=== PATIENT | female | born 1940 | race Caucasian/White ===

== ENCOUNTER 2020-01-25 19:46 | Emergency (ER) | payer BC, OTHER ==
--- NOTE | 2020-01-25 20:51 | RAD REPORT ---
EXAM DESCRIPTION: RAD - Chest Single View - 01/25/2020 8:37 pm CLINICAL HISTORY: CHEST PAIN Chest pain. COMPARISON: Chest Pa And Lat (2 Views) dated 03/10/2017; Chest Pa And Lat (2 Views) dated 07/16/2016; C HEST PA AND LAT 2 VIEW dated 04/20/2008 FINDINGS: Portable technique limits examination quality. The lungs are emphysematous but grossly clear. The heart is normal in size. 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 IMPRESSION: Mild COPD
[2020-01-25 20:55] LABS: Absolute Lymphocytes (CBC) 0.7 K/uL (0.7-4.9); Basophils % 0.2 % (0-1.3); Hematocrit 32.7 % (36.0-45.0); Lymphocytes % 5.1 % (15.3-44.8); MPV 9.3 fL (7.6-11.3); RBC Red Blood Cell Count 3.51 M/uL (3.86-4.86)
[2020-01-25 20:56] LABS: Protime INR 1.09
[2020-01-25 21:13] LABS: Albumin 4.2 g/dL (3.4-5.0); Alkaline Phosphatase 128 U/L (45-117); BUN Blood Urea Nitrogen 29 mg/dL (7-18); Bicarbonate 24 mmol/L (21-32); Bilirubin Direct 0.3 mg/dL (0-0.2); Bilirubin Total 0.8 mg/dL (0.2-1.0); Glucose Level 79 mg/dL (74-106); Lipase 5380 U/L (73-393); Magnesium 2.3 mg/dL (1.8-2.4); NT PRO-BNP 1724 pg/mL (<450); Potassium 3.8 mmol/L (3.5-5.1); Protein, Total 7.5 g/dL (6.4-8.2); Sodium Level 133 mmol/L (136-145); Troponin (Emerg Dept Use Only) < 0.02 ng/mL (0.0-0.045)
[2020-01-25 21:15] LABS: ALT/SGPT 812 U/L (12-78); AST/SGOT 594 U/L (15-37)
--- NOTE | 2020-01-25 21:58 | RAD REPORT ---
EXAM DESCRIPTION: US - Abdomen Exam Limited - 01/25/2020 9:35 pm CLINICAL HISTORY: ABD PAIN COMPARISON: No comparisons FINDINGS: The gallbladder is very contracted and thus poorly assessed. No gross stone is visible. Th e common bile duct is normal measuring 2 mm. The liver demonstrates no findings of intrahepatic biliary dilatation. IMPRESSION: Significantly orion gallbladder limiting study quality.
[2020-01-25] MEDS ORDERED: PIPER/TAZO/NS 3.375gm 3.375 GM/100 ML BAG ONE (22:06)
--- NOTE | 2020-01-25 23:12 | EDPHYS ---
Physician Documentation [facility] Name: Daisy Valdes Age: 79 yrs Sex: Female : 1940 Arrival Date: 01/25/2020 Time: 19:48 Bed 20 Private MD: ED Physician Jackson Wright HPI: 01/24 20:18 This 79 yrs old Female presents to ER via Ambulatory with complaints of Chest pkl Pain. 20:18 The patient or guardian reports chest pain that is located primarily in the substernal pkl area. Onset: last night, and happened this evening. The chest pain is described as dull. Historical: - Allergies: 20:49 No Known Allergies; jd3 - Home Meds: 20:49 carvedilol oral oral [Active]; Tylenol #3 Oral [Active]; amlodipine oral [Active]; jd3 losartan oral oral [Active]; Bactrim DS Oral [Active]; atorvastatin oral oral [Active]; eye drops [Active]; - PMHx: 01/25 00:58 Hypertension; sg - Immunization history:: Adult Immunizations up to date. - Social history:: Smoking status: Patient reports the use of cigarette tobacco products, unknown amount. ROS: 01/24 20:18 Eyes: Negative for injury, pain, redness, and discharge, ENT: Negative for injury, pkl pain, and discharge, Neck: Negative for injury, pain, and swelling. Cardiovascular: Positive for chest pain, of the substernal. Respiratory: Negative for cough, shortness of breath. Abdomen/GI: Negative for abdominal pain, nausea, vomiting, and diarrhea. Back: Negative for acute changes. : Negative for urinary symptoms. MS/extremity: Negative for acute changes. Skin: Negative for rash. Neuro: Negative for altered mental status, loss of consciousness. Exam: 20:18 Head/Face: Normocephalic, atraumatic. Eyes: Pupils equal round and reactive to light, pkl extra-ocular motions intact. Lids and lashes normal. Conjunctiva and sclera are non-icteric and not injected. Cornea within normal limits. Periorbital areas with no swelling, redness, or edema. ENT: Nares patent. No nasal discharge, no septal abnormalities noted. Tympanic membranes are normal and external auditory canals are clear. Oropharynx with no redness, swelling, or masses, exudates, or evidence of obstruction, uvula midline. Mucous membranes moist. Neck: Trachea midline, no thyromegaly or masses palpated, and no cervical lymphadenopathy. Supple, full range of motion without nuchal rigidity, or vertebral point tenderness. No Meningismus. Chest/axilla: Normal chest wall appearance and motion. Nontender with no deformity. No lesions are appreciated. Cardiovascular: Regular rate and rhythm with a normal S1 and S2. No gallops, murmurs, or rubs. Normal PMI, no JVD. No pulse deficits. Respiratory: Lungs have equal breath sounds bilaterally, clear to auscultation and percussion. No rales, rhonchi or wheezes noted. No increased work of breathing, no retractions or nasal flaring. Abdomen/GI: Soft, non-tender, with normal bowel sounds. No distension or tympany. No guarding or rebound. No evidence of tenderness throughout. Back: No spinal tenderness. No costovertebral tenderness. Full range of motion. Skin: Warm, dry with normal turgor. Normal color with no rashes, no lesions, and no evidence of cellulitis. MS/ Extremity: Pulses equal, no cyanosis. Neurovascular intact. Full, normal range of motion. Neuro: Awake and alert, GCS 15, oriented to person, place, time, and situation. Cranial nerves II-XII grossly intact. Motor strength 5/5 in all extremities. Sensory grossly intact. Cerebellar exam normal. Normal gait. Vital Signs: 20:11 BP 137 / 63; Pulse 81; Resp 19 S; Temp 97.4(TE); Pulse Ox 95% on R/A; Weight 49.9 kg jd3 (R); Height 4 ft. 10 in. (147.32 cm) (R); Pain 7/10; 20:50 BP 128 / 96; Pulse 72; Resp 17 S; Pulse Ox 94% on R/A; Pain 0/10; jd3 21:37 BP 142 / 68; Pulse 76; Resp 17 S; Pulse Ox 95% on R/A; jd3 22:36 BP 155 / 74; Pulse 90; Resp 18 S; Pulse Ox 95% on R/A; jd3 23:43 BP 132 / 59; Pulse 86; Resp 18 S; Pulse Ox 96% on R/A; jd3 01/25 01:40 BP 130 / 60; Pulse 72; Resp 18; Temp 97.4; Pulse Ox 97% on R/A; Pain 0/10; sg 01/24 20:11 Body Mass Index 22.99 (49.90 kg, 147.32 cm) jd3 MDM: 01/24 20:01 Patient medically screened. pkl 21:28 Data reviewed: vital signs, nurses notes, lab test result(s), EKG, radiologic studies, pkl CT scan, plain films, ultrasound. ED course: Talked to Dr. Ceballos, admit. To consult Dr. Dang. Talked Seferino ( Dr. Dang' s staff ) regarding consult requested. 21:41 ED course: Talked to Dr. Dang, patient has gallstone pancreatitis and need ERCP. To pkl transter patient to [facility]. 01/24 20:16 Order name: Basic Metabolic Panel; Complete Time: 21:16 pk 01/24 20:16 Order name: CBC with Diff; Complete Time: 20:58 pk 01/24 20:16 Order name: LFT's; Complete Time: 21:17 pk 01/24 20:16 Order name: Magnesium; Complete Time: 21:17 pk 01/24 20:16 Order name: NT PRO-BNP; Complete Time: 21:17 pk 01/24 20:16 Order name: PT-INR; Complete Time: 20:58 pk 01/24 20:16 Order name: Troponin (emerg Dept Use Only); Complete Time: 21:17 pk 01/24 20:16 Order name: XRAY Chest (1 view); Complete Time: 20:58 pk 01/24 20:16 Order name: Lipase; Complete Time: 21:17 pk 01/24 20:17 Order name: US Abdomen Limited; Complete Time: 22:07 pk 01/24 21:28 Order name: CT Abd/Pelvis - IV Contrast Only pk 01/25 00:48 Order name: SARS-COV-2 RT PCR; Complete Time: 02:10 EDMA 01/24 20:16 Order name: EKG; Complete Time: 20:17 pk 01/24 20:16 Order name: Cardiac monitoring; Complete Time: 20:24 pk 01/24 20:16 Order name: EKG - Nurse/Tech; Complete Time: 20:23 pkl 01/24 20:16 Order name: IV Saline Lock; Complete Time: 20:39 pkl 01/24 20:16 Order name: Labs collected and sent; Complete Time: 20:39 pkl 01/24 20:16 Order name: O2 Per Protocol; Complete Time: 20:24 pkl 01/24 20:16 Order name: O2 Sat Monitoring; Complete Time: 20:24 pkl Administered Medications: 22:35 Drug: Zosyn 3.375 grams Route: IVPB; Infused Over: 60 mins; Site: right antecubital; jd3 23:35 Follow up: Response: No adverse reaction; IV Status: Completed infusion; IV Intake: jd3 100ml 23:13 Drug: NS 0.9% 500 ml Route: IV; Rate: bolus; Site: right antecubital; jd3 23:42 Follow up: Response: No adverse reaction; IV Status: Completed infusion; IV Intake: jd3 500ml 23:41 Drug: NS 0.9% 1000 ml Route: IV; Rate: 100 ml/hr; Site: right antecubital; jd3 23:42 Follow up: Response: No adverse reaction; IV Status: Infusion continued upon transfer j 01/25 01:52 Follow up: Response: No adverse reaction; IV Status: Infusion continued upon transfer; sg IV Intake: 700ml Disposition: 01/25/20 23:11 Transfer ordered to [facility]. Diagnosis is Gallstone pancreatitis. - Reason for transfer: Higher level of care. - Accepting physician is Dr. Zambrano. - Condition is Stable. - Problem is new. - Symptoms have improved. Signatures: Dispatcher [employer] EDMA Ashvin Randhawa RN Jackson Darden MD MD pkl Davies, Jonathon, RN RN jd3 Corrections: (The following items were deleted from the chart) 01/24 22:42 22:02 CORONAVIRUS+MR.LAB.BRZ ordered. [facility] 01/25 01:52 01/24 23:11 01/25/2020 23:11 Transfer ordered to [facility]. Diagnosis is sg Gallstone pancreatitis. Reason for transfer: Higher level of care. Accepting physician is Dr. Zambrano. Condition is Stable. Problem is new. Symptoms have improved. pkl
--- NOTE | 2020-01-25 23:12 | ER ---
Nurse's Notes [facility] Name: Daisy Valdes Age: 79 yrs Sex: Female : 1940 Arrival Date: 01/25/2020 Time: 19:48 Bed 20 Private MD: Diagnosis: Gallstone pancreatitis Presentation: 01/24 20:04 Chief complaint: Patient states: initial chest pain last night started in right dm5 shoulder to mid chest and down. It went away and then happened again this evening across breast area. pT rated pain at 10/10 when it occurs. Pt states she thinks it could possibly be her gallbladder because it has happened before after she ate. Coronavirus screen: Client denies travel out of the [place] in the last 14 days. At this time, the client does not indicate any symptoms associated with coronavirus-19. Ebola Screen: Patient negative for fever greater than or equal to 101.5 degrees Fahrenheit, and additional compatible Ebola Virus Disease symptoms Patient denies exposure to infectious person. Patient denies travel to an Ebola-affected area in the 21 days before illness onset. No symptoms or risks identified at this time. Onset of symptoms was January 25, 2020. 20:04 Method Of Arrival: Ambulatory dm5 20:04 Acuity: YANNICK 2 dm5 20:15 Initial Sepsis Screen: Does the patient meet any 2 criteria? No. Patient's initial jd3 sepsis screen is negative. Does the patient have a suspected source of infection? No. Patient's initial sepsis screen is negative. Risk Assessment: Do you want to hurt yourself or someone else? Patient reports no desire to harm self or others. Historical: - Allergies: 20:49 No Known Allergies; jd3 - Home Meds: 20:49 carvedilol oral oral [Active]; Tylenol #3 Oral [Active]; amlodipine oral [Active]; jd3 losartan oral oral [Active]; Bactrim DS Oral [Active]; atorvastatin oral oral [Active]; eye drops [Active]; - PMHx: 01/25 00:58 Hypertension; sg - Immunization history:: Adult Immunizations up to date. - Social history:: Smoking status: Patient reports the use of cigarette tobacco products, unknown amount. Screenin/19 20:14 Abuse screen: Denies threats or abuse. Nutritional screening: No deficits noted. jd3 Tuberculosis screening: No symptoms or risk factors identified. Fall Risk Ambulatory Aid- None/Bed Rest/Nurse Assist (0 pts). Gait- Normal/Bed Rest/Wheelchair (0 pts) Mental Status- Oriented to own ability (0 pts). Total Morejon Fall Scale indicates No Risk (0-24 pts). Assessment: 20:12 General: Appears in no apparent distress. comfortable, Behavior is calm, cooperative, jd3 appropriate for age. Pain: Complains of pain in chest Pain does not radiate. Quality of pain is described as pressure, Pain began 2-3 days ago. Is intermittent. Neuro: Level of Consciousness is awake, alert, obeys commands, Oriented to person, place, time, situation. Cardiovascular: Capillary refill < 3 seconds Patient's skin is warm and dry. Rhythm is regular. Respiratory: Airway is patent Respiratory effort is even, unlabored, Respiratory pattern is regular, symmetrical, Denies cough, shortness of breath. GI: No signs and/or symptoms were reported involving the gastrointestinal system. Abdomen is flat, non-distended, Abd is soft and non tender X 4 quads. : No signs and/or symptoms were reported regarding the genitourinary system. EENT: No signs and/or symptoms were reported regarding the EENT system. Derm: Skin is intact, Skin is dry, Skin is normal, Skin temperature is warm. Musculoskeletal: Circulation, motion, and sensation intact. Range of motion: intact in all extremities. 20:49 Reassessment: Patient appears in no apparent distress at this time. No changes from jd3 previously documented assessment. Patient and/or family updated on plan of care and expected duration. Pain level reassessed. Patient is alert, oriented x 3, equal unlabored respirations, skin warm/dry/pink. 21:38 Reassessment: Patient appears in no apparent distress at this time. Patient and/or jd3 family updated on plan of care and expected duration. Pain level reassessed. Patient is alert, oriented x 3, equal unlabored respirations, skin warm/dry/pink. 22:35 Reassessment: Patient appears in no apparent distress at this time. Patient and/or jd3 family updated on plan of care and expected duration. Pain level reassessed. Patient is alert, oriented x 3, equal unlabored respirations, skin warm/dry/pink. Patient denies pain at this time. 23:42 Reassessment: Patient appears in no apparent distress at this time. Patient and/or jd3 family updated on plan of care and expected duration. Pain level reassessed. Patient is alert, oriented x 3, equal unlabored respirations, skin warm/dry/pink. awaiting room assignment for transfer Patient denies pain at this time. 01/25 00:13 Reassessment: Patient appears in no apparent distress at this time. pt and pt family sg updated that the COVID test is having to be re ran due to an error with the machine per Rosa in outside lab, pt and pt family stated understanding. 00:15 Reassessment: Patient appears in no apparent distress at this time. Patient and/or sg family updated on plan of care and expected duration. Pain level reassessed. Patient is alert, oriented x 3, equal unlabored respirations, skin warm/dry/pink. Patient denies pain at this time. Vital Signs: 01/24 20:11 BP 137 / 63; Pulse 81; Resp 19 S; Temp 97.4(TE); Pulse Ox 95% on R/A; Weight 49.9 kg jd3 (R); Height 4 ft. 10 in. (147.32 cm) (R); Pain 7/10; 20:50 BP 128 / 96; Pulse 72; Resp 17 S; Pulse Ox 94% on R/A; Pain 0/10; jd3 21:37 BP 142 / 68; Pulse 76; Resp 17 S; Pulse Ox 95% on R/A; jd3 22:36 BP 155 / 74; Pulse 90; Resp 18 S; Pulse Ox 95% on R/A; jd3 23:43 BP 132 / 59; Pulse 86; Resp 18 S; Pulse Ox 96% on R/A; jd3 01/25 01:40 BP 130 / 60; Pulse 72; Resp 18; Temp 97.4; Pulse Ox 97% on R/A; Pain 0/10; sg 01/24 20:11 Body Mass Index 22.99 (49.90 kg, 147.32 cm) d3 ED Course: 01/24 19:48 Patient arrived in ED. ag3 20:01 Jackson Wright MD is Attending Physician. pkl 20:05 Triage completed. dm5 20:11 Moe, Paulino, RN is Primary Nurse. jd3 20:12 Arm band placed on. EKG completed in triage. Results shown to MD. jd3 20:15 Patient has correct armband on for positive identification. Placed in gown. Bed in low jd3 position. Call light in reach. Side rails up X2. Adult w/ patient. desk monitor on. Pulse ox on. NIBP on. 20:15 Patient maintains SpO2 saturation greater than 95% on room air. jd3 20:37 XRAY Chest (1 view) In Process Unspecified. EDMS 20:39 No provider procedures requiring assistance completed. Initial lab(s) drawn, by me, ca1 sent to lab. Inserted saline lock: 20 gauge in right antecubital area, using aseptic technique. Blood collected. 21:16 Notified ED physician of a critical lab result(s). ALT- 812, AST- 594. jd3 21:35 US Abdomen Limited In Process Unspecified. EDMS 21:44 Initiated transfer with Nubia Calero at [facility]. tt3 21:58 Nubia called back with their GI specialist to speak with Dr. Wright regarding the tt3 transfer request. 22:08 Nubia called back to speak with Dr. Wright regarding the transfer request. Per Dr. Wright tt3 the request was denied due to capacity. 22:10 Initiated transfer at [facility] with Zainab Bhatti. tt3 22:16 CT Abd/Pelvis - IV Contrast Only In Process Unspecified. EDMS 22:36 Zainab Bhatti called back from [facility] and stated that the transfer request tt3 was denied due to capacity. 22:42 Initiated transfer at [facility] with Traciemitzi. Placed on hold while she checked for beds tt3 and stated she would page their physician and call back. 23:02 Grazyna called back with their physician to speak with Dr. Wright regarding the transfer tt3 request. 23:13 Grazyna called back and requested a face sheet be faxed to . Stated that tt3 once covid results come back to call and provide them. The accepting physician is Karime Duarte. 23:43 Patient transferred, IV remains in place. jd3 23:59 Primary Nurse role handed off by Paulino Moe, NORTH sg 23:59 Ashvin Randhawa, RN is Primary Nurse. sg Administered Medications: 22:35 Drug: Zosyn 3.375 grams Route: IVPB; Infused Over: 60 mins; Site: right antecubital; jd3 23:35 Follow up: Response: No adverse reaction; IV Status: Completed infusion; IV Intake: jd3 100ml 23:13 Drug: NS 0.9% 500 ml Route: IV; Rate: bolus; Site: right antecubital; jd3 23:42 Follow up: Response: No adverse reaction; IV Status: Completed infusion; IV Intake: jd3 500ml 23:41 Drug: NS 0.9% 1000 ml Route: IV; Rate: 100 ml/hr; Site: right antecubital; jd3 23:42 Follow up: Response: No adverse reaction; IV Status: Infusion continued upon transfer [facility] 01/25 01:52 Follow up: Response: No adverse reaction; IV Status: Infusion continued upon transfer; IV Intake: 700ml Intake: 01/24 23:35 IV: 100ml; Total: 100ml. [facility] 23:42 IV: 500ml; Total: 600ml. [facility] 01/25 01:52 IV: 700ml; Total: 1300ml. sg Outcome: 01/24 23:11 ER care complete, transfer ordered by . isidoro 01/25 01:18 Transferred by ground EMS to [facility], Transfer form completed. sg Transferred Note: report given to Danni KAT with [facility] Condition: good Instructed on follow up and referral plans. the need for transfer, safety practices, Demonstrated understanding of instructions. 01:52 Patient left the ED. Signatures: Dispatcher [facility] DANNYMI Linn Wilson RN RN dm5 Gay, Steven, RN RN Jackson Messina MD MD pkl Davies, Jonathon, RN RN [email or web address] Maria Luisa Clancy Cheryl, RN RN ca1 Trim, Tyler tt3 Corrections: (The following items were deleted from the chart) 01/24 22:09 22:08 Nubia called back to speak with Dr. Wright regarding the transfer request. tt3 tt3 22:42 22:35 CORONAVIRUS+ drawn and sent. [facility] EDMI 23:16 22:42 Initiated transfer at [facility] with Brandon. Placed on hold while she checked for tt3 beds and stated she would page their physician and call back. tt3
[2020-01-25] MEDS ORDERED: NA CHLORIDE 0.9% 1,000 ML ONE (23:22)
--- NOTE | 2020-01-26 06:23 | EKG ---
Test Date: 2020-01-25 Test Time: 20:05:03 Picture Painter: JACKELIN MEASUREMENT RESULTS: Intervals: Rate: 80 TX: 148 QRSD: 72 QT: 344 QTc: 396 [place]: P: 30 TX: 148 QRS: 22 T: 32 INTERPRETIVE STATEMENTS: Normal sinus rhythm Possible Left atrial enlargement Anterior infarct, age undetermined Abnormal ECG No previous ECG available for comparison Electronically Signed On 01-26-20 06:22:33 FISH SMOKER by Arya Patel
[2020-01-26 20:36] VITALS: TEMP 97.4
[2020-01-26 20:49] VITALS: BP 130/60; O2SAT 97
--- NOTE | 2020-01-26 21:04 | RAD REPORT ---
EXAM DESCRIPTION: CT Abdomen and Pelvis With Intravenous Contrast CLINICAL HISTORY: The patient is 79 years old and is Female; ABD PAIN TECHNIQUE: Axial computed tomography images of the abdomen and pelvis with intravenous contrast. S agittal and coronal reformatted images were created and reviewed. This CT exam was performed using one or more of the following dose reduction techniques: automated exposure control, adjustment of t he mA and/or kV according to patient size, and/or use of iterative reconstruction technique. COMPARISON: No relevant prior studies available. FINDINGS: LUNG BASES: Unremarkable. No mass. No consolidation. ABDOMEN: LIVER: Unremarkable. No mass. GALLBLADDER AND BILE DUCTS: Multiple calcified gallstones are present within the gallbladder. Vignesh iary dilatation is noted with the common bile duct measuring up to 0.8 cm. PANCREAS: No ductal dilation. No mass. SPLEEN: Unremarkable. ADRENALS: Unremarkable. No mass. KIDNEYS AND URETERS: Unremarkable. The kidneys enhance symmetrically. No obstructing renal or ure teral calculus is seen. No hydronephrosis or hydroureter. No perinephric fluid or stranding. STOMACH AND BOWEL: The stomach is decompressed. The majority the small bowel is also decompressed . Evaluation of bowel is limited secondary to the lack of mesenteric fat in oral contrast. Stool is p resent throughout colon. There is no bowel obstruction. PELVIS: APPENDIX: No findings to suggest acute appendicitis. BLADDER: The bladder is moderately distended. REPRODUCTIVE: Unremarkable as visualized. ABDOMEN and PELVIS: INTRAPERITONEAL SPACE: Unremarkable. No free air. No significant fluid collection. BONES/JOINTS: The bones are osteopenic. Multilevel degenerative change of the spine is present. V ertebral plana of L1 is noted. SOFT TISSUES: The soft tissues are normal. VASCULATURE: Atherosclerosis of the vasculature is present. Atherosclerosis of the vasculature is present. The vessels are normal in caliber. No abdominal aortic aneurysm. LYMPH NODES: Unremarkable. No enlarged lymph nodes. IMPRESSION: Cholelithiasis with moderate intra and extrahepatic biliary dilatation. Further evaluati on with ultrasound and/or MRCP is recommended. Electronically signed by: Ashley Joya MD 01/25/2020 10:32 PM MECHANOTHERAPIST Due to temporary technical issues with the PACS/Fluency reporting system, reports are being signed by the in house radiologists without review as a courtesy to insure prompt reporting. The interpreting radiologist is fully responsible for the content of the report.
== END 2020-01-26 01:52 | disposition short-term general hospital (02) ==
LOC: ER 19:46
DX: K85.10 Biliary acute pancreatitis without necrosis or infection (principal); Z20.828 Contact with and (suspected) exposure to other viral communicable diseases; I10 Essential (primary) hypertension; F17.210 Nicotine dependence, cigarettes, uncomplicated
CPT/HCPCS: 96365; 93005; 85025; 80048; 36415; 83735; 85610; 80076; 84484; 83690; 83880; 74177; 71045; 76705; 99285; U0003; Q9967; J2543; J7030

== ENCOUNTER 2021-07-12 10:00 | Emergency (ER) | payer OTHER, BC ==
--- OUTSIDE RECORDS SUMMARY | 2021-07-12 10:04 | XMS REPORT | Continuity of Care Document ---
:1940 Author Organization [facility] t Address [address] [place] [address] Care Team Providers Name Role Phone CLEWING Attending Clinician Unavailable MD Holly YE Attending Clinician Unavailable EPHRAIM Admitting Clinician Unavailable MD Holly YE Admitting Clinician Unavailable Problems This patient has no known problems. Allergies, Adverse Reactions, Alerts This patient has no known allergies or adverse reactions. Medications This patient has no known medications. Procedures This patient has no known procedures. Encounters Start End Encounter Admission Attending Care Care Encounter Source Date/Time Date/Time Type Type Clinicians Facility Department ID 2020-04-26 2020-04-26 Outpatient [facility] [id number] [place] 00:00:00 00:00:[address] 2020-04-05 2020-04-05 Outpatient [facility] [id number] [place] 00:00:00 00:00:[address] 2020-01-26 2020-01-30 Inpatient [facility] [id number] [place] 00:00:00 00:00:[address] [facility] [address] Results Test Description Test Time Test Comments Results Result Comments Source SARS-CoV-2 (COVID-19) RNA [Presence] in Respiratory sp ecimen by 2020-01-28 14:34:34 [facility] with probe detection Test Item Value Reference Range Interpretation Comme nts SARS-CoV-2 (COVID-19) RNA [Presence] in Respiratory Not detected No t-Detected specimen by [facility] with probe detection (test code = 50875-9)
[2021-07-12] MEDS ORDERED: LIDOCAINE 4% PATCH ONE (10:31)
--- NOTE | 2021-07-12 11:43 | RAD REPORT ---
EXAM DESCRIPTION: RAD - Shoulder Right 2 View - 07/12/2021 11:34 am CLINICAL HISTORY: PAIN COMPARISON: No comparisons FINDINGS/IMPRESSION: No acute fracture. No malalignment. No significant focal degenerative changes.
--- NOTE | 2021-07-12 12:50 | EDPHYS ---
Physician Documentation [facility] Name: Daisy Valdes Age: 80 yrs Sex: Female : 1940 Arrival Date: 07/12/2021 Time: 10:02 Bed 15 Private MD: Brandon Ceballos C ED Physician Ron Dobbs HPI: 07/12 10:30 This 80 yrs old Female presents to ER via Wheelchair with complaints of Shoulder Pain. pm1 10:30 The patient or guardian complains of pain. pm1 10:30 right shoulder and right trapezius. Context: The patient reports no obvious deformity. pm1 negative for injury. Onset: The symptoms/episode began/occurred chronic for many years, worse the past 1 week. Modifying factors: the symptoms are alleviated by nothing. The symptoms are aggravated by movement. Associated signs and symptoms: Pertinent negatives: Numbness in right arm tingling, Weakness in right arm. Severity of symptoms: in the emergency department the symptoms are actually worse. Treatment prior to arrival includes: prescription medications, codeine, prior to arrival. The patient has not recently seen a physician. Historical: - Allergies: 10:24 No Known Allergies; ss - PMHx: 10:24 Hypertension; Osteoporosis; ss - Immunization history:: Client reports receiving the 2nd dose of the Covid vaccine. - Social history:: Smoking status: Patient denies any tobacco usage or history of. ROS: 10:30 Constitutional: Negative for fever, chills, and weight loss, Cardiovascular: Negative pm1 for chest pain, palpitations, and edema, Respiratory: Negative for shortness of breath, cough, wheezing, and pleuritic chest pain. 10:30 Skin: Negative for injury, rash, and discoloration, Neuro: Negative for headache, weakness, numbness, tingling, and seizure. 10:30 MS/extremity: Positive for pain, of the right trapezius and right shoulder, Negative for decreased range of motion, deformity. 10:30 All other systems are negative. Exam: 10:30 Constitutional: This is a well developed, well nourished patient who is awake, alert, pm1 and in no acute distress. Head/Face: Normocephalic, atraumatic. 10:30 Skin: Warm, dry with normal turgor. Normal color with no rashes, no lesions, and no evidence of cellulitis. 10:30 Cardiovascular: Exam negative for acute changes, Rate: normal, Rhythm: regular, Pulses: no pulse deficits are appreciated, Heart sounds: normal. 10:30 Respiratory: Exam negative for acute changes, respiratory distress, shortness of breath. 10:30 Back: kyphosis, that is marked. 10:30 Musculoskeletal/extremity: Extremities: grossly normal except: noted in the right trapezius and right shoulder: tenderness, There is no evidence of decreased ROM, deformity, the right hand Sensation intact. Vital Signs: 10:22 BP 176 / 82; Pulse 108; Resp 17; Temp 98.2(TE); Pulse Ox 100% on R/A; Weight 42.64 kg; ss 12:12 BP 152 / 84; Pulse 99; Resp 18; Pulse Ox 100% on R/A; ld1 13:08 BP 146 / 82; Pulse 86; Resp 18; Pulse Ox 100% on R/A; Pain 5/10; ld1 MDM: 10:30 Patient medically screened. pm1 12:47 Data reviewed: vital signs. Data interpreted: Pulse oximetry: on room air is 100 %. pm1 Interpretation: normal. Counseling: I had a detailed discussion with the patient and/or guardian regarding: the historical points, exam findings, and any diagnostic results supporting the discharge/admit diagnosis, radiology results, the need for outpatient follow up, a family practitioner, to return to the emergency department if symptoms worsen or persist or if there are any questions or concerns that arise at home. 12:58 ED course: Patient also reports mild left shoulder and trapezius pain. Symptoms are due pm1 to her kyphosis . 07/12 10:28 Order name: Shoulder Right (2 View) XRAY; Complete Time: 12:05 pm1 Administered Medications: 10:28 Drug: Lidoderm Patch 5 % (700 mg/patch) 1 patches {Note: 4 % available. OK per lauryn Voss AIRFRAME AND POWERPLANT MECHANIC. Applied to R shoulder as requested.} Route: Topical; Site: affected area; 12:55 Drug: [place] (HYDROcodone-acetaminophen) 5 mg-325 mg 1 tabs Route: PO; ld1 13:08 Follow up: Response: No adverse reaction ld1 12:55 Drug: Decadron (dexamethasone) 10 mg Route: IM; Site: right deltoid; ld1 13:08 Follow up: Response: No adverse reaction ld1 Disposition Summary: 07/12/21 12:49 Discharge Ordered Location: Home pm1 Problem: new pm1 Symptoms: have improved pm1 Condition: Stable pm1 Diagnosis - Pain in right shoulder pm1 Followup: pm1 - With: Emergency Department - When: As needed - Reason: Worsening of condition Followup: pm1 - With: Private Physician - When: 2 - 3 days - Reason: Recheck today's complaints, Continuance of care, Re-evaluation by your physician Discharge Instructions: - Discharge Summary Sheet pm1 - Shoulder Pain pm1 Forms: - Medication Reconciliation Form pm1 - Thank You Letter pm1 - Antibiotic Education pm1 - Prescription Opioid Use pm1 Signatures: Dispatcher [employer] EDMS Darlin Gutierrez RN RN Bipin Bruce NP AIRFRAME AND POWERPLANT MECHANIC pm1 Liz Villagran RN RN ld1
--- NOTE | 2021-07-12 12:50 | ER ---
Nurse's Notes [facility] Name: Daisy Valdes Age: 80 yrs Sex: Female : 1940 Arrival Date: 07/12/2021 Time: 10:02 Bed 15 Private MD: Brandon Ceballos C Diagnosis: Pain in right shoulder Presentation: 07/12 10:22 Chief complaint: Patient states: Progressive R shoulder pain over the past few weeks, ss has gotten worse x 1 week. No known injury. Coronavirus screen: Client denies travel out of the [place] in the last 14 days. Ebola Screen: Patient denies exposure to infectious person. Patient denies travel to an Ebola-affected area in the 21 days before illness onset. Initial Sepsis Screen: Does the patient meet any 2 criteria? No. Patient's initial sepsis screen is negative. Does the patient have a suspected source of infection? No. Patient's initial sepsis screen is negative. Risk Assessment: Do you want to hurt yourself or someone else? Patient reports no desire to harm self or others. Onset of symptoms was June 2021. 10:22 Method Of Arrival: Wheelchair ss 10:22 Acuity: YANNICK 4 ss Historical: - Allergies: 10:24 No Known Allergies; ss - PMHx: 10:24 Hypertension; Osteoporosis; ss - Immunization history:: Client reports receiving the 2nd dose of the Covid vaccine. - Social history:: Smoking status: Patient denies any tobacco usage or history of. Screenin:14 Abuse screen: Denies threats or abuse. Denies injuries from another. Nutritional ld1 screening: No deficits noted. Tuberculosis screening: No symptoms or risk factors identified. Fall Risk None identified. Assessment: 12:12 General: Appears in no apparent distress. comfortable, Behavior is calm, cooperative, ld1 appropriate for age. Pain: Complains of pain in anterior aspect of right shoulder Pain does not radiate. Pain currently is 8 out of 10 on a pain scale. Quality of pain is described as throbbing. Neuro: Level of Consciousness is awake, alert, obeys commands, Oriented to person, place, time, situation. Cardiovascular: Capillary refill < 3 seconds Patient's skin is warm and dry. Respiratory: Airway is patent Respiratory effort is even, unlabored, Respiratory pattern is regular, symmetrical. GI: Abdomen is flat, non-distended. : No signs and/or symptoms were reported regarding the genitourinary system. EENT: No signs and/or symptoms were reported regarding the EENT system. Derm: No signs and/or symptoms reported regarding the dermatologic system. Musculoskeletal: Reports pain in right arm. Vital Signs: 10:22 BP 176 / 82; Pulse 108; Resp 17; Temp 98.2(TE); Pulse Ox 100% on R/A; Weight 42.64 kg; ss 12:12 BP 152 / 84; Pulse 99; Resp 18; Pulse Ox 100% on R/A; ld1 13:08 BP 146 / 82; Pulse 86; Resp 18; Pulse Ox 100% on R/A; Pain 5/10; ld1 ED Course: 10:02 Patient arrived in ED. mr 10:02 Brandon Ceballos MD is Private Physician. mr 10:24 Triage completed. ss 10:24 Arm band placed on right wrist. ss 10:27 Bipin Bruce NP is PHCP. pm1 10:27 Ron Dobbs MD is Attending Physician. pm1 11:35 Shoulder Right (2 View) XRAY In Process Unspecified. EDMS 12:06 Bed in low position. Call light in reach. Side rails up X 1. Door closed. Noise mb7 minimized. Warm blanket given. 12:09 Liz Villagran, NORTH is Primary Nurse. ld1 12:14 Patient has correct armband on for positive identification. Placed in gown. Cardiac ld1 monitor on. Pulse ox on. NIBP on. 12:14 No provider procedures requiring assistance completed. ld1 13:09 Patient did not have IV access during this emergency room visit. ld1 Administered Medications: 10:28 Drug: Lidoderm Patch 5 % (700 mg/patch) 1 patches {Note: 4 % available. OK per lauryn Voss HOT END OPERATOR. Applied to R shoulder as requested.} Route: Topical; Site: affected area; 12:55 Drug: [place] (HYDROcodone-acetaminophen) 5 mg-325 mg 1 tabs Route: PO; ld1 13:08 Follow up: Response: No adverse reaction ld1 12:55 Drug: Decadron (dexamethasone) 10 mg Route: IM; Site: right deltoid; ld1 13:08 Follow up: Response: No adverse reaction ld1 Outcome: 12:49 Discharge ordered by . pm1 13:09 Discharged to home via wheelchair, with family. ld1 13:09 Condition: stable 13:09 Discharge instructions given to patient, family, Instructed on discharge instructions, follow up and referral plans. Demonstrated understanding of instructions, follow-up care. 13:09 Patient left the ED. ld1 Signatures: Dispatcher [employer] EDNC Debbie Torres mr Darlin Gutierrez RN RN ss Marinas, Patrick, NP HOT END OPERATOR pm1 Liz Villagran RN RN ld1 Debbie Covington mb7
[2021-07-12] MEDS ORDERED: dexAMETHasone 10 MG/ML VIAL ONE (13:05)
[2021-07-12] MEDS ORDERED: HYDROCODONE/APAP 5/325 MG TAB ONE (13:05)
[2021-07-12 13:22] VITALS: TEMP 98.2; O2SAT 100
[2021-07-12 13:25] VITALS: BP 146/82
== END 2021-07-12 13:09 | disposition home or self-care (01) ==
LOC: ER 10:00
DX: M25.511 Pain in right shoulder (principal); I10 Essential (primary) hypertension
CPT/HCPCS: 73030; 96372; 99284; J1100

== ENCOUNTER 2022-01-17 00:11 | Inpatient (IN) | payer OTHER, BC ==
--- OUTSIDE RECORDS SUMMARY | 2022-01-17 00:14 | XMS REPORT | Continuity of Care Document ---
:1940 Author Organization [facility] t Address [address] [place] [address] Care Team Providers Name Role Phone Asked, No Pcp Primary Care Physician Unavailable GAIL JJ Attending Clinician Unavailable MD TOSIN YE Attending Clinician Unavailable TOSIN YE Admitting Clinician Unavailable MD TOSIN YE Admitting Clinician Unavailable Problems Condition Condition Condition Status Onset Resolution Last Treating Co mments Source Name Details Category Date Date Treatment Clinician Date Pancreatit Pancreatit Disease Active 2019-03 M ethodi is due to is due to 03-27 common common 00:00: Hospita bile duct bile duct 00 l [place] Allergies, Adverse Reactions, Alerts This patient has no known allergies or adverse reactions. Social History Social Habit Start Date Stop Date Quantity Comments Source History [facility] Drinks History [facility] Alcohol intake 2020-01-31 2020-01-31 Lifetime [facility] 00:00:00 00:00:00 non-drinker Hospital (finding) History [facility] 2020-01-29 2020-01-29 1 [facility] Frequency 00:00:00 00:00:00 Hospita l Tobacco use and 2020-01-26 2020-01-26 Smokeless tobacco [facility]00 [facility]-user Hospital Sex Assigned At [birth year] [facility] 00:[facility]00 [facility] Smoking Status Start Date Stop Date Source Never smoked tobacco [facility] Medications Ordered Filled Start Stop Current Ordering Indication Dosage Frequency Signature Comments Components Source Medication Medication Date Date Medication? Clinician (SIG) Name Name amLODIPine 2019-03 Yes 5mg QD Take 5 mg [facility] (NORVASC) 5 1-[address] mg tablet 15:45: daily. Hospit a 53 l acetaminoph 2019-03 Yes [id number] 1{tbl} Q.[id number] Take 1 [facility] en-codeine -[id number] (TYLENOL 15:45: 3D mouth 3 Hospit a WITH 53 (three) l CODEINE #3) times a 300-30 mg day as per tablet needed for moderate pain .acute pain. atorvastati 2019-03 Yes 10mg QD Take 10 mg [facility] n (LIPITOR) 1-[address] 10 mg 15:45: daily. Hospita tablet 53 l brinzolamid 2019-03 Yes 1[drp] Q.5D Administer Methodi e (AZOPT) 1 -[address] % 15:45: the right Hospita ophthalmic 53 eye 2 l suspension (two) times a day. carvediloL 2019-03 Yes 25mg Q.5D Take 25 mg M ethodi (COREG) 25 -[address] MG tablet 15:45: (two) Hospita 53 times a l day with meals. denosumab 2019-03 Yes 60mg Inject 60 Met [facility] (PROLIA) 60 1-[address] mg/mL 15:45: the skin Hospita syringe 53 once. l syringe levothyroxi 2019-03 Yes 112ug QD Take 112 M ethodi ne 1-[address] (SYNTHROID) 15:45: mouth Hospi ta 112 mcg 53 daily. l tablet losartan 2019-03 Yes 100mg QD Take 100 Meth giles (COZAAR) 1-[address] 100 MG 15:45: mouth Hospita tablet 53 daily. l sodium 2019-03 Yes 1g Q.[id number] Take 1 g M ethodi chloride 1 -24 [id number] [address] mouth [address] gram tablet 15:45: 3D (three) Hos neftali 53 times a l day. sulfamethox 2019-03 Yes 1{tbl} QD Take 1 [facility] azole-trime 1-[address] thoprim 15:45: mouth Hospita (BACTRIM 53 daily. l DS) 800-160 mg per tablet timolol 2019-03 Yes 1[drp] QD Administer Me [facility] (TIMOPTIC) 1-[address] 0.5 % 15:45: the right Hospita ophthalmic 53 eye daily. l solution tiZANidine 2019-03 Yes 4mg Q24H Take 4 mg Me [facility] (ZANAFLEX) 1-[address] 4 MG tablet 15:45: daily as Ho spita 53 needed for l muscle spasms. triamcinolo 2019-03 Yes Q.5D Apply Metho di ne 1-[address] (KENALOG) 15:45: 2 (two) Hospi ta 0.1 % cream 53 times a l day. latanoprost 2019-03 Yes 1[drp] QD Administer [facility]i (XALATAN) 1-[address] 0.005 % 15:45: the right Hospi ta ophthalmic 53 eye l solution nightly. cholecalcif 2019-03 Yes 2000U QD Take 2,000 Methodi matthew, 1-[address] vitamin D3, 15:45: mouth Hospi ta 1,000 unit 53 daily. l tablet cyanocobala 2019-03 Yes 500ug QD Take 500 M ethodi min 1-[address] (VITAMIN 15:45: mouth Hospita B-12) 500 53 daily. l MCG tablet Immunizations Ordered Immunization Filled Immunization Date Status Commen ts Source Name Name [employer] COVID-19 MRNA 2020-04-26 Completed [facility] VACCINATION 00:00:00 Hospital PFIZER COVID-19 MRNA 2020-04-05 Completed [facility] VACCINATION 00:00:00 Hospital Procedures This patient has no known procedures. Plan of Care Planned Activity Planned Date Details Comments Source Future Scheduled 2022-01-17 INFLUENZA VACCINE Method [facility] Test 00:13:59 [code = INFLUENZA VACCINE] Future Scheduled 2022-01-17 HEPATITIS B VACCINES Met [facility] Test 00:13:59 (1 of 3 - 3-dose series) [code = HEPATITIS B VACCINES (1 of 3 - 3-dose series)] Future Scheduled 2022-01-17 SHINGLES VACCINES (1 Met [facility] Test 00:13:59 of 2) [code = SHINGLES VACCINES (1 of 2)] Future Scheduled 2022-01-17 65+ PNEUMOCOCCAL [facility] Test 00:13:59 VACCINE (1 - PCV) [code = 65+ PNEUMOCOCCAL VACCINE (1 - PCV)] Future Scheduled 2022-01-17 COVID-19 VACCINE (3 - Me [facility] Test 00:13:59 Booster for Pfizer series) [code = COVID-19 VACCINE (3 - Booster for Pfizer series)] Encounters Start End Encounter Admission Attending Care Care Encounter Source Date/Time Date/Time Type Type Clinicians Facility Department ID 2020-04-26 2020-04-26 Outpatient [facility] [id number] [place] 00:00:00 00:00:[address] 2020-04-05 2020-04-05 Outpatient [facility] [id number] [place] 00:00:00 00:00:[address] 2020-01-26 2020-01-30 Inpatient [facility] [id number] [place] 00:00:00 00:00:00 GAIL [facility] Results Test Description Test Time Test Comments Results Result Comments Source SARS-CoV-2 (COVID-19) RNA [Presence] in Respiratory sp ecimen by 2020-01-28 14:34:34 [facility] with probe detection Test Item Value Reference Range Interpretation Comme nts SARS-CoV-2 (COVID-19) RNA [Presence] in Respiratory Not detected No t-Detected specimen by [facility] with probe detection (test code = 57382-2) RALPH BOWMAN
[2022-01-17] MEDS ORDERED: CEFTRIAXONE 1000 MG/VIAL ONE (01:07)
[2022-01-17 01:50] LABS: Absolute Lymphocytes (CBC) 0.4 K/uL (0.7-4.9); Hematocrit 33.7 % (36.0-45.0); Lymphocytes % 2.6 % (15.3-44.8); MCV 93.1 fL (80-100); MPV 10.7 fL (7.6-11.3); RBC Red Blood Cell Count 3.62 M/uL (3.86-4.86)
[2022-01-17 01:53] LABS: Protime INR 1.03
[2022-01-17 02:14] LABS: Albumin 4.1 g/dL (3.4-5.0); Bilirubin Direct 0.3 mg/dL (0-0.2); Magnesium 1.6 mg/dL (1.8-2.4); Protein, Total 7.2 g/dL (6.4-8.2); Troponin High Sensitivity 56.6 pg/mL (<58.9)
[2022-01-17 02:17] LABS: Potassium 2.7 mmol/L (3.5-5.1)
[2022-01-17 02:21] LABS: SARS-COV-2 RT PCR NEGATIVE (NEGATIVE)
--- NOTE | 2022-01-17 03:22 | EDPHYS ---
Physician Documentation [facility] Name: Daisy Valdes Age: 81 yrs Sex: Female : 1940 Arrival Date: 01/17/2022 Time: 00:42 Bed 2 Private MD: ED Physician Ron Dobbs HPI: 01/17 03:13 This 81 yrs old Female presents to ER via EMS with complaints of DYSPNEA AND sandro HYPOXIA. 03:13 The patient has shortness of breath at rest. Onset: The symptoms/episode began/occurred sandro 3 day(s) ago. Duration: The symptoms are continuous, and are steadily getting worse. The patient's shortness of breath is aggravated by coughing, light activity, supine position, talking, is alleviated by rest, sitting up, application of supplemental oxygen. The patient or guardian reports cough, described as mild, difficulty breathing, flu symptoms, arthralgias. Onset: The symptoms/episode began/occurred 1 week(s) ago. Modifying factors: The symptoms are alleviated by nothing. the symptoms are aggravated by nothing. Associated signs and symptoms: Pertinent positives: non-productive cough. Severity of symptoms: At their worst the symptoms were moderate severe in the emergency department the symptoms are unchanged. Historical: - Allergies: 01:15 No Known Allergies; bb - PMHx: 01:15 Hypertension; Osteoporosis; Chronic back pain; bb - Immunization history:: Pfizer x 3. - Social history:: Smoking status: Patient denies any tobacco usage or history of. - Family history:: not pertinent. ROS: 03:13 Constitutional: Negative for fever, chills, and weight loss, Eyes: Negative for injury, sandro pain, redness, and discharge, ENT: Negative for injury, pain, and discharge, Neck: Negative for injury, pain, and swelling, Abdomen/GI: Negative for abdominal pain, nausea, vomiting, diarrhea, and constipation, Back: Negative for injury and pain, : Negative for injury, bleeding, discharge, and swelling, MS/Extremity: Negative for injury and deformity, Skin: Negative for injury, rash, and discoloration, Neuro: Negative for headache, weakness, numbness, tingling, and seizure, Psych: Negative for depression, anxiety, suicide ideation, homicidal ideation, and hallucinations, Allergy/Immunology: Negative for hives, rash, and allergies, Endocrine: Negative for neck swelling, polydipsia, polyuria, polyphagia, and marked weight changes. 03:13 Constitutional: Positive for malaise. 03:13 Cardiovascular: Positive for palpitations. 03:13 Respiratory: Positive for cough, shortness of breath, at rest. Exam: 03:13 Constitutional: This is a well developed, well nourished patient who is awake, alert, sandro and in no acute distress. Head/Face: Normocephalic, atraumatic. Eyes: Pupils equal round and reactive to light, extra-ocular motions intact. Lids and lashes normal. Conjunctiva and sclera are non-icteric and not injected. Cornea within normal limits. Periorbital areas with no swelling, redness, or edema. ENT: Nares patent. No nasal discharge, no septal abnormalities noted. Tympanic membranes are normal and external auditory canals are clear. Oropharynx with no redness, swelling, or masses, exudates, or evidence of obstruction, uvula midline. Mucous membranes moist. Neck: Trachea midline, no thyromegaly or masses palpated, and no cervical lymphadenopathy. Supple, full range of motion without nuchal rigidity, or vertebral point tenderness. No Meningismus. Chest/axilla: Normal chest wall appearance and motion. Nontender with no deformity. No lesions are appreciated. Abdomen/GI: Soft, non-tender, with normal bowel sounds. No distension or tympany. No guarding or rebound. No evidence of tenderness throughout. Back: No spinal tenderness. No costovertebral tenderness. Full range of motion. Female : Normal external genitalia. Skin: Warm, dry with normal turgor. Normal color with no rashes, no lesions, and no evidence of cellulitis. MS/ Extremity: Pulses equal, no cyanosis. Neurovascular intact. Full, normal range of motion. Neuro: Awake and alert, GCS 15, oriented to person, place, time, and situation. Cranial nerves II-XII grossly intact. Motor strength 5/5 in all extremities. Sensory grossly intact. Cerebellar exam normal. Normal gait. Psych: Awake, alert, with orientation to person, place and time. Behavior, mood, and affect are within normal limits. 03:13 Cardiovascular: Rate: tachycardic, Rhythm: regular, Pulses: Pulses are 4+ in bilateral radial, brachial, femoral, popliteal, posterior tibial and and dorsalis pedis arteries.. Heart sounds: normal, Edema: 1+ edema to level of left midcalf and right midcalf, JVD: is noted bilaterally, to 2 cm. 03:13 ECG was reviewed by the Attending Physician. Vital Signs: 01:00 BP 139 / 59; Pulse 112; Resp 28 S; Temp 97.5(A); Pulse Ox 91% on R/A; Weight 42.18 kg bb (R); Height 5 ft. 5 in. (165.10 cm) (R); 01:18 Pulse Ox 96% on 4 lpm NC; bb 02:15 BP 126 / 82; Pulse 118; Resp 28; Pulse Ox 100% on R/A; aa9 02:45 BP 128 / 69; Pulse 124; Resp 30; Pulse Ox 100% on R/A; aa9 03:45 BP 119 / 73; Pulse 127; Resp 37; Pulse Ox 100% on R/A; aa9 04:00 BP 131 / 76; Pulse 119; Resp 26; Pulse Ox 100% on BiPAP; aa9 04:15 BP 141 / 91; Pulse 125; Resp 30; Pulse Ox 100% on BiPAP; aa9 01:00 Body Mass Index 15.48 (42.18 kg, 165.10 cm) bb MDM: 00:54 Patient medically screened. sandro 03:16 Differential diagnosis: Anemia Anxiety Reaction asthma, Bronchitis CHF exacerbation, sandro Chronic Obstructive Pulmonary Disease obstructed airway, bronchitis, flu, URI, pneumonia, Pneumothorax pulmonary edema, reactive airway disease, Sepsis. Antibiotic administration: ZOSYN. The patient's Wells Deep Vein Thrombosis Score was calculated as follows: Heart Rate >100 BPM (1.5 Pts) Total Score: 0-2 Pts- Low Risk. The patient's pulmonary embolism risk score was calculated as follows: the patients heart rate is greater than 100 beats per minute (1.5 Pts) Total Score: 0-2 points. This patient was found to be at low risk for a pulmonary embolism by using the Well's assessment criteria. Immunization status: Pneumococcal vaccine: Influenza vaccine: Data reviewed: vital signs, nurses notes, lab test result(s), EKG, radiologic studies, plain films. Data interpreted: monitoring manager: rate is 112 beats/min, rhythm is regular, Pulse oximetry: on room air is 96 %. Test interpretation: by ED physician or midlevel provider: ECG, plain radiologic studies. Counseling: I had a detailed discussion with the patient and/or guardian regarding: the historical points, exam findings, and any diagnostic results supporting the discharge/admit diagnosis, lab results, radiology results. 01/17 00:56 Order name: Basic Metabolic Panel; Complete Time: 02:31 [facility] 01/17 00:56 Order name: CBC with Diff; Complete Time: 02:31 [facility] 01/17 00:56 Order name: LFT's; Complete Time: 02:31 [facility] 01/17 00:56 Order name: Magnesium; Complete Time: 02:31 [facility] 01/17 00:56 Order name: NT PRO-BNP; Complete Time: 02:31 [facility] 01/17 00:56 Order name: PT-INR; Complete Time: 02:31 [facility] 01/17 00:56 Order name: Troponin HS; Complete Time: 02:31 [facility] 01/17 00:56 Order name: Blood Culture Adult (2) [facility] 01/17 00:56 Order name: Lactate; Complete Time: 02:31 [facility] 01/17 00:56 Order name: COVID-19/FLU A+B (Document "Date of Onset" if Symptomatic); Complete Time: [facility] 02:31 01/17 00:56 Order name: Urine Microscopic Only; Complete Time: 07:51 [facility] 01/17 02:33 Order name: Urine Osmolality; Complete Time: 07:51 [facility] 01/17 02:33 Order name: Urine Sodium Random; Complete Time: 07:51 [facility] 01/17 02:33 Order name: Osmolality, Serum [facility] 01/17 00:56 Order name: XRAY Chest (1 view) [facility] 01/17 03:12 Order name: BIPAP [facility] 01/17 03:12 Order name: ABG; Complete Time: 07:51 [facility] 01/17 03:25 Order name: Lipase; Complete Time: 07:51 mw 01/17 04:31 Order name: Urine Dipstick-Ancillary; Complete Time: 07:51 [facility] 01/17 00:56 Order name: EKG; Complete Time: 00:57 [facility] 01/17 00:56 Order name: Cardiac monitoring; Complete Time: 01:37 [facility] 01/17 00:56 Order name: EKG - Nurse/Tech; Complete Time: 01:37 [facility] 01/17 00:56 Order name: IV Saline Lock; Complete Time: 01:36 [facility] 01/17 00:56 Order name: Labs collected and sent; Complete Time: :36 [facility] 01/17 00:56 Order name: O2 Per Protocol; Complete Time: :36 [facility] 01/17 00:56 Order name: O2 Sat Monitoring; Complete Time: 01:36 [facility] 01/17 00:56 Order name: Urine Dipstick-Ancillary (obtain specimen); Complete Time: 04:33 [facility] 01/17 03:12 Order name: Goode; Complete Time: 04:31 [facility] 01/17 03:29 Order name: CONS Physician Consult EDMS EC:13 Rate is 108 beats/min. Rhythm is regular. QRS [place] is Normal. AL interval is normal. [facility] QRS interval is normal. QT interval is normal. No Q waves. No ST changes noted. Clinical impression: Sinus tachycardia. Interpreted by me. Reviewed by me. Administered Medications: 02:25 Drug: Rocephin (cefTRIAXone) 1 grams Route: IV; Rate: per protocol; Site: right aa9 antecubital; 04:32 Follow up: Response: No adverse reaction; IV Status: Completed infusion; IV Intake: [id number] 04:00 Drug: Zofran (Ondansetron) 4 mg Route: IVP; Site: right antecubital; aa9 04:33 Follow up: Response: No adverse reaction aa9 04:10 Drug: morphine 2 mg Route: IVP; Infused Over: 4 mins; Site: right antecubital; aa9 04:33 Follow up: Response: No adverse reaction aa9 04:15 Drug: Nitro-Bid (nitroglycerin) Ointment 2 % 1 inches Route: Transdermal; Site: aa9 anterior chest wall; 04:31 Drug: Potassium Effervescent Tablet 25 mEq Route: PO; aa9 04:33 Follow up: Response: No adverse reaction aa9 04:31 Drug: Lasix (furosemide) 20 mg Route: IVP; Site: left forearm; aa9 04:33 Follow up: Response: No adverse reaction aa9 04:31 Drug: SOLU-Medrol (methylPrednisoLONE) 2 mg/kg Route: IVP; Site: left forearm; aa9 04:33 Follow up: Response: No adverse reaction aa9 04:31 Drug: Xopenex (levalbuterol) 1.25 mg Route: Inhalation; aa9 04:31 Drug: AtroVENT (ipratropium) Aerosol 0.5 mg Route: Inhalation; aa9 04:32 Drug: Potassium Chloride 20 mEq Route: IV; Rate: per protocol; Site: left forearm; aa9 06:17 Follow up: Response: No adverse reaction; IV Status: Completed infusion; IV Intake: aa9 100ml 04:32 Drug: Magnesium Sulfate 1 grams Route: IVPB; Infused Over: 1 hrs; Site: right aa9 antecubital; 04:51 Follow up: Response: No adverse reaction; IV Status: Completed infusion; IV Intake: aa9 100ml 04:51 Drug: Zosyn (piperacillin-tazobactam) 3.375 grams Route: IVPB; Infused Over: 60 mins; aa9 Site: right antecubital; 06:17 Follow up: Response: No adverse reaction; IV Status: Completed infusion; IV Intake: aa9 100ml 06:17 Drug: NS 0.9% with KCl 20 mEq/L 1000 ml Route: IV; Rate: 125 ml/hr; Site: left forearm; aa9 Disposition Summary: 01/17/22 03:21 Hospitalization Ordered Hospitalization Status: Inpatient Admission sandro Provider: Brandon Ceballos cha Condition: Fair sandro Problem: new sandro Symptoms: have improved sandro Bed/Room Type: Standard sandro Location: Telemetry/MedSurg (Inpatient)(01/17/22 07:23) sandro Room Assignment: [facility](01/17/22 07:23) sandro Diagnosis - Dyspnea sandro - Hypoxemia sandro - Hypo-osmolality and hyponatremia sandro - Hypomagnesemia sandro - Hypokalemia sandro - Anemia, unspecified sandro - Elevated white blood cell count sandro Forms: - Medication Reconciliation Form sandro - SBAR form sandro Signatures: Dispatcher [employer] Ron Villatoro MD MD cha Ballard, Brenda RN Malinda Padilla RN RN cg Avalos, Aylin, RN RN aa9 Corrections: (The following items were deleted from the chart) 03:32 03:21 Telemetry/MedSurg (Inpatient) sandro cg 03:32 03:21 sandro cg 07:23 03:32 [facility] ER HOLD cg sandro 07:23 03:32 ERHOLD- cg sandro
--- NOTE | 2022-01-17 03:22 | ER ---
Nurse's Notes [facility] Name: Daisy Valdes Age: 81 yrs Sex: Female : 1940 Arrival Date: 01/17/2022 Time: 00:42 Bed 2 Private MD: Diagnosis: Dyspnea;Hypoxemia;Hypo-osmolality and hyponatremia;Hypomagnesemia;Hypokalemia;Anemia, unspecified;Elevated white blood cell count Presentation: 01/17 01:00 Chief complaint: EMS states: they were toned out for a lift assist pt had gone to the bathroom with her walker but once there was too weak to get back and spouse assisted her to the ground then pt was too weak to get up and EMS was called. Coronavirus screen: Client presents with at least one sign or symptom that may indicate coronavirus-19. Ebola Screen: No symptoms or risks identified at this time. Initial Sepsis Screen: Does the patient meet any 2 criteria? RR > 20 per min. HR > 90 bpm. Yes Does the patient have a suspected source of infection? Yes: Productive cough/pneumonia If YES to both, name of provider notified: Ron Dobbs MD. Risk Assessment: Do you want to hurt yourself or someone else? Patient reports no desire to harm self or others. Onset of symptoms was January 17, 2022. 01:00 Method Of Arrival: EMS 01:00 Acuity: YANNICK 2 bb Triage Assessment: 01:15 General: Appears distressed, uncomfortable, Behavior is cooperative, anxious. Pain: bb Complains of pain in back. Neuro: Level of Consciousness is awake, alert, obeys commands, Oriented to person, place, time, situation. Cardiovascular: Capillary refill < 3 seconds Patient's skin is warm and dry. Rhythm is sinus tachycardia. Cardiovascular: Edema is 2+ to left ankle and right ankle. Respiratory: Respiratory effort is labored, Respiratory pattern is tachypnea Breath sounds are coarse bilaterally. GI: No signs and/or symptoms were reported involving the gastrointestinal system. Derm: Skin is fragile, is thin, Skin is dry, Skin is pink, Skin temperature is warm. Musculoskeletal: Circulation, motion, and sensation intact. Historical: - Allergies: 01:15 No Known Allergies; bb - PMHx: 01:15 Hypertension; Osteoporosis; Chronic back pain; bb - Immunization history:: Pfizer x 3. - Social history:: Smoking status: Patient denies any tobacco usage or history of. - Family history:: not pertinent. Screenin:18 Abuse screen: Denies threats or abuse. Nutritional screening: No deficits noted. bb Tuberculosis screening: No symptoms or risk factors identified. Fall Risk Fall in past 12 months (25 points). Secondary diagnosis (15 points) impaired mobility, IV access (20 points). Ambulatory Aid- Crutches/Cane/Walker (15 pts). Gait- Impaired (20 pts.). Mental Status- Oriented to own ability (0 pts). Total Morejon Fall Scale indicates High Risk Score (45 or more points). Fall prevention measures have been instituted. Side Rails Up X 2 Family Present and informed to notify staff if the need to leave the bedside As available patient and family educated on Fall Prevention Program and Strategies. Assessment: 01:18 Reassessment: see triage assessment. bb 03:00 General: Appears uncomfortable, slender, Behavior is cooperative, appropriate for age, aa9 anxious. 03:00 Pain: Complains of pain in back Noted to be grimacing, moaning. Neuro: Level of aa9 Consciousness is awake, alert, obeys commands, Oriented to person, place, time, situation. Respiratory: Airway is patent Respiratory effort is even, labored, gasping. GI: No signs and/or symptoms were reported involving the gastrointestinal system. : No signs and/or symptoms were reported regarding the genitourinary system. Derm: Skin with poor turgor. 04:00 Respiratory: Patient placed on BiPAP: Inspiratory Pressure: 14 Expiratory (EPAP) aa9 Pressure: 7 FiO2%: 30 Respiratory Rate: 16. Vital Signs: 01:00 BP 139 / 59; Pulse 112; Resp 28 S; Temp 97.5(A); Pulse Ox 91% on R/A; Weight 42.18 kg bb (R); Height 5 ft. 5 in. (165.10 cm) (R); 01:18 Pulse Ox 96% on 4 lpm NC; bb 02:15 BP 126 / 82; Pulse 118; Resp 28; Pulse Ox 100% on R/A; aa9 02:45 BP 128 / 69; Pulse 124; Resp 30; Pulse Ox 100% on R/A; aa9 03:45 BP 119 / 73; Pulse 127; Resp 37; Pulse Ox 100% on R/A; aa9 04:00 BP 131 / 76; Pulse 119; Resp 26; Pulse Ox 100% on BiPAP; aa9 04:15 BP 141 / 91; Pulse 125; Resp 30; Pulse Ox 100% on BiPAP; aa9 01:00 Body Mass Index 15.48 (42.18 kg, 165.10 cm) bb ED Course: 00:42 Patient arrived in ED. bp1 00:54 Ron Dobbs MD is Attending Physician. sandro 01:13 Miriam aMe, NORTH is Primary Nurse. bb 01:15 Triage completed. bb 01:15 Arm band placed on Patient placed in an exam room, on a stretcher, on oxygen, on bb bus monitor, on pulse oximetry. EKG completed in triage. Results shown to MD. Family accompanied patient. 01:18 Patient has correct armband on for positive identification. Placed in gown. Bed in low bb position. Call light in reach. Side rails up X2. Adult w/ patient. traffic monitor specialist on. Pulse ox on. NIBP on. Warm blanket given. 01:30 Maintain EMS IV. Dressing intact. Good blood return noted. Site clean \\T\\ dry. Gauge \\T\\ aa 9 site: 20 G R AC. 01:36 Basic Metabolic Panel Sent. aa9 01:36 CBC with Diff Sent. aa9 01:36 LFT's Sent. aa9 01:36 Magnesium Sent. aa9 01:37 NT PRO-BNP Sent. aa9 01:37 PT-INR Sent. aa9 01:37 Troponin HS Sent. aa9 01:37 COVID-19/FLU A+B (Document "Date of Onset" if Symptomatic) Sent. aa9 01:37 Lactate Sent. aa9 01:37 Blood Culture Adult (2) Sent. aa9 01:57 XRAY Chest (1 view) In Process Unspecified. EDMS 02:25 Blood Culture Adult (2) Sent. aa9 03:19 Brandon Ceballos MD is Hospitalizing Provider. sandro 04:29 No provider procedures requiring assistance completed. Inserted saline lock: 20 gauge aa9 in left forearm, using aseptic technique. Maintain EMS IV. Dressing intact. Good blood return noted. Site clean \\T\\ dry. Gauge \\T\\ site: 20 G R AC. 04:30 Goode cath inserted, using sterile technique, 16 Fr., by co, balloon inflated, to aa9 gravity drainage, urine specimen collected. returned irma urine. Patient tolerated well. 04:41 Adult w/ patient. Client placed on continuous cardiac and pulse oximetry monitoring. aa9 NIBP monitoring applied. Lights dimmed. Warm blanket given. 04:41 Patient admitted, IV remains in place. aa9 04:48 Urine Microscopic Only Sent. aa9 08:24 Primary Nurse role handed off by Miriam Mae RN eb Administered Medications: 02:25 Drug: Rocephin (cefTRIAXone) 1 grams Route: IV; Rate: per protocol; Site: right aa9 antecubital; 04:32 Follow up: Response: No adverse reaction; IV Status: Completed infusion; IV Intake: [id number] 04:00 Drug: Zofran (Ondansetron) 4 mg Route: IVP; Site: right antecubital; aa9 04:33 Follow up: Response: No adverse reaction aa9 04:10 Drug: morphine 2 mg Route: IVP; Infused Over: 4 mins; Site: right antecubital; aa9 04:33 Follow up: Response: No adverse reaction aa9 04:15 Drug: Nitro-Bid (nitroglycerin) Ointment 2 % 1 inches Route: Transdermal; Site: aa9 anterior chest wall; 04:31 Drug: Potassium Effervescent Tablet 25 mEq Route: PO; aa9 04:33 Follow up: Response: No adverse reaction aa9 04:31 Drug: Lasix (furosemide) 20 mg Route: IVP; Site: left forearm; aa9 04:33 Follow up: Response: No adverse reaction aa9 04:31 Drug: SOLU-Medrol (methylPrednisoLONE) 2 mg/kg Route: IVP; Site: left forearm; aa9 04:33 Follow up: Response: No adverse reaction aa9 04:31 Drug: Xopenex (levalbuterol) 1.25 mg Route: Inhalation; aa9 04:31 Drug: AtroVENT (ipratropium) Aerosol 0.5 mg Route: Inhalation; aa9 04:32 Drug: Potassium Chloride 20 mEq Route: IV; Rate: per protocol; Site: left forearm; aa9 06:17 Follow up: Response: No adverse reaction; IV Status: Completed infusion; IV Intake: aa9 100ml 04:32 Drug: Magnesium Sulfate 1 grams Route: IVPB; Infused Over: 1 hrs; Site: right aa9 antecubital; 04:51 Follow up: Response: No adverse reaction; IV Status: Completed infusion; IV Intake: aa9 100ml 04:51 Drug: Zosyn (piperacillin-tazobactam) 3.375 grams Route: IVPB; Infused Over: 60 mins; aa9 Site: right antecubital; 06:17 Follow up: Response: No adverse reaction; IV Status: Completed infusion; IV Intake: aa9 100ml 06:17 Drug: NS 0.9% with KCl 20 mEq/L 1000 ml Route: IV; Rate: 125 ml/hr; Site: left forearm; aa9 Medication: 04:30 VIS not applicable for this client. aa9 Intake: 04:32 IV: 10ml; Total: 10ml. aa9 04:51 IV: 100ml; Total: 110ml. aa9 06:17 IV: 100ml; Total: 210ml. aa9 06:17 IV: 100ml; Total: 310ml. aa9 Outcome: 03:21 Decision to Hospitalize by Provider. sandro 04:41 Admitted to ER Hold. Please see [facility] for further documentation. aa9 04:41 Condition: stable 04:41 Instructed on the need for admit. 08:21 Admitted to Med/surg accompanied by tech, via stretcher, room 213, with oxygen, with bp chart, Report called to STACY KAT 09:47 Patient left the ED. aa5 Signatures: Dispatcher [employer] EDMS Ron Dobbs MD MD cha Ballard, Brenda, RN RN Yudelka Rock RN RN aa5 Andrew Giang, Audrey Hunter RN, Brittany bp1 Avalos, Aylin, NORTH RN aa9 Corrections: (The following items were deleted from the chart) 04:32 04:31 Magnesium Sulfate 1 grams IVPB in left forearm over 1 hrs aa9 aa9 04:42 04:29 Inserted saline lock: 20 gauge in right forearm, using aseptic technique. aa9 Maintain EMS IV. Dressing intact. Good blood return noted. Site clean \\T\\ dry. Gauge \\T\\ site: 20 G R AC. aa9
[2022-01-17] MEDS ORDERED: NITROGLYCERIN 1 GM PKT TD ONE (03:31)
[2022-01-17] MEDS ORDERED: FUROSEMIDE 20 MG/ 2ML VIAL ONE (03:31)
[2022-01-17] MEDS ORDERED: POTASSIUM 25 MEQ EFFERV TAB ONE (03:32)
[2022-01-17] MEDS ORDERED: LEVALBUTEROL 1.25 MG/3 ML NEB ONE (03:32)
[2022-01-17] MEDS ORDERED: METHYLPREDNISOLONE 40 MG INJ ONE (03:32)
[2022-01-17] MEDS ORDERED: NS KCL 20MEQ 1,000 ML IV ONE (03:32)
[2022-01-17] MEDS ORDERED: ONDANSETRON 4 MG/2 ML VIAL ONE (03:32)
[2022-01-17] MEDS ORDERED: IPRATROPIUM BROM 0.5MG/2.5ML ONE (03:32)
[2022-01-17] MEDS ORDERED: KCL 20 MEQ/100 mL IVPB 100 ML IV ONE (03:33)
[2022-01-17] MEDS ORDERED: NA CHLORIDE 0.9% 100 ML IV ONE (03:33)
[2022-01-17] MEDS ORDERED: PIPERACIL/TAZO 3.375 GM VIAL IV ONE (03:33)
[2022-01-17] MEDS ORDERED: MAGNESIUM SULFATE 1 gm IVPB 1 GM/100 ML BAG IV ONE (03:33)
[2022-01-17] MEDS ORDERED: MORPHINE 2 MG/ML SYR ONE (03:35)
[2022-01-17 03:57] LABS: Blood Gas Oxyhemoglobin 95.2 % (94-97); Blood O2 Saturation 97.6 % (92-98.5)
[2022-01-17 04:30] LABS: Urine Blood Negative (Negative); Urine Glucose Negative (Negative); Urine Protein 3+ (Negative); Urine Specific Gravity 1.025 (1.005-1.030)
[2022-01-17 05:21] LABS: Urine Bacteria <20 /HPF (<20); Urine Mucus Slight /HPF (None Seen); Urine RBC <5 /HPF (None Seen)
[2022-01-17] MEDS ORDERED: ALBUTEROL 2.5 MG/3 ML NEB SOL NEB PRN (05:29)
[2022-01-17] MEDS ORDERED: ACETAMINOPHEN 500 MG TAB PO PRN (05:29)
[2022-01-17] MEDS ORDERED: IPRATROPIUM BROM 0.5MG/2.5ML NEB PRN (05:29)
[2022-01-17] MEDS ORDERED: NA CHLORIDE 0.9% 1,000 ML IV SCH ×2 (05:29→15:52)
[2022-01-17] MEDS ORDERED: ONDANSETRON 4 MG/2 ML VIAL IV PRN (05:29)
[2022-01-17] MEDS ORDERED: MORPHINE 4 MG/ML SYR IV PRN (05:29)
[2022-01-17] MEDS ORDERED: FUROSEMIDE 20 MG/ 2ML VIAL IV SCH (09:00)
[2022-01-17] MEDS ORDERED: METHYLPREDNISOLONE 40 MG INJ IV SCH (09:00)
[2022-01-17] MEDS: PIPER TAZO 3.375 GM in NA CHLORIDE 0.9% 100 ML IV SCH ×2 (11:02→16:55)
[2022-01-17] MEDS: NITROGLYCERIN 1 GM PKT TD SCH ×2 (11:02→16:55)
[2022-01-17] MEDS: SODIUM BICARB 325 MG TAB PO SCH ×2 (11:04→21:24)
[2022-01-17 14:45] LABS: Potassium 3.6 mmol/L (3.5-5.1)
[2022-01-17] MEDS ORDERED: ENOXAPARIN 30 MG/0.3 ML SQ SCH (17:00)
[2022-01-17] MEDS ORDERED: DIGOXIN 0.25 MG/ML AMP IV ONE (19:00)
[2022-01-17] MEDS ORDERED: METOPROLOL TAR 25 MG TAB PO SCH (21:00)
[2022-01-17] MEDS ORDERED: LOSARTAN POTASSIUM 50 MG TABLET PO SCH (21:00)
[2022-01-17] MEDS: METOPROLOL TAR 50 MG TAB PO SCH (21:24)
[2022-01-17] MEDS: ATORVASTATIN 10 MG TAB PO SCH (21:24)
--- NOTE | 2022-01-17 22:42 | HP ---
Date of Admission: 01/17/2022 Chief Complaint: Weakness. History Of Present Illness: This is an 81-year-old very pleasant female patient, who lives at home with her , has been having poor appetite lately and last few days, she really did not eat or drink much as described by the patient's . Three days ago, she had 2 or 3 loose bowel movement without any abdominal pain, fever, chills, nausea, or vomiting. Last night around 11 o'clock or so, the patient's was assisting her to go to the bathroom and she sat down on the commode and she was feeling very weak that she could not get up, so tried to help her and after taking 2 to 3 steps, she could no longer stand or walk with assistance, so had to put her on the floor, so she did not have any fall or injury and after getting her on the floor, he was not able to get her back up, so he called ambulance and she was brought into emergency room. After she arrived in the emergency room, she was evaluated. The patient was in acute respiratory distress with acute respiratory failure and she was given BiPAP therapy, oxygen replacement therapy. Empiric antibiotics were started for elevated white count and she was admitted to the hospital. When I saw her, she had just arrived to the floor and respiratory therapist was able to successfully wean off the BiPAP and was placed on nasal cannula oxygen, but apparently it was not turned on, so the patient was still on room air oxygen maintaining oxygen saturation anywhere between 96% to 98% when I saw her. Her was present with her at bedside. Allergies: NO KNOWN ALLERGIES. Medications: Atorvastatin 10 mg daily, Tylenol with codeine #3 one tablet 3 times a day as needed for back pain or joint pain, amlodipine 2.5 mg daily, Caltrate plus D 1 tablet 2 times a day, levocetirizine 5 mg daily as needed for allergies, levothyroxine 100 mcg daily, Metamucil fiber gummies takes 3 fiber gummies daily, metoprolol tartrate 25 mg 2 times a day, losartan 100 mg daily, sodium chloride 1000 mg 3 times a day, Bactrim 80/400 mg 1 tablet by mouth daily for prevention of recurrent urinary tract infection and she has done very well on it for last few years, and tizanidine 4 mg daily at bedtime. Review of Systems: Musculoskeletal: Chronic back pain and joint pain. Constitutional: Generalized weakness. Respiratory: Shortness of breath. All other systems reviewed and negative. Past Medical History: Significant for hypothyroidism, impaired fasting glucose, hyponatremia, hypertension, hyperlipidemia, diverticulosis, osteoarthritis at multiple sites, anemia, myelodysplastic syndrome, and osteoporosis. Past Surgical History: Cataract surgery, cholecystectomy, hysterectomy, and back surgery. Family History: Father , had hypertension and stroke. Mother , had cancer of the gallbladder. Sister , had pancreatic cancer and hypertension. Social History: Negative for smoking and alcohol use. Physical Examination: Vital Signs: Upon arrival to the emergency room, temperature 97.5, pulse 112, respiratory rate 28, blood pressure 139/59, and oxygen saturation was 91%. Height 5 feet 5 inches. Weight 92 pounds. General: The patient appears awake, alert, not in any respiratory distress, appears weaker than normal. HEENT: Head atraumatic, normocephalic. Conjunctivae nonerythematous. Sclerae white. Mouth, no thrush or edema noted. Ears/Nose, no mass, lesion, discharge noted. Neck: Supple. No JVD, lymph nodes, bruit, thyromegaly noted. Lungs: Bilateral good equal air entry. Clear to auscultation. No rhonchi. No rales. Heart: Normal heart sounds, no murmur or gallop. Abdomen: Soft, bowel sounds normal. No guarding, rigidity, tenderness, mass, hepatosplenomegaly, distention, or bruit noted. Extremities: Bilateral trace leg edema. Skin: No rash, ulcer, cellulitis. Lymphatics: No lymph node enlargement in neck, supraclavicular, infraclavicular region. Neuro: No focal neurological deficit. Chest: Unremarkable. External Genitalia: Deferred. Rectal: Deferred. Musculoskeletal: The patient has severe kyphosis. Skin: Left inner buttock has stage I decubitus. Laboratory Data: White count 14.6, hemoglobin 11.6, and platelets 132. Blood gas; pH 7.43, pCO2 of 37.1, PO2 of 106, oxygen saturation 97.6% on 35% FiO2. Sodium 123, potassium 2.7, chloride 86, bicarb 27, BUN 19, creatinine 0.56, glucose 144, lactic acid 1.7, and magnesium 1.6. Liver function tests unremarkable. ProBNP 579. Troponin 56.6. Lipase 52. Urinalysis; 2+ ketones, otherwise negative. Urine osmolality 472, urine sodium 43, 3+ protein in the urine. Influenza A and B test and COVID 19 test was negative. Impression: 1. Acute respiratory failure with hypoxia. 2. Hyponatremia. 3. Hypokalemia. 4. Hypomagnesemia. 5. Anemia. 6. Thrombocytopenia. 7. Hypothyroidism. 8. Impaired fasting glucose. 9. Hypertension. 10. Hyperlipidemia. 11. Diverticulosis. 12. Osteoarthritis, multiple sites. 13. Osteoporosis. Plan: We will go ahead and admit the patient to hospital for further evaluation and management of this problem. The patient is appropriate for inpatient and is expected to spend 2 midnights in hospital. We will continue home medications per order. DVT prophylaxis will be given per order. We will continue antihypertensive medication as per order. Hold if systolic blood pressure less than 120 or 130 depending on certain medications parameters as per order. We will continue cholesterol medication and atorvastatin at bedtime. Replace magnesium and potassium per order. We will repeat blood work tomorrow morning. Anemia and thrombocytopenia will not require any further intervention except monitoring at this time. WBC count is elevated. There is possibility of pneumonia. We will go ahead and give empiric antibiotics Zosyn at this time. No evidence of urinary tract infection. Air mattress was ordered for decubitus and we will go ahead and consult Dr. Lim either over the weekend or on Wednesday for decubitus care. The patient was advised to use nutritional supplement like Ensure. We will go ahead and continue current IV fluid. Repeat electrolytes later today and tomorrow. The patient was prescribed sodium chloride on outpatient basis. We will change it to sodium bicarbonate to see whether that makes any difference with her hyponatremia problem or not, which is a chronic problem, but her sodium level is lower than what it is normally on outpatient basis. The patient has significant generalized weakness and debility to the extent that she requires lot of care at home and with time as her condition deteriorates, she is expected to need more help at home and at home she lives with her and unfortunately he is not going to be able to continue to provide care to her, so we did have a long discussion regarding placement and [facility]pc facility placement was suggested. The patient and her will discuss this over the weekend and I will have Social Service assist her with placement if she decides to do so. I also discussed with the patient in presence of nurse as well as the patient's regarding advance directives and in the event of cardiopulmonary arrest, the patient wants God and nature take its course, and keep her comfortable and does not want any aggressive measures like CPR, defibrillation, or ventilator support, so DNR order will be written in the chart as well. GAYLE/KESHAWN Voice ID: [id number]
[2022-01-18] MEDS: PIPER TAZO 3.375 GM in NA CHLORIDE 0.9% 100 ML IV SCH ×3 (01:39→17:39)
[2022-01-18] MEDS: NITROGLYCERIN 1 GM PKT TD SCH ×3 (01:40→17:39)
[2022-01-18 05:55] LABS: Absolute Lymphocytes (CBC) 0.5 K/uL (0.7-4.9); Hematocrit 23.2 % (36.0-45.0); Lymphocytes % 4.3 % (15.3-44.8); MCV 93.6 fL (80-100); MPV 7.4 fL (7.6-11.3); RBC Red Blood Cell Count 2.48 M/uL (3.86-4.86)
[2022-01-18 06:24] LABS: Magnesium 1.8 mg/dL (1.8-2.4); Potassium 3.4 mmol/L (3.5-5.1)
[2022-01-18 06:25] LABS: Thyroid Stimulating Hormone 5.05 uIU/mL (0.360-3.740)
[2022-01-18] MEDS: METOPROLOL TAR 50 MG TAB PO SCH ×2 (09:00→21:48)
[2022-01-18] MEDS: AMLODIPINE 2.5 MG TAB PO SCH (09:00)
[2022-01-18] MEDS: APIXABAN 2.5 MG TABLET PO SCH ×2 (09:15→21:46)
[2022-01-18] MEDS: SODIUM BICARB 325 MG TAB PO SCH ×2 (09:15→21:46)
[2022-01-18] MEDS: CODEINE 30MG/APAP 300MG TAB PO PRN ×2 (09:15→21:46)
--- NOTE | 2022-01-18 10:45 | PN ---
Date of Progress Note: 01/18/2022 Subjective: The patient was seen this morning for followup. She was sleeping on nasal cannula oxyge n. Her was with her at bedside. reported that overall patient looks better compared to yesterday. No new complaints or problems reported. The patient remains on air mattress. Objective: Vital Signs: Reviewed. HEENT: Unremarkable. Lungs: Clear to auscultation. Heart: Sounds normal. Abdomen: Soft. Bowel sounds normal. No guarding, rigidity, tenderness, distention. Extremity: No leg edema. Laboratory Data: White count 11.4, hemoglobin 7.9, platelets 156. Sodium 130, potassium 3.4, chlori de 96, bicarb 30, BUN 14, creatinine 0.32, glucose 105, magnesium 1.8. TSH 5.05. Triglycerides 58. Impression: 1.Hyponatremia. 2.Rule out sepsis. 3.Hypokalemia. 4.Anemia. 5.Hypertension. 6.Hypothyroidism. 7.Generalized weakness. 8.Debility. 9.Right buttock decubitus ulcers. Plan: Details were discussed with Dr. Lim from General Surgery and he was requested to evaluate th e patient for decubitus care. We will continue air mattress. Continue to offload the patient's heel s. When I saw her today, her heels were not offloaded and I did put them in right position and offlo aded both heels, and nursing staff to follow up on this. We will go ahead and discontinue IV fluid, give 1 unit of PRBC blood transfusion. Blood culture preliminary report 1 bottle is growing gram-pos itive cocci. We will follow up on definite identification and sensitivity results. She is currently on Zosyn, we will continue that. There is a good possibility this blood culture could be false-posi tive like a skin contamination, but we will have to wait for the final report. All these details wer e discussed with the patient's . Yesterday, the patient went into atrial fibrillation with ra pid ventricular rate. One dose of digoxin was ordered and metoprolol was increased from 25 mg 2 time s a day up to 50 mg 2 times a day and Cardiology consulted and echocardiogram was ordered. Social Se rvice to assist the patient with correction facility placement and possible discharge early as w ill be day after tomorrow depending on her condition. GAYLE/MODL Voice ID: [id number] Report ID: [id number]
--- NOTE | 2022-01-18 11:15 | CON ---
Date of Consultation: 01/18/2022 Reason For Consultation: Sacral decubitus. History Of Present Illness: The patient is an 81-year-old female, who was admitted yesterday with mehul bear and on evaluation by Dr. Self was found to have a sacral decubitus. She has very thin and fernandez s very little subcutaneous tissue. The patient was found to have acute respiratory distress with karlos lure and was treated with BiPAP and oxygen after being admitted and I was asked to evaluate the patie nt. The patient is awake, alert. Has no purulent discharge, no fever or chills in that area. No so re throat, runny nose, cough, headaches, or dizziness. No chest pain. Review of Systems: Otherwise unremarkable. Past Medical History: Significant for hypothyroidism, hyponatremia, hypertension, hyperlipidemia, my eloblastic syndrome, osteoporosis. Past Surgical History: Cataract surgery, cholecystectomy, hysterectomy, and back surgery. Allergies: NO ALLERGIES. Social History: The patient does not smoke or drink alcohol. Family History: Significant for hypertension, stroke, and pancreatic cancer in her sister. Physical Examination: Vital Signs: Stable, afebrile. General: Awake, alert, oriented x3. Head and Neck: No masses. Chest: Clear. Heart: S1, S2. Abdomen: Soft. Extremity: Neurovascularly intact. Neuro: Nonfocal. Sacral Examination: Revealed the patient just had a bowel movement, so I was not able to exam it mikayla rosa, but I could see the stage I decubitus just above on the sacrum in the midline approximately 4 x 2 cm with minimal erythema, but no open epidermis because of bony prominence. She is at high risk f or sacral decubitus. Assessment: Sacral decubitus, likely stage I at this time. Recommendations: Nutritional optimization, offloading, air mattress, foam dressing, and the patient can follow [facility]. /MODL Voice ID: [id number] Report ID: [id number]
[2022-01-18] MEDS ORDERED: NA CHLORIDE 0.9% 250 ML ONE (15:14)
[2022-01-18 19:50] LABS: Hematocrit 25.8 % (36.0-45.0)
[2022-01-18] MEDS ORDERED: POTASSIUM CL SA 10 MEQ TAB PO ONE (21:00)
[2022-01-18] MEDS: BRINZOLAMIDE OPTH SCH (21:00)
[2022-01-18] MEDS: ATORVASTATIN 10 MG TAB PO SCH (21:46)
[2022-01-18] MEDS ORDERED: INFLUENZA VACCINE (for 6+ mo) 0.5 ML DOSE IMVAC ONE (22:00)
[2022-01-19] MEDS: PIPER TAZO 3.375 GM in NA CHLORIDE 0.9% 100 ML IV SCH ×3 (02:22→17:50)
[2022-01-19] MEDS: NITROGLYCERIN 1 GM PKT TD SCH ×3 (02:22→17:49)
[2022-01-19 04:33] LABS: Absolute Lymphocytes (CBC) 0.5 K/uL (0.7-4.9); Hematocrit 23.8 % (36.0-45.0); Lymphocytes % 4.9 % (15.3-44.8); MCV 92.5 fL (80-100); MPV 8.1 fL (7.6-11.3); RBC Red Blood Cell Count 2.58 M/uL (3.86-4.86)
[2022-01-19 04:43] LABS: Magnesium 1.8 mg/dL (1.8-2.4)
[2022-01-19] MEDS: LEVOTHYROXINE SOD 0.1 MG TAB PO SCH (06:25)
[2022-01-19] MEDS: BRINZOLAMIDE OPTH SCH ×2 (09:00→21:00)
[2022-01-19] MEDS: METOPROLOL TAR 50 MG TAB PO SCH (09:00)
[2022-01-19] MEDS: TIMOLOL 0.5% OPTH SCH (09:00)
[2022-01-19] MEDS ORDERED: ALBUTEROL 2.5 MG/3 ML NEB SOL NEB PRN (09:00)
[2022-01-19] MEDS: OPTH OPTH SCH (09:00)
[2022-01-19] MEDS ORDERED: IPRATROPIUM BROM 0.5MG/2.5ML NEB PRN (09:00)
[2022-01-19] MEDS ORDERED: MAGNESIUM SULFATE 1 gm IVPB 1 GM/100 ML BAG IV ONE (09:00)
[2022-01-19] MEDS: APIXABAN 2.5 MG TABLET PO SCH (10:31)
[2022-01-19] MEDS: AMLODIPINE 2.5 MG TAB PO SCH (10:31)
[2022-01-19] MEDS: SODIUM BICARB 325 MG TAB PO SCH ×2 (10:31→21:20)
--- NOTE | 2022-01-19 10:52 | RAD REPORT ---
EXAM DESCRIPTION: RAD - Chest Single View - 01/17/2022 1:56 am CLINICAL HISTORY: 81 years, Female, Cough COMPARISON: None FINDINGS: Single view of the chest was obtained portable. No prior films are available for compariso n, only report is available. The lung volume is decreased. The patient is rotated towards the right. There is marked kyphosis and vertebroplasty. The heart is not enlarged. The thoracic aorta demonstrat e questionable intimal calcification. No significant pleural effusions/or focal areas of consolidatio n. The rest of the soft tissue and bony structures demonstrate to be unremarkable. IMPRESSION: Decreased lung volume. No significant pleural effusions/or focal areas of consolidation. Electronically signed by: Federico Andrew MD 01/17/2022 2:50 AM GENERAL LABORER Due to temporary technical issues with the PACS/Fluency reporting system, reports are being signed by the in house radiologists without review as a courtesy to insure prompt reporting. The interpreting radiologist is fully responsible for the content of the report.
--- NOTE | 2022-01-19 12:00 | RAD REPORT ---
EXAM DESCRIPTION: RAD - Hip Bilateral With Pelvis - 01/19/2022 11:31 am CLINICAL HISTORY: Hip pain FINDINGS: A markedly displaced intertrochanteric fracture left femur. Fracture involves the greater trochanter. The lesser trochanter may also be involved Marked angulation present at fracture site. No dislocation Dr Ceballos notified
--- NOTE | 2022-01-19 12:49 | RAD REPORT ---
EXAM DESCRIPTION: RAD - Chest Single View - 01/18/2022 6:43 am CLINICAL HISTORY: Chest Pain. COMPARISON: Chest radiograph from one day prior. TECHNIQUE: Single view AP chest radiograph(s). FINDINGS: Slightly low lung volumes. Slightly rotated radiograph. Similar appearance of mild diffuse pulmonary interstitial thickening. No definite infiltrate identified. No pleural effusion. No pneumo thorax. Nonenlarged cardiomediastinal silhouette. Prominent calcific atherosclerosis in the carotid b ulb. Osteopenia. Vertebroplasty cement in the mid thoracic spine. IMPRESSION: No acute cardiopulmonary abnormality identified by radiograph. Chronic findings. Electronically signed by: Abril Gutierrez MD 01/18/2022 9:02 PM [employer]ER Due to temporary technical issues with the PACS/Fluency reporting system, reports are being signed by the in house radiologists without review as a courtesy to insure prompt reporting. The interpreting radiologist is fully responsible for the content of the report.
[2022-01-19] MEDS: FUROSEMIDE 20 MG/ 2ML VIAL IV SCH (13:59)
--- NOTE | 2022-01-19 14:35 | ECHO ---
HEIGHT: 5 ft 5 in WEIGHT: 92 lb 2 oz DATE OF STUDY: 01/19/[address]: Christopher Ceballos MD 2-DIMENSIONAL: YES M.MODE: YES DOPPLER: YES COLOR FLOW: YES TDS: NO PORTABLE: YES DEFINITY: NO BUBBLE STUDY: NO DIAGNOSIS: ATRIAL FIBRILLATION CARDIAC HISTORY: CATHERIZATION: NO SURGERY: NO PROSTHETIC VALVE: NO PACEMAKER: NO MEASUREMENTS (cm) DIASTOLIC (NORMALS) SYSTOLIC (NORMALS) IVSd 1.0 (0.6-1.2) LA Diam 3.0 (1.9-4.0) LVEF 71% LVIDd 3.1 (3.5-5.7) LVIDs 1.9 (2.0-3.5) %FS 39% LVPWd 1.1 (0.6-1.2) Ao Diam 2.7 (2.0-3.7) 2 DIMENSIONAL ASSESSMENT: RIGHT ATRIUM: NORMAL LEFT ATRIUM: NORMAL RIGHT VENTRICLE: NORMAL LEFT VENTRICLE: NORMAL TRICUSPID VALVE: MODERATE TRICUSPID REGURGITATION MITRAL VALVE: MILD MITRAL REGURGITATION WITH MITRAL ANNULAR CLACIFICATION PULMONIC VALVE: MILD PULMONARY INSUFFICIENCY AORTIC VALVE: NORMAL PERICARDIAL EFFUSION: NONE AORTIC ROOT: NORMAL LEFT VENTRICULAR WALL MOTION: NORMAL. DOPPLER/COLOR FLOW: SEE BELOW. COMMENTS: 1. CELIA LEFT VENTRICULAR EJECTION FRACTION. 2. NORMAL WALL MOTION. 3. MITRAL ANNULAR CALCIFICATION WITH MILD MITRAL REGURGITATION 4. MODERATE TRICUSPID REGURGITATION/ MILD PULMONIC INSUFFICIENCY 5. SEVERE PULMONARY HYPERTENSION WITH RIGHT VENTRICULAR SYSTOLIC PRESSURE GREATER THAN 70mmHg TECHNOLOGIST: MOMO BARGER
--- NOTE | 2022-01-19 14:36 | CON ---
Date of Consultation: 01/18/2022 Reason For Consultation: AFib. History Of Present Illness: An 81-year-old female, who was admitted to the hospital for an infection . Apparently while in the hospital, she had an episode of atrial fibrillation with rapid ventricular response, evaluated by bedside, and she declines having any chest pain or shortness of breath or pal pitations. There is no nausea, vomiting, diarrhea, or abdominal pain. No dysuria, polyuria, or urin arnoldo urgency. No skin rash, headache. All other systems were reviewed and they were negative. Past Medical History: As outlined above. Medications: Refer to reconciliation sheet for detailed list. Allergies: NO KNOWN DRUG ALLERGIES. Family History: No premature coronary artery disease or cancer. Social History: She does not smoke or drink. Does not use any drugs. Review of Systems: All systems reviewed and they were negative except what mentioned in HPI. Physical Examination: Vital Signs: Reviewed. Head and Neck: Pupils are equal, reactive to light. Intact eye movements. No JVD. No cervical lym phadenopathy. Neck is supple. Thyroid is not enlarged. Lungs: Clear to auscultation bilaterally. No rhonchi, wheezing, or crackles. No accessory muscle u se. Heart: Irregularly irregular. No extra sounds. Abdomen: Soft, nontender. Bowel sounds positive. No organomegaly. No masses or hernia. No rigidi ty or rebound. Extremities: No edema, clubbing, or cyanosis. Intact pulses. Skin: No rash. Neurologic: Alert, awake, oriented x3. No acute focal deficits appreciated. Investigations: Labs were reviewed. Assessment And Recommendations: 1.Atrial fibrillation with rapid ventricular response. Agree with beta-rakesh and heart rate is st ill not well controlled. Recommend to start sotalol 80 mg twice a day and use metoprolol IV for rate control and continue Eliquis. 2.Dyslipidemia, on statin. Continue current management. SR/MODL Voice ID: [id number] Report ID: [id number]
[2022-01-19] MEDS ORDERED: ONDANSETRON 4 MG/2 ML VIAL IV PRN (14:53)
[2022-01-19] MEDS ORDERED: VANCOMYCIN 1 GM in NA CHLORIDE 0.9% 250 ML IVPB ONE (15:00)
[2022-01-19] MEDS: MORPHINE 2 MG/ML SYR IV PRN ×2 (15:07→22:19)
--- NOTE | 2022-01-19 15:12 | EKG ---
Test Date: 2022-01-17 Test Time: 01:08:23 Director Digital Catalogue: TWYLA MEASUREMENT RESULTS: Intervals: Rate: 108 OH: 144 QRSD: 70 QT: 326 QTc: 436 [place]: P: 25 OH: 144 QRS: -4 T: 68 INTERPRETIVE STATEMENTS: Sinus tachycardia Anterior infarct, age undetermined Abnormal ECG Compared to ECG 01/25/2020 20:05:03 Sinus rhythm no longer present Myocardial infarct finding still present Electronically Signed On 01-19-22 15:09:42 NON DESTRUCTIVE EVALUATION SPECIALIST by Pedrito Babcock
--- NOTE | 2022-01-19 15:27 | PN ---
Date of Progress Note: 01/19/2022 Subjective: Seen by bedside. She remains to be in sinus rhythm. On echo, she had a normal ejection fraction, but severe pulmonary hypertension with right ventricle systolic pressure above 70 mmHg. S he denies having any chest pain or known history of cardiac disease. Review of Systems: No chest pain. No nausea, vomiting, diarrhea. No abdominal pain. No dysuria, polyuria, or urinary urgency. She has shortness of breath on exertion. Physical Examination: Vital Signs: Reviewed. Head and Neck: Pupils are equal, reactive to light. Intact eye movements. No JVD. No cervical lym phadenopathy. Neck is supple. Thyroid is not enlarged. Lungs: Clear to auscultation bilaterally. No rhonchi, wheezing, or crackles. No accessory muscle u se. Heart: Irregular. No extra sounds. Abdomen: Soft, nontender. Bowel sounds positive. No organomegaly. No masses or hernia. No rigidi ty or rebound. Extremities: 1 to 2+ pedal edema. No clubbing or cyanosis. Intact pulses. Skin: No rash. Neurologic: Alert, awake, oriented x3. No acute focal deficits appreciated. Investigations: BUN 13, creatinine 0.39. Assessment And Recommendations: 1.Paroxysmal atrial fibrillation, now in sinus rhythm. Discontinue metoprolol and put her on sotalo l 80 mg twice a day. I agree with Danny and monitor EKG with after third dose of sotalol to evalua te the QTc and interval, and adjust further the sotalol dose if needed. 2.Diastolic congestive heart failure and she is fluid overloaded. I will start her on Lasix 20 mg I V q.24 hours. Monitor carefully BUN, creatinine, and electrolytes. 3.Hyponatremia, likely from fluid retention and volume overload. Diuresis with Lasix as above. 4.Cardiac preoperative risk assessment. This patient does not have history of coronary artery disea se; however, she has diastolic heart failure. Ejection fraction is normal and she has a hip fracture that needs surgical repair, then to proceed without any further cardiac workup due to the urgent tiny ure of the procedure. Thank you for the consult. /KESHAWN Voice ID: [id number] Report ID: [id number]
--- NOTE | 2022-01-19 15:43 | RAD REPORT ---
EXAM DESCRIPTION: CT - Pelvis Wo Cont - 01/19/2022 3:31 pm CLINICAL HISTORY: eval left hip fracture Pain and swelling COMPARISON: Hip Bilateral With Pelvis dated 01/19/2022 TECHNIQUE: All CT scans are performed using dose optimization technique as appropriate and may inclu de automated exposure control or mA/KV adjustment according to patient size. FINDINGS: Prominent diffuse osteopenia is seen. Mildly comminuted intratrochanteric fracture the proximal left femur is seen with varus angulation. M oderate fracture fragment displacement noted. No additional fracture is evident. Femoroacetabular joint is intact. Both sacral ala are intact. Moderate soft tissue swelling is seen surrounding the left hip. IMPRESSION: Intratrochanteric fracture of the proximal left femur is present with significant varus angulation.
--- NOTE | 2022-01-19 16:32 | RAD REPORT ---
EXAM DESCRIPTION: RAD - Femur Left - 01/19/2022 4:04 pm CLINICAL HISTORY: left hip pain Trauma, left hip COMPARISON: No comparisons FINDINGS: Displaced intratrochanteric fracture seen of the proximal left femur with varus angulation . No additional fracture evident.
[2022-01-19] MEDS: SOTALOL HCL 80 MG TAB PO SCH (17:49)
[2022-01-19 18:11] LABS: Hematocrit 19.6 % (36.0-45.0)
[2022-01-19] MEDS ORDERED: FUROSEMIDE 20 MG/ 2ML VIAL IV SCH (20:00)
[2022-01-19] MEDS ORDERED: NA CHLORIDE 0.9% 250 ML ONE (20:39)
[2022-01-19] MEDS: CODEINE 30MG/APAP 300MG TAB PO PRN (20:56)
[2022-01-19] MEDS: ATORVASTATIN 10 MG TAB PO SCH (21:20)
[2022-01-19] MEDS: ENSURE ENLIVE 237 ML CAN PO SCH (21:21)
[2022-01-20] MEDS: PIPER TAZO 3.375 GM in NA CHLORIDE 0.9% 100 ML IV SCH ×3 (00:59→18:25)
[2022-01-20] MEDS: NITROGLYCERIN 1 GM PKT TD SCH ×3 (01:00→18:26)
--- NOTE | 2022-01-20 01:42 | PN ---
Date of Progress Note: 01/19/2022 The patient was seen this morning for followup. She was looking a lot better this morning. Her husb and was with her at bedside and she denied any new complaints or problems when I saw her. After I sa w her, she started complaining of left hip pain when nurses were trying to move her and x-ray of the hip and pelvis was done, which has shown left hip intertrochanteric fracture with displacement. Objective: Vital Signs: Reviewed. HEENT: Unremarkable. Lungs: Clear to auscultation. Heart: Sounds normal. Abdomen: Soft. Bowel sounds normal. No guarding, rigidity, tenderness, distention. Extremities: No leg edema. Laboratory Data: White count 11, hemoglobin 8.3 this morning, platelets 134. Repeat hemoglobin done later this afternoon was between 5 to 6. Sodium this morning was 133, potassium 4, chloride 98, bic arb 33, BUN 13, creatinine 0.39, glucose 123, magnesium 1.8. Impression: 1.Left hip fracture. 2.Hyponatremia. 3.Hypertension. 4.Anemia due to acute blood loss. Plan: The patient's blood culture definite identification and sensitivity result are pending. Only 1 bottle is growing gram-positive cocci and there is a possibility this could be skin contamination. She is currently on Zosyn. We will add vancomycin. For her hip fracture, we have consulted Dr. Yaquelin thompson. Details were discussed with him and he will plan to do surgery tomorrow. Today after this aftern oon's hemoglobin, which was lower than this morning, I have ordered 3 units of PRBC blood transfusion and 20 mg of Lasix IV x1 dose to be given after 2 units PRBC completed and we will do hemoglobin, he matocrit check 2 hours after the last PRBC blood transfusion. Discontinue Lovenox. SCD was ordered for DVT prophylaxis. Details were discussed with the patient's family members, that is son and husba nd today when came to office. I will see her tomorrow morning for followup. GAYLE/MODL Voice ID: [id number] Report ID: [id number]
[2022-01-20] MEDS ORDERED: FUROSEMIDE 20 MG/ 2ML VIAL IV ONE (02:20)
[2022-01-20] MEDS: SOTALOL HCL 80 MG TAB PO SCH ×2 (05:09→18:00)
[2022-01-20] MEDS: LEVOTHYROXINE SOD 0.1 MG TAB PO SCH (05:09)
[2022-01-20] MEDS: MORPHINE 2 MG/ML SYR IV PRN (05:12)
[2022-01-20] MEDS: AMLODIPINE 2.5 MG TAB PO SCH ×2 (09:00→09:01)
[2022-01-20] MEDS: TIMOLOL 0.5% OPTH SCH (09:00)
[2022-01-20] MEDS: BRINZOLAMIDE OPTH SCH ×2 (09:00→20:49)
[2022-01-20] MEDS: OPTH OPTH SCH (09:00)
[2022-01-20] MEDS: ENSURE ENLIVE 237 ML CAN PO SCH ×2 (09:00→20:51)
[2022-01-20] MEDS: SODIUM BICARB 325 MG TAB PO SCH ×3 (09:00→20:49)
[2022-01-20] MEDS ORDERED: VANCOMYCIN 0.75 GM in NA CHLORIDE 0.9% 150 ML IVPB SCH (09:00)
[2022-01-20] MEDS: FUROSEMIDE 20 MG/ 2ML VIAL IV SCH (09:01)
[2022-01-20] MEDS ORDERED: NALOXONE 0.4 MG/ML VIAL IV ONE (09:18)
[2022-01-20] MEDS ORDERED: NALOXONE 0.4 MG/ML VIAL ONE (09:22)
[2022-01-20] MEDS ORDERED: NALOXONE HCL 2 MG/2 ML VIAL IV ONE (10:00)
[2022-01-20 10:02] LABS: Arterial Blood Carboxyhemoglob 1.4 % (0-1.5); Blood Gas Oxyhemoglobin 95.5 % (94-97); Blood O2 Saturation 98.3 % (92-98.5)
[2022-01-20 13:25] LABS: Hematocrit 41.3 % (36.0-45.0)
--- NOTE | 2022-01-20 15:18 | CON ---
Date of Consultation: 01/19/2022 Reason For Consultation: Left hip fracture. History Of Present Illness: Ms. Valdes is an 81-year-old female who was brought to the emergency ro om on January 17 for weakness. The patient's states that she was ambulating and was weak an d had to sit down on the ground secondary to her weakness. She denies any significant fall to her hi p. She was admitted to the floor for acute respiratory failure with hypoxia, as well as some electro lyte disturbances. She was also noted to have anemia and has been given some packed red blood cells. She reported some increased pain to her left hip earlier today and had x-rays which demonstrated a left hip intertrochanteric femur fracture. Prior to her hospitalization, the patient was ambulatory with the use of a walker. Review of Systems: As above, otherwise negative. Past Medical History: Includes hypothyroidism, hyponatremia, hypertension, hyperlipidemia, diverticu losis, osteoporosis, myelodysplastic syndrome. Past Surgical History: Includes cataract surgery, cholecystectomy, hysterectomy, and back surgery. Family History: Reviewed and noncontributory. Allergies: NO KNOWN DRUG ALLERGIES. Medications: Per medication reconciliation form. Social History: Negative tobacco or alcohol use. Physical Examination: General: No apparent distress. Cachectic. HEENT: Normocephalic, atraumatic. Neck: Supple. Cardiovascular: Brisk cap refill to all digits. Chest: Nonlabored breathing. Abdomen: Nondistended. Psychiatric: Responds to exam. Musculoskeletal: Bilateral upper extremities functional range of motion without pain. No gross defo rmities. No obvious dislocations. Right lower extremity with functional range of motion without domenica n. No gross deformities. No obvious dislocations. Left lower extremity, pain with range of motion. Tenderness to palpation of the left hip. No tenderness to palpation over the knee, tibia, or ankle . Sensation grossly intact to the dorsal and plantar foot. She reports some chronic neuropathy in b oth lower extremities. Brisk cap refill to all digits. Diagnostic Studies: X-rays and CT scan demonstrated a left intertrochanteric femur fracture with pro ximal migration of the femur. Assessment And Plan: Ms. Valdes is an 81-year-old female with a left intertrochanteric femur fractu re. I discussed with the patient as well as her family at length the diagnosis as well as treatment plan given the fracture pattern and pain. We will proceed with operative treatment. We discussed th e patient's elevated risk given her ongoing medical issues regarding her respiratory status, as well as anemia, and recent bouts of atrial fibrillation. They expressed understanding, would like to cont inue with operative treatment. We will plan on cephalomedullary fixation of the left hip tomorrow, a nd the patient will be n.p.o. after midnight. CV/MODL Voice ID: [id number] Report ID: [id number]
--- NOTE | 2022-01-20 19:09 | PN ---
Date of Progress Note: 01/20/2022 Subjective: Seen by bedside, appears to be stable. No distress. Review of Systems: No chest pain, shortness of breath, orthopnea, cough. Generally weak and she has lower extremity shi ma. Physical Examination: Vital Signs: Reviewed. Head and Neck: Pupils are equal, reactive to light. Intact eye movements. Positive JVD. No cervic al lymphadenopathy. Neck is supple. Thyroid is not enlarged. Lungs: Crackles both bases. No accessory muscle use or muscle retraction. Heart: Irregularly irregular. No extra sounds. Abdomen: Soft, nontender. Bowel sounds positive. No organomegaly. No masses or hernia. No rigidi ty or rebound. Extremities: Edema bilaterally. No clubbing or cyanosis. Intact pulses. Skin: No rash. Neurologic: Alert, awake. No acute focal deficits appreciated. Investigations: Labs were reviewed. Assessment And Recommendations: 1.Acute on chronic diastolic heart failure, severely elevated filling pressure with right ventricula r systolic pressure above 60 mmHg. Diuresis is recommended. I started her on Lasix yesterday for th at purpose and she seems to be diuresing very well. Please carefully monitor BMP, electrolytes, BUN and creatinine on daily basis and to avoid over diuresis. The patient responding very well on such a low dose of Lasix. 2.Atrial fibrillation. I put her on sotalol. After the third dose, please obtain an EKG to evaluat e the QTc interval and this patient will need some sort of anticoagulation after her hip surgery. 3.Hip fracture. I discussed the case with Dr. Savage. Given the urgent nature of the surgery, I woul d recommend no further workup except optimization with diuretics and will be following the patient while in-house. SR/MODL Voice ID: [id number] Report ID: [id number]
[2022-01-20 19:51] LABS: Potassium 3.2 mmol/L (3.5-5.1)
[2022-01-20] MEDS: D5 0.9 NS 1,000 ML IV SCH (20:47)
[2022-01-20] MEDS: ATORVASTATIN 10 MG TAB PO SCH (20:49)
[2022-01-20] MEDS ORDERED: POTASSIUM CL SA 10 MEQ TAB PO ONE (22:00)
[2022-01-20] MEDS ORDERED: MAGNESIUM SULFATE 1 gm IVPB 1 GM/100 ML BAG IV ONE (22:00)
[2022-01-20] MEDS: CODEINE 30MG/APAP 300MG TAB PO PRN (22:48)
--- NOTE | 2022-01-21 00:30 | PN ---
Date of Progress Note: 01/20/2022 Subjective: Patient was seen this morning for followup. She was lying in bed, sleeping. Her was with her at bedside and reported that the patient did not sleep well all night and this morning when I saw her, she was sleeping. She woke up with her eyes open, but did not communicate with me. She was not in any respiratory distress. After I saw her, later on nurse contacted and informed me that the patient was obtunded and had very shallow and slow breathing. At that time, her blood pressure was stable. IV Narcan was ordered 0.4 mg and stat arterial blood gas was done and after the arterial blood gas was done, patient was placed on BiPAP. Result of arterial blood gas reviewed and subsequently patient was given second dose of Narcan 1 mg. She completed her blood transfusion. Post transfusion hemoglobin is much better. Troponin level was normal at 34. I did go back this evening to check on patient and she was doing much better. She was on nasal cannula oxygen, but she remained on BiPAP up until just a while ago, before I went into her room this evening, she was changed from BiPAP to nasal cannula oxygen. She was happy, smiling. Denied any complaints. Her son and were present at bedside. Objective: Vital Signs: Reviewed. HEENT: Unremarkable. Lungs: Clear to auscultation. Not using any accessory muscles of respiration. Heart: Sounds normal. Abdomen: Soft. Bowel sounds normal. No guarding, rigidity, tenderness, or distention. Extremities: No leg edema. Laboratory Data: Reviewed. Impression: 1. Acute blood loss anemia. 2. Acute respiratory failure with hypercapnia. 3. Left hip fracture. Plan: We will go ahead and continue to use BiPAP overnight. I did communicate with Dr. Savage earlier during the course of day today and her surgery, which was planned for today was canceled and this evening I did call Dr. Savage and gave him updates and our plan is to keep her n.p.o. after midnight and plan to have left hip surgery tomorrow. The patient should remain on BiPAP overnight. Maintenance IV fluid D5 normal saline at 30-40 cc was ordered and I will see her tomorrow morning for followup. Details were discussed with the patient's family as well. GAYLE/MODL Voice ID: [id number] Report ID: [id number] [facility] CENTERCatarino
[2022-01-21] MEDS: PIPER TAZO 3.375 GM in NA CHLORIDE 0.9% 100 ML IV SCH ×3 (01:19→17:32)
[2022-01-21] MEDS: NITROGLYCERIN 1 GM PKT TD SCH ×3 (01:19→17:33)
[2022-01-21] MEDS: MORPHINE 2 MG/ML SYR IV PRN ×2 (02:27→09:04)
[2022-01-21] MEDS: SOTALOL HCL 80 MG TAB PO SCH ×2 (05:33→17:32)
[2022-01-21] MEDS: LEVOTHYROXINE SOD 0.1 MG TAB PO SCH (05:55)
[2022-01-21 05:57] LABS: Absolute Lymphocytes (CBC) 0.5 K/uL (0.7-4.9); Hematocrit 37.3 % (36.0-45.0); Lymphocytes % 5.4 % (15.3-44.8); MPV 7.6 fL (7.6-11.3)
[2022-01-21 06:13] LABS: Magnesium 2.2 mg/dL (1.8-2.4); Potassium 3.7 mmol/L (3.5-5.1)
[2022-01-21] MEDS: ENSURE ENLIVE 237 ML CAN PO SCH ×2 (08:51→20:31)
[2022-01-21] MEDS: BRINZOLAMIDE OPTH SCH ×2 (08:51→20:36)
[2022-01-21] MEDS: FUROSEMIDE 20 MG/ 2ML VIAL IV SCH (08:52)
[2022-01-21] MEDS: AMLODIPINE 2.5 MG TAB PO SCH (08:55)
[2022-01-21] MEDS: TIMOLOL 0.5% OPTH SCH (08:56)
[2022-01-21] MEDS: SODIUM BICARB 325 MG TAB PO SCH ×3 (08:56→21:00)
[2022-01-21] MEDS: OPTH OPTH SCH (08:56)
[2022-01-21] MEDS ORDERED: KCL 20 MEQ/100 mL IVPB 20 MEQ/100 ML BAG IV SCH (09:00)
--- NOTE | 2022-01-21 14:48 | RAD REPORT ---
EXAM DESCRIPTION: RAD - Chest Single View - 01/21/2022 1:11 pm CLINICAL HISTORY: resp failure Chest pain. COMPARISON: Chest Single View dated 01/18/2022; Chest Single View dated 01/17/2022; Chest Single Vie w dated 01/25/2020; Chest Pa And Lat (2 Views) dated 03/10/2017 FINDINGS: Portable technique limits examination quality. The exam is quite limited by patient positioning and habitus. Mild bilateral pulmonary opacities may represent pulmonary edema. Small pleural effusions. The heart is enlarged with a tortuous thoracic ao rta.
[2022-01-21 16:30] LABS: Arterial Blood Carboxyhemoglob 2.3 % (0-1.5); Blood Gas Oxyhemoglobin 82.5 % (94-97); Blood O2 Saturation 85.6 % (92-98.5)
[2022-01-21] MEDS: ATORVASTATIN 10 MG TAB PO SCH ×2 (20:30→21:00)
[2022-01-22] MEDS: NITROGLYCERIN 1 GM PKT TD SCH ×3 (01:00→17:00)
--- NOTE | 2022-01-22 01:12 | PN ---
Date of Progress Note: 01/21/2022 Subjective: Patient was seen this morning for followup. She was lying in bed, not in any distress, on BiPAP, this morning when I saw her. Her was with her at bedside. The patient was awake, alert, smiling, and answering questions appropriately, Objective: Vital Signs: Reviewed. HEENT: Unremarkable. Lungs: Clear to auscultation. Heart: Sounds normal. Abdomen: Soft. Bowel sounds normal. No guarding, rigidity, tenderness, distention. Extremities: No leg edema. Laboratory Data: White count 9.3, hemoglobin 12.9, platelets 143. Sodium 135, potassium 3.7, chloride 93, bicarb 38, BUN 18, creatinine 0.55, glucose 130, magnesium 2.2. Impression: 1. Left hip fracture. 2. Anemia, due to acute blood loss. 3. Hypokalemia. 4. Hypomagnesemia. 5. Acute respiratory failure with hypercapnia. Plan: We will go ahead and continue current IV fluid. Continue BiPAP therapy with oxygen replacement therapy. Continue current empiric antibiotic. Dr. Paris from Pulmonary was consulted yesterday for respiratory failure problem. Today, we were planning to do surgery for her left hip fracture, but anesthesiologist had concerns about the patient may end up ventilator-dependent after surgery and did not feel comfortable taking the patient to surgery until steamship agent evaluates her and Dr. Paris had not seen her today so surgery was postponed and hopefully we can have surgery tomorrow depending on what Dr. Paris thinks and says about her pulmonary situation. I will see her tomorrow for followup. GAYLE/MODL Voice ID: [id number] Report ID: [id number] MTDD
[2022-01-22] MEDS: MORPHINE 2 MG/ML SYR IV PRN ×2 (01:32→15:10)
[2022-01-22] MEDS: PIPER TAZO 3.375 GM in NA CHLORIDE 0.9% 100 ML IV SCH ×3 (01:32→16:48)
[2022-01-22] MEDS: D5 0.9 NS 1,000 ML IV SCH ×2 (05:20→15:15)
[2022-01-22 05:46] LABS: Absolute Lymphocytes (CBC) 0.6 K/uL (0.7-4.9); Hematocrit 43.2 % (36.0-45.0); Lymphocytes % 4.7 % (15.3-44.8); MCV 90.9 fL (80-100); MPV 8.5 fL (7.6-11.3); RBC Red Blood Cell Count 4.75 M/uL (3.86-4.86)
[2022-01-22] MEDS: SOTALOL HCL 80 MG TAB PO SCH ×3 (06:00→20:01)
[2022-01-22 06:02] LABS: Magnesium 1.6 mg/dL (1.8-2.4); Phosphorus 1.4 mg/dL (2.5-4.9)
[2022-01-22 06:05] LABS: Potassium 2.5 mmol/L (3.5-5.1)
[2022-01-22] MEDS: LEVOTHYROXINE SOD 0.1 MG TAB PO SCH (06:27)
[2022-01-22] MEDS: KCL 20 MEQ/100 mL IVPB 20 MEQ/100 ML BAG IV SCH ×2 (06:46→07:00)
[2022-01-22] MEDS ORDERED: POTASSIUM PHOS IN 0.9 % NACL 15 MMOL/250 ML BAG IV ONE (07:12)
[2022-01-22] MEDS ORDERED: MAGNESIUM SULFATE 1 gm IVPB 1 GM/100 ML BAG IV ONE (07:41)
--- NOTE | 2022-01-22 08:38 | P.CNS ---
Date of Consult: 01/22/22 Reason for Consult: Respiratory failure left intertrochanteric fracture Chief Complaint: Respiratory failure History of Present Illness: Patient is 81 years of age lives at home with her had poor appetite failure to thrive losing weight some mild diarrhea currently she became very weak was unable to get off the commode when called the EMS was found to be in respiratory distress placed on BiPAP hypoxic hypercapnic Patient was diagnosed to have left-sided intertrochanteric fracture in addition patient also has decubitus ulcers no prior history of smoking Patient is currently on BiPAP hemodynamically stable Allergies No Known Allergies Allergy (Unverified 01/17/22 05:29) Home Medications: Brinzolamide 1 ml OP BID 01/17/22 Timolol 0.5% Opth [Timoptic 0.5% Opth*] 1 drops OPTH DAILY 01/17/22 - Past Medical/Surgical History -: Significant for hypothyroidism impaired glucose tolerance hyponatremia -: Osteoarthritis myelodysplastic syndrome osteoporosis -: Cataract surgery cholecystectomy hysterectomy back surgery - Social History Smoking Status: Current every day smoker Alcohol use: No Review of Systems is unable to be obtained Physical Examination Temp Pulse Resp BP Pulse Ox 97.7 F 75 12 175/81 H 97 01/22/22 00:00 01/22/22 00:00 01/22/22 02:02 01/22/22 00:00 01/22/22 02:02 General: Alert, Oriented x2 HEENT: Atraumatic Respiratory: Clear to auscultation bilaterally, Diminished Cardiovascular: No edema, Normal pulses, Normal S1 S2 Gastrointestinal: Normal bowel sounds, Soft and benign Musculoskeletal: No clubbing, No swelling Integumentary: No rashes, No breakdown - Problems (1) Respiratory failure Current Visit: Yes Status: Acute Plan: Patient is 81 years of age admitted with progressive weight loss weakness left hip fracture decubitus ulcer electrolyte imbalance developed hypercapnia hypoxemia oxygenation satisfactory blood pressure mildly elevated chest x-ray is rotated some interstitial changes he is to have severe pulmonary hypertension normal left ventricular function presumed secondary to diastolic dysfunction currently on morphine because some respiratory depression only on Lasix patient at home takes atorvastatin Tylenol 3 amlodipine levothyroxine metoprolol losartan recently put on Bactrim thyroid function test is normal patient is sche duled to have hip surgery today Qualifiers: Chronicity: unspecified
[2022-01-22] MEDS: SODIUM BICARB 325 MG TAB PO SCH ×2 (09:00→20:01)
[2022-01-22] MEDS: BRINZOLAMIDE OPTH SCH ×2 (09:00→21:00)
[2022-01-22] MEDS: OPTH OPTH SCH (09:00)
[2022-01-22] MEDS: FUROSEMIDE 20 MG/ 2ML VIAL IV SCH (09:00)
[2022-01-22] MEDS: AMLODIPINE 2.5 MG TAB PO SCH (09:00)
[2022-01-22] MEDS: ENSURE ENLIVE 237 ML CAN PO SCH ×2 (09:00→20:54)
[2022-01-22] MEDS: TIMOLOL 0.5% OPTH SCH (09:00)
[2022-01-22] MEDS ORDERED: BUPIVACAINE 0.25% PF 30 ML VIAL ONE (09:51)
[2022-01-22] MEDS ORDERED: FENTANYL CITR 100 MCG/2 ML ONE (10:29)
[2022-01-22] MEDS ORDERED: EPHEDRINE SULF 50 MG/ML VIAL ONE (10:29)
[2022-01-22] MEDS ORDERED: Phenylephrine HCl 10 MG/ML 1 ML VIAL ONE (10:29)
[2022-01-22] MEDS ORDERED: ROCURONIUM 50 MG/5 ML VIAL IV ONE (10:29)
[2022-01-22] MEDS ORDERED: BUPIVACAINE 0.5% Inj,MDV 50 mL VIAL ONE (10:31)
[2022-01-22] MEDS ORDERED: ETOMIDATE 20 MG/10 ML VIAL IV ONE (10:31)
[2022-01-22] MEDS ORDERED: NS 0.9% VIAL 30 ML ONE (10:32)
[2022-01-22] MEDS ORDERED: LIDOCAINE 1.5% W/EPI AMP 5 ML ONE (10:33)
[2022-01-22] MEDS ORDERED: NA CHLORIDE 0.9% 1,000 ML ONE ×2 (10:51→11:57)
[2022-01-22] MEDS ORDERED: TRANEXAMIC ACID 1,000 MG/10 ML VIAL IV ONE (11:25)
[2022-01-22] MEDS ORDERED: NOREPINEPHRINE BITARTRATE/D5W 4 MG/250 ML PREMIX IV ONE (11:47)
[2022-01-22] MEDS ORDERED: MIDAZOLAM HCL 2 MG/2 ML INJ ONE (11:56)
--- NOTE | 2022-01-22 12:28 | RAD REPORT ---
EXAM DESCRIPTION: XA - Hip in OR Left 2 View - 01/22/2022 12:16 pm CLINICAL HISTORY: LEFT HIP RODDING COMPARISON: No comparisons FINDINGS: Fluoroscopy time 0.7 minutes.
--- NOTE | 2022-01-22 12:44 | P.BOP ---
Preoperative diagnosis: left intertrochanteric femur fracture Postoperative diagnosis: same Primary procedure: cephallomedullary fixation of left intertrochanteric femur fracture Service Establishment Attendant: NONE,NONE Estimated blood loss: 100 cc Specimen: none Anesthesia: General Complications: None Drain(s): Urinary catheter Implants: 9x180 mm Biomet Affixus nail, 95 mm lag screw Fluids & blood products: per anesthesia record Transferred to: Recovery Room Condition: Serious
[2022-01-22] MEDS ORDERED: NA CHLORIDE 0.9% 250 ML IV ONE ×2 (13:17→23:25)
--- NOTE | 2022-01-22 14:08 | RAD REPORT ---
EXAM DESCRIPTION: RAD - Chest Single View - 01/22/2022 1:35 pm CLINICAL HISTORY: ET TUBE placement COMPARISON: Chest Single View dated 01/21/2022; Chest Single View dated 01/18/2022; Chest Single Vie w dated 01/17/2022; Chest Single View dated 01/25/2020; Abdomen Pelvis W Contrast dated 01/25/2020 FINDINGS: Interval placement of an endotracheal tube. The endotracheal tube is angulated towards the right. It does appear well above the chiara at the level of the aortic arch. This appearance could b e related to rotation and and/or the course of the patient's trachea. Pulmonary opacities again noted . These are fairly widespread. The lung volumes have increased. Kyphoplasty changes. IMPRESSION: 1. Endotracheal tube at the aortic arch and probably in satisfactory position. See above . 2. Improved lung volumes but bilateral airspace again remains and could reflect pneumonia and/or scott a.
[2022-01-22] MEDS ORDERED: HALOPERIDOL LACT 5 MG/ML INJ IV PRN ×2 (14:22→18:47)
[2022-01-22] MEDS ORDERED: FENTANYL CITR 100 MCG/2 ML IV PRN (14:22)
[2022-01-22] MEDS ORDERED: MIDAZOLAM HCL 2 MG/2 ML INJ IV PRN (14:22)
[2022-01-22] MEDS ORDERED: LORazepam 2 MG/ML VIAL IV PRN (14:22)
[2022-01-22] MEDS ORDERED: propofoL 1,000 MG/100 ML VIAL IV SCH (15:00)
[2022-01-22 15:14] LABS: Hematocrit 44.7 % (36.0-45.0)
--- NOTE | 2022-01-22 17:11 | RAD REPORT ---
EXAM DESCRIPTION: RAD - Hip Left 1 View - 01/22/2022 3:57 pm CLINICAL HISTORY: status post surgery COMPARISON: Femur Left dated 01/19/2022 FINDINGS/IMPRESSION: Intramedullary skyler with cephalomedullary screw in the left femur. No evidence i mmediate hardware complications or new acute fractures. The left hip is located.
--- NOTE | 2022-01-22 17:12 | RAD REPORT ---
EXAM DESCRIPTION: RAD - Abdomen 1 View (KUB) - 01/22/2022 3:57 pm CLINICAL HISTORY: Placement of NGT/OGT. Post Insertion. COMPARISON: No comparisons FINDINGS: Feeding tube overlies the lower stomach. Nonspecific gaseous distention of the small bowel and colon. No evidence of an overt bowel obstruction. Kyphoplasty changes in the thoracic spine. Par nicci imaged hardware at the left hip. IMPRESSION: Nonobstructive bowel gas pattern. Feeding tube overlies the lower stomach.
[2022-01-22] MEDS ORDERED: MORPHINE 2 MG/ML SYR IV PRN (18:44)
[2022-01-22] MEDS ORDERED: VITAL AF 1,000 ML BOT FT SCH (19:00)
[2022-01-22] MEDS ORDERED: NOREPINEPHRINE 4 MG in D5W 250 ML IV SCH (20:00)
[2022-01-22] MEDS: ENOXAPARIN 30 MG/0.3 ML SQ SCH (20:00)
[2022-01-22] MEDS: FAMOTIDINE 20 MG/2 ML VIAL IV SCH (20:01)
[2022-01-22] MEDS: ATORVASTATIN 10 MG TAB PO SCH (20:01)
[2022-01-22] MEDS ORDERED: KCL 20 MEQ/100 mL IVPB 20 MEQ/100 ML BAG IV SCH (21:00)
[2022-01-22] MEDS ORDERED: POTASSIUM 25 MEQ EFFERV TAB PO ONE (21:00)
[2022-01-22] MEDS ORDERED: FENTANYL 25 MCG/PATCH TD SCH (21:00)
[2022-01-22] MEDS: LORazepam 2 MG/ML VIAL IV PRN (21:40)
--- NOTE | 2022-01-22 22:03 | PN ---
Date of Progress Note: 01/22/2022 Subjective: The patient was seen this morning for followup. No new complaints or problems reported by patient. She was lying in bed, not in any distress. Her was with her at bedside. She wa s on nasal cannula oxygen this morning and reported that she did not use BiPAP last night. Objective: Vital Signs: Reviewed. HEENT: Unremarkable. Lungs: Clear to auscultation. Not using any accessory muscles of respiration. Heart: Sounds normal. Abdomen: Soft. Bowel sounds normal. No guarding, rigidity, tenderness, distention. Extremities: No leg edema. Laboratory Data: White count 12.2, hemoglobin 14.7, platelets 157. Sodium 132, potassium 2.5, chlor jada 86, bicarb 40, BUN 9, creatinine 0.35, glucose 128, magnesium 1.6, phosphorus 1.4. Impression: 1.Left hip fracture. 2.Acute blood loss anemia. 3.Hypokalemia. 4.Hypomagnesemia. 5.Hypophosphatemia. 6.Chronic diastolic heart failure with acute exacerbation. 7.Acute respiratory failure with hypercapnia. Plan: We will go ahead and replace electrolytes per protocol. After I saw the patient this morning, details were discussed with Dr. Savage and he took her to surgery. After surgery, Dr. Savage did call m e, informed me that the patient had some problem with low blood pressure during surgery and postopera tive time. After surgery, the patient remained intubated and was brought to ICU. In ICU, she did fernandez ve problem with low blood pressure and we ordered IV fluid bolus and vasopressor medication. Ventila tor management to be provided by Dr. Paris. We will start DVT prophylaxis with Lovenox when okay with Dr. Savage. Meanwhile continue SCD. I will see her tomorrow for followup. We will repeat blood work tomorrow morning. GAYLE/MODL Voice ID: [id number] Report ID: [id number]
--- NOTE | 2022-01-23 00:24 | OP ---
Date of Procedure: 01/22/2022 Surgeon: Adalid Savage MD Preoperative Diagnosis: Left intertrochanteric femur fracture. Postoperative Diagnosis: Left intertrochanteric femur fracture. Procedure Performed: Cephalomedullary fixation of left intertrochanteric femur fracture. Anesthesia: General endotracheal. Fluids: Per Anesthesia record. Estimated Blood Loss: 200 cc. Complications: None. Implants: 9 x 180 mm Biomet AFFIXUS nail with a 95 mm lag screw. Indication For Procedure: Daisy is an 81-year-old female who was admitted to the floor over the weekend with increased pain to her left hip. She had x-rays, which demonstrated left intertrochanteric femur fracture. The patient was noted to have elevated pulmonary blood pressure and had to be on BiPAP given her elevated CO2 levels. Given her significant pain and fracture pattern, we discussed both operative and nonoperative treatment. I discussed with the family and informed them that it would be a very high-risk procedure given her preoperative status; however, given her significant amount of pain and desire to remain independent and mobile they elected to proceed with operative treatment. Description Of Procedure: After informed consent was obtained, the patient was identified in her room and her left lower extremity was marked. She was then brought back directly to the operating room, transferred to the operating table in a supine fashion and placed under general endotracheal anesthesia. The left lower extremity was then prepped and draped in usual sterile fashion. A time- out was initiated. The correct patient and procedure were confirmed and identified. The patient did receive preoperative prophylactic antibiotics. Approximately, a 6 cm longitudinal incision was made just proximal to greater trochanter. Guide pin was placed down the tip of the greater trochanter in an antegrade fashion. Anterior reamer was then placed over and a ball-tipped guidewire was then placed through the femur in an antegrade fashion. A size 9 x 180 mm, 130 degree nail was then placed over the guidewire. Triple sleeve was then used to place the guide pin within the femoral head in a center-center position. Fluoroscopy was used to ensure proper positioning of the implants and once it was in a center-center position, it was measured and a size 95 mm lag screw was selected. A lag screw was placed after anti-rotation pin was placed to minimize movement at the fracture site. A 95 mm lag screw was then placed. Compression was made to compress the fracture site and the fracture was locked into the position and a single interlocking screw was placed distally in bicortical fashion. The jig was then removed. Wounds were then irrigated thoroughly with normal saline. Subcutaneous tissue was approximated using 2-0 Vicryl. Skin was approximated using the kay. Sterile dressings were applied. The patient was transferred to ICU in serious condition as she was noted to have low pressures during the procedure as well as decreased oxygen levels. While she is in the ICU, Dr. Ceballos was informed of her condition during the surgery and to be discussed with the patient's family that the patient was in serious condition given her underlying pulmonary pathology and response to anesthesia. The patient will be weightbearing as tolerated once medically stable. CV/MODL Voice ID: [id number] Report ID: [id number] MTDD
[2022-01-23] MEDS: NITROGLYCERIN 1 GM PKT TD SCH (00:45)
[2022-01-23] MEDS: PIPER TAZO 3.375 GM in NA CHLORIDE 0.9% 100 ML IV SCH ×3 (00:48→18:09)
[2022-01-23] MEDS ORDERED: POTASSIUM 25 MEQ EFFERV TAB PO ONE ×2 (04:38→18:15)
[2022-01-23 05:17] LABS: Absolute Lymphocytes (CBC) 0.7 K/uL (0.7-4.9); Hematocrit 32.6 % (36.0-45.0); Lymphocytes % 5.3 % (15.3-44.8); MCV 90.7 fL (80-100); MPV 7.9 fL (7.6-11.3); RBC Red Blood Cell Count 3.59 M/uL (3.86-4.86)
[2022-01-23 05:29] LABS: Magnesium 1.8 mg/dL (1.8-2.4)
[2022-01-23 05:30] LABS: Potassium 2.9 mmol/L (3.5-5.1)
[2022-01-23] MEDS: SOTALOL HCL 80 MG TAB PO SCH ×2 (05:53→18:08)
[2022-01-23] MEDS: LEVOTHYROXINE SOD 0.1 MG TAB PO SCH (05:53)
[2022-01-23 06:20] VITALS: BMI 16.1
[2022-01-23 06:24] LABS: Blood Gas Oxyhemoglobin 94.2 % (94-97); Blood O2 Saturation 97.4 % (92-98.5)
[2022-01-23] MEDS ORDERED: POTASSIUM PHOS IN 0.9 % NACL 15 MMOL/250 ML BAG IV ONE ×2 (07:00→18:45)
[2022-01-23] MEDS ORDERED: MAGNESIUM SULFATE 1 gm IVPB 1 GM/100 ML BAG IV ONE (07:00)
--- NOTE | 2022-01-23 08:44 | RAD REPORT ---
EXAM DESCRIPTION: RAD - Chest Single View - 01/23/2022 7:12 am CLINICAL HISTORY: ventilated, shortness of breath COMPARISON: Portable 01/22/2022 TECHNIQUE: AP portable chest image was obtained 01/23/2022 7:12 am . FINDINGS: Endotracheal tube is in place. Tip is in the lower aortic arch level approximately 2.5 cm above the chiara. This is satisfactory positioning. Cardiac leads overlie the chest. No new tube or l ine identified. Lung volumes are low. Bilateral lung base patchy interstitial opacification is present probably atele ctasis. A new or progressive infiltrative process is not seen. The lung base pneumonia cannot be excl uded but there is no progressive process. The patient has extensive chronic interstitial lung disease . Heart and vasculature are normal. No pneumothorax. Bilateral pleural effusions are suspected. No acu te bony abnormality seen. No acute aortic findings suspected. IMPRESSION: Small pleural effusions and lung base atelectasis are present. Lung base pneumonia canno t be excluded. There is no progressive process. Satisfactory positioning of the endotracheal tube.
[2022-01-23] MEDS: SODIUM BICARB 325 MG TAB PO SCH ×2 (08:52→21:08)
[2022-01-23] MEDS: ENOXAPARIN 30 MG/0.3 ML SQ SCH (08:53)
[2022-01-23] MEDS: FAMOTIDINE 20 MG/2 ML VIAL IV SCH ×2 (08:55→21:08)
[2022-01-23] MEDS: FUROSEMIDE 20 MG/ 2ML VIAL IV SCH (08:56)
[2022-01-23] MEDS: ENSURE ENLIVE 237 ML CAN PO SCH ×2 (09:00→20:44)
[2022-01-23] MEDS: BRINZOLAMIDE OPTH SCH ×2 (09:00→20:44)
[2022-01-23] MEDS: OPTH OPTH SCH (09:00)
[2022-01-23] MEDS: TIMOLOL 0.5% OPTH SCH (09:00)
[2022-01-23] MEDS: AMLODIPINE 2.5 MG TAB PO SCH (09:40)
--- NOTE | 2022-01-23 09:57 | P.PN ---
Subjective Date of Service: 01/23/22 Chief Complaint: Respiratory failure patient on a ventilator Subjective: Improving (Improving alert responsive cooperative vital signs stable) Review of Systems is unable to be obtained Physical Examination - Vital Signs Temperature: 97.6 F Blood Pressure: 171/87 Pulse: 95 Respirations: 16 Pulse Ox (%): 100 - Physical Exam General: Alert, Cooperative Respiratory: Clear to auscultation bilaterally, Diminished Cardiovascular: No edema, Regular rate/rhythm - Studies Microbiology Data (last 24 hrs): 01/17/22 01:20 Blood - Blood Aerobic Blood Culture - Final 01/17/22 01:20 Blood - Blood Blood Culture Gram Stain - Final 01/17/22 01:20 Blood - Blood Anaerobic Blood Culture - Final No growth in 5 days. Assessment And Plan - Current Problems (Diagnosis) (1) Respiratory failure Current Visit: Yes Status: Acute Plan: Respiratory failure patient had to be intubated s/pCephalomedullary fixation of left intertrochanteric femur fracture. She received 2 boluses of IV fluids and dynamically now stable plan to wean off the ventilator labs reviewed blood gases satisfactory hypokalemia chest x-ray chronic interstitial change plan to wean and extubate Qualifiers: Chronicity: unspecified
--- NOTE | 2022-01-23 13:09 | PN ---
Date of Progress Note: 01/23/2022 Subjective: Patient was seen this morning for followup. She had surgery done for left hip fracture yesterday. Postoperatively, she was brought in ICU and she remains on ventilator. This morning, she was on assist-control 30% FiO2 and maintaining adequate oxygenation. Hemodynamically, she was stabl e. She did not tolerate fentanyl IV or even fentanyl patch as both of those medications dropped her blood pressure. She did tolerate morphine 1 mg IV dose without any significant drop in the blood pre ssure. So, we will continue to use morphine 1 mg on an as needed basis for pain. This morning, she was lying in bed, not in any distress, maintaining adequate oxygenation. When I saw her, her oxygen saturation was 96%. Systolic blood pressure was around 135. Objective: Vital Signs: Reviewed. HEENT: Unremarkable. Lungs: Clear to auscultation. Heart: Sounds normal. Abdomen: Soft. Bowel sounds normal. No guarding, rigidity, tenderness, distention. Extremities: No leg edema. Laboratory Data: White count 13.6, hemoglobin 11.4, platelets 187. Sodium 135, potassium 2.9, chlor jada 94, bicarb 36, BUN 17, creatinine 0.69, glucose 131. Phosphorus 1, magnesium 1.8. Impression: 1.Left hip fracture. 2.Hypokalemia. 3.Hypomagnesemia. 4.Hypophosphatemia. 5.Anemia due to acute blood loss. 6.Acute respiratory failure with hypercapnia. Plan: We will go ahead and replace electrolytes per protocol. Continue to follow up with Dr. Ben blanca This morning when I was there visiting her, her ventilator settings changed from hospice control to SIMV. There is a good possibility that we might be able to extubate her today and Dr. Raina Gutierrez will make that decision today after he evaluates her this morning. Meanwhile, we will continue Lovenox for DVT prophylaxis. Continue current empiric antibiotic. We will see her tomorrow for followup. We will repeat blood work tomorrow morning and she is currently getting a nasogastric Dobbhoff tube feeding at 10 cc/hour. We will not increase the rate as there is a good possibility t hat we might extubate her and if that is the case, then she will be able to eat her normal usual diet . Details and plan of treatment discussed with the patient's . GAYLE/MODL Voice ID: [id number] Report ID: [id number]
[2022-01-23] MEDS: MORPHINE 2 MG/ML SYR IV PRN ×2 (14:17→18:24)
[2022-01-23] MEDS: LORazepam 2 MG/ML VIAL IV PRN (15:43)
[2022-01-23] MEDS ORDERED: LORazepam 2 MG/ML VIAL IV PRN (16:44)
[2022-01-23] MEDS ORDERED: LORazepam 2 MG/ML VIAL IV ONE (17:00)
[2022-01-23] MEDS: D5 0.9 NS 1,000 ML IV SCH (18:25)
--- NOTE | 2022-01-23 21:01 | RAD REPORT ---
EXAM DESCRIPTION: RAD - Chest Single View - 01/23/2022 8:44 pm CLINICAL HISTORY: PICC placement COMPARISON: Chest Single View dated 01/23/2022; Abdomen 1 View (KUB) dated 01/22/2022; Chest Single View dated 01/22/2022; Chest Single View dated 01/21/2022 FINDINGS: Lines: Endotracheal tube above the aortic arch. Left subclavian approach PICC with tip ove rlying the lower right atrium. Feeding tube tip overlies the stomach. Lungs: Mild basilar opacities likely reflecting atelectasis. Pleural: Small pleural effusions. Cardiac: Cardiomegaly. Mediastinum: Within normal limits. Bones: No acute fractures. Remote rib fractures. Kyphoplasty changes. Other: None IMPRESSION: The PICC should be retracted as is likely in the IVC. Suggest retracting by 5 cm and rep eat chest x-ray .
[2022-01-23] MEDS: ATORVASTATIN 10 MG TAB PO SCH (21:10)
--- NOTE | 2022-01-23 22:23 | RAD REPORT ---
EXAM DESCRIPTION: RAD - Chest Single View - 01/23/2022 10:11 pm CLINICAL HISTORY: PICC re-check COMPARISON: Chest Single View dated 01/23/2022; Chest Single View dated 01/23/2022; Abdomen 1 View ( KUB) dated 01/22/2022; Chest Single View dated 01/22/2022 FINDINGS/IMPRESSION: The PICC has been retracted and now overlies the distal SVC in satisfactory pos ition.
[2022-01-24 01:08] LABS: Phosphorus 2.7 mg/dL (2.5-4.9)
[2022-01-24 01:09] LABS: Potassium 2.9 mmol/L (3.5-5.1)
[2022-01-24] MEDS: PIPER TAZO 3.375 GM in NA CHLORIDE 0.9% 100 ML IV SCH ×3 (01:45→17:24)
[2022-01-24] MEDS: KCL 20 MEQ/100 mL IVPB 20 MEQ/100 ML BAG IV SCH ×5 (01:55→18:29)
[2022-01-24 05:20] LABS: Absolute Lymphocytes (CBC) 0.7 K/uL (0.7-4.9); Hematocrit 29.3 % (36.0-45.0); Lymphocytes % 5.2 % (15.3-44.8); MCV 92.1 fL (80-100); MPV 7.6 fL (7.6-11.3); RBC Red Blood Cell Count 3.18 M/uL (3.86-4.86)
[2022-01-24 05:42] LABS: Arterial Blood Carboxyhemoglob 2.1 % (0-1.5); Blood Gas Oxyhemoglobin 94.3 % (94-97); Blood O2 Saturation 97.5 % (92-98.5)
[2022-01-24] MEDS: SOTALOL HCL 80 MG TAB PO SCH ×2 (05:59→17:25)
[2022-01-24] MEDS: LEVOTHYROXINE SOD 0.1 MG TAB PO SCH (05:59)
[2022-01-24] MEDS: MORPHINE 2 MG/ML SYR IV PRN ×2 (06:45→15:41)
[2022-01-24] MEDS: SODIUM BICARB 325 MG TAB PO SCH ×2 (08:05→21:52)
[2022-01-24] MEDS: AMLODIPINE 2.5 MG TAB PO SCH (08:05)
[2022-01-24] MEDS: ENOXAPARIN 30 MG/0.3 ML SQ SCH (08:06)
[2022-01-24] MEDS: FAMOTIDINE 20 MG/2 ML VIAL IV SCH ×2 (08:06→21:54)
[2022-01-24] MEDS: FUROSEMIDE 20 MG/ 2ML VIAL IV SCH (08:06)
[2022-01-24] MEDS: ENSURE ENLIVE 237 ML CAN PO SCH ×2 (08:07→19:36)
[2022-01-24] MEDS: OPTH OPTH SCH (08:10)
[2022-01-24] MEDS: TIMOLOL 0.5% OPTH SCH (08:10)
[2022-01-24] MEDS: BRINZOLAMIDE OPTH SCH ×2 (08:10→19:36)
--- NOTE | 2022-01-24 08:43 | RAD REPORT ---
EXAM DESCRIPTION: Peggy Single View01/24/2022 5:13 am CLINICAL HISTORY: Ventilated COMPARISON: January FINDINGS: Endotracheal tube with its tip overlying the aortic arch. PICC line near the SVC atrial ju nction. Feeding tube in place. Mild bilateral pulmonary opacities without significant change IMPRESSION: No significant change since the prior exam
[2022-01-24 09:45] LABS: Magnesium 1.7 mg/dL (1.8-2.4); Phosphorus 2.5 mg/dL (2.5-4.9); Potassium 3.8 mmol/L (3.5-5.1)
[2022-01-24] MEDS ORDERED: MAGNESIUM SULFATE 1 gm IVPB 1 GM/100 ML BAG IV ONE ×2 (10:45→16:55)
--- NOTE | 2022-01-24 10:54 | P.PN ---
Subjective Date of Service: 01/24/22 Chief Complaint: Respiratory failure patient on a ventilator Patient is doing well hemodynamically stable unable to wean off the ventilator yesterday we will try again after diuresis Review of Systems is unable to be obtained Physical Examination - Vital Signs Temperature: 97.4 F Blood Pressure: 130/85 Pulse: 95 Respirations: 19 Pulse Ox (%): 93 - Physical Exam General: Alert, Cooperative Respiratory: Clear to auscultation bilaterally, Diminished Cardiovascular: No edema, Regular rate/rhythm - Studies Microbiology Data (last 24 hrs): 01/17/22 01:20 Blood - Blood Aerobic Blood Culture - Final 01/17/22 01:20 Blood - Blood Blood Culture Gram Stain - Final 01/17/22 01:20 Blood - Blood Anaerobic Blood Culture - Final No growth in 5 days. Assessment And Plan - Current Problems (Diagnosis) (1) Respiratory failure Current Visit: Yes Status: Acute Plan: Patient admitted with respiratory failure currently stable alert responsive start weaning her off from the ventilator to diuresis labs chemistries reviewed white count is declining blood gases satisfactory chest x-ray reviewed patient has underlying diastolic function and got 2 boluses yesterday Qualifiers: Chronicity: unspecified
[2022-01-24 12:01] LABS: Blood Gas Oxyhemoglobin 93.2 % (94-97); Blood O2 Saturation 96.4 % (92-98.5)
--- NOTE | 2022-01-24 12:14 | PN ---
Date of Progress Note: 01/24/2022 Subjective: The patient was seen this morning for followup. No new complaints or problems reported by nursing staff. She remains on ventilator. Objective: Vital Signs: Reviewed. Intake, output records reviewed. HEENT: Unremarkable. Lungs: Clear to auscultation. Heart: Sounds normal. Abdomen: Soft. Bowel sounds normal. No guarding, rigidity, tenderness, distention. Extremities: No leg edema. Laboratory Data: White count 12.7, hemoglobin 9.8, platelets 179. Potassium was 2.9 this morning, and after correction, repeat potassium came back 3.8. Impression: 1. Acute respiratory failure with hypercapnia. 2. Anemia due to acute blood loss. 3. Hypokalemia. 4. Chronic diastolic heart failure, with acute exacerbation. 5. Left hip fracture. Plan: We will go ahead and continue to replace potassium per electrolyte replacement protocol. Magnesium is low. We will replace that, and this afternoon, we will repeat potassium and magnesium again. Depending on further replacement, decision will be made. We will continue to follow with Dr. Paris for ventilator management. She is tolerating morphine 1 mg dose very well without any drop in the blood pressure, so we will continue to use that. She has Dobbhoff tube and tolerating feeding at 30 cc/hour and we will discontinue IV fluid. The patient's son and were present in ICU waiting room and details were discussed with them. Continue Lovenox for DVT prophylaxis. GAYLE/MODL Voice ID: [id number] Report ID: [id number] RADHA
[2022-01-24 15:27] LABS: Magnesium 1.8 mg/dL (1.8-2.4)
[2022-01-24] MEDS: HYDROCODONE/APAP 5/325 MG TAB PO SCH ×2 (18:25→21:52)
[2022-01-24] MEDS: ATORVASTATIN 10 MG TAB PO SCH (21:52)
[2022-01-25] MEDS: PIPER TAZO 3.375 GM in NA CHLORIDE 0.9% 100 ML IV SCH ×3 (00:48→17:14)
[2022-01-25 03:23] LABS: Absolute Lymphocytes (CBC) 0.7 K/uL (0.7-4.9); Lymphocytes % 6.3 % (15.3-44.8); MCV 92.5 fL (80-100); MPV 8.3 fL (7.6-11.3); RBC Red Blood Cell Count 3.13 M/uL (3.86-4.86)
[2022-01-25 03:41] LABS: Magnesium 2.2 mg/dL (1.8-2.4); Phosphorus 3.1 mg/dL (2.5-4.9); Potassium 3.7 mmol/L (3.5-5.1)
[2022-01-25] MEDS: SOTALOL HCL 80 MG TAB PO SCH ×2 (05:49→17:14)
[2022-01-25] MEDS: LEVOTHYROXINE SOD 0.1 MG TAB PO SCH (05:49)
[2022-01-25] MEDS ORDERED: KCL 20 MEQ/100 mL IVPB 20 MEQ/100 ML BAG IV SCH (06:00)
[2022-01-25] MEDS: ENSURE ENLIVE 237 ML CAN PO SCH ×2 (07:01→21:00)
[2022-01-25] MEDS: BRINZOLAMIDE OPTH SCH ×2 (08:03→21:00)
[2022-01-25] MEDS: HYDROCODONE/APAP 5/325 MG TAB PO SCH ×2 (08:04→21:22)
[2022-01-25] MEDS: AMLODIPINE 2.5 MG TAB PO SCH (08:05)
[2022-01-25] MEDS: FAMOTIDINE 20 MG/2 ML VIAL IV SCH ×2 (08:05→21:23)
[2022-01-25] MEDS: ENOXAPARIN 30 MG/0.3 ML SQ SCH (08:06)
[2022-01-25] MEDS: FUROSEMIDE 20 MG/ 2ML VIAL IV SCH (08:06)
--- NOTE | 2022-01-25 08:45 | RAD REPORT ---
EXAM DESCRIPTION: RAD - Chest Single View - 01/25/2022 6:23 am CLINICAL HISTORY: VENTILATED Chest pain. COMPARISON: Chest Single View dated 01/24/2022; Chest Single View dated 01/23/2022; Chest Single Vie w dated 01/23/2022; Chest Single View dated 01/23/2022 FINDINGS: Portable technique limits examination quality. Tip of the enteric tube is not clearly seen on this study and may have been removed. Enteric tube janay cends into the stomach. Left-sided PICC line has tip in the SVC. Moderate bilateral pulmonary opaciti es are seen with bilateral pleural effusions and moderate cardiomegaly a likely indicating CHF. IMPRESSION: Mild worsening in lung aeration seen since comparative study. Nonvisualization of the endotracheal tube.
[2022-01-25] MEDS: OPTH OPTH SCH (09:00)
[2022-01-25] MEDS: TIMOLOL 0.5% OPTH SCH (09:00)
[2022-01-25] MEDS: SODIUM BICARB 325 MG TAB PO SCH ×2 (09:03→21:22)
[2022-01-25] MEDS: MORPHINE 2 MG/ML SYR IV PRN (12:33)
--- NOTE | 2022-01-25 14:50 | PN ---
Date of Progress Note: 01/25/2022 Subjective: The patient was seen this morning for followup. She was in ICU on nasal cannula oxygen. She was extubated yesterday and has remained stable. She is maintaining adequate oxygenation. Hem odynamically, she is stable. Her pain is well controlled with current pain medication and she cuca cruz has Dobhoff tube that we are using it for the feeding purpose and she is tolerating that very wel l. Yesterday, she had some trouble swallowing water, so this was soon after extubation and nursing s taff will try again today considering she is lot more alert today compared to yesterday. Objective: Vital Signs: Reviewed. HEENT: Examination unremarkable. Lungs: Clear to auscultation. No wheezing. No rales. Heart: Sounds normal. Abdomen: Soft. Bowel sounds normal. No guarding, rigidity, tenderness, distention. Bowel sounds n ormoactive. Extremities: No leg edema. Laboratory Data: White count 11.5, hemoglobin 9.7, platelets 150. Sodium 137, potassium 3.7, chlori de 99, bicarb 37, BUN 22, creatinine 0.34, glucose 105, magnesium 2.2. Impression: 1.Left hip fracture. 2.Anemia due to acute blood loss. 3.Chronic diastolic heart failure with acute exacerbation. 4.Hyponatremia. Plan: We will go ahead and continue current Dobhoff tube feeding. We will continue current pain med ication. The patient seems to be tolerating that very well. Hemodynamically, she is stable. Contin ue current DVT prophylaxis with Lovenox. Repeat blood work tomorrow morning and the patient is medic ally stable for transfer out of ICU to regular medical room. See copy of transfer order for details. The patient's was in the ICU waiting room and details were discussed with him as well. GAYLE/MODL Voice ID: [id number] Report ID: [id number]
[2022-01-25 21:03] VITALS: O2SAT 96
[2022-01-25] MEDS: ATORVASTATIN 10 MG TAB PO SCH (21:23)
[2022-01-26] MEDS: PIPER TAZO 3.375 GM in NA CHLORIDE 0.9% 100 ML IV SCH ×4 (00:31→23:59)
[2022-01-26] MEDS: LEVOTHYROXINE SOD 0.1 MG TAB PO SCH (05:41)
[2022-01-26] MEDS: SOTALOL HCL 80 MG TAB PO SCH ×2 (05:41→16:55)
[2022-01-26 06:49] LABS: Magnesium 1.8 mg/dL (1.8-2.4); Potassium 3.3 mmol/L (3.5-5.1)
[2022-01-26 07:06] LABS: Absolute Lymphocytes (CBC) 0.8 K/uL (0.7-4.9); Hematocrit 33.8 % (36.0-45.0); Lymphocytes % 5.8 % (15.3-44.8); MCV 92.7 fL (80-100); MPV 9.1 fL (7.6-11.3); RBC Red Blood Cell Count 3.64 M/uL (3.86-4.86)
[2022-01-26] MEDS: TIMOLOL 0.5% OPTH SCH (09:00)
[2022-01-26] MEDS: OPTH OPTH SCH (09:00)
[2022-01-26] MEDS ORDERED: POTASSIUM 25 MEQ EFFERV TAB PO ONE (09:00)
[2022-01-26] MEDS: BRINZOLAMIDE OPTH SCH ×2 (09:00→20:41)
[2022-01-26] MEDS: FUROSEMIDE 20 MG/ 2ML VIAL IV SCH (10:07)
[2022-01-26] MEDS: ENOXAPARIN 30 MG/0.3 ML SQ SCH (10:08)
[2022-01-26] MEDS: AMLODIPINE 5 MG TAB PO SCH (10:08)
[2022-01-26] MEDS: POTASSIUM CL SA 10 MEQ TAB PO SCH ×2 (10:08→20:41)
[2022-01-26] MEDS: FAMOTIDINE 20 MG/2 ML VIAL IV SCH ×2 (10:08→20:43)
[2022-01-26] MEDS: HYDROCODONE/APAP 5/325 MG TAB PO SCH ×2 (10:08→20:42)
[2022-01-26] MEDS: SODIUM BICARB 325 MG TAB PO SCH ×2 (10:08→20:42)
[2022-01-26] MEDS: ENSURE ENLIVE 237 ML CAN PO SCH ×2 (10:09→20:41)
[2022-01-26] MEDS ORDERED: POTASSIUM CL SA 10 MEQ TAB PO ONE (17:00)
[2022-01-26] MEDS: ATORVASTATIN 10 MG TAB PO SCH (20:42)
--- NOTE | 2022-01-26 23:03 | PN ---
Date of Progress Note: 01/26/2022 Subjective: Patient was seen this morning for followup. She was on the medical floor. Her was with her at bedside. She was on nasal cannula oxygen. Overall, she feels better. No new compla ints or problems reported. Yesterday she ate about 50% of her meal as reported by patient's . She was on Dobhoff tube feeding at 30 cc/hour. This morning when I saw her, we decided to remove t he tube and tube feeding and encouraged her to eat orally. Objective: Vital Signs: Reviewed. HEENT: Unremarkable. Lungs: Clear to auscultation. Heart: Sounds normal. Abdomen: Soft. Bowel sounds normal. No guarding, rigidity, tenderness, or distention. Extremities: No leg edema. Laboratory Data: White count 13.3, hemoglobin 11.2, and platelets 141. Sodium 138, potassium 3.3, c hloride 94, bicarb 37, BUN 21, creatinine 0.40, glucose 109, and magnesium 1.8. Impression: 1.Left hip fracture. 2.Hypertension. 3.Chronic diastolic heart failure with acute exacerbation. 4.Anemia due to acute blood loss. 5.Hypokalemia. 6.Acute respiratory failure with hypercapnia. Plan: We will go ahead and replace electrolytes per protocol. Continue current empiric antibiotic. Continue oxygen replacement therapy. We will remove Dobhoff tube and patient was encouraged to eat all her 3 meals and use nutritional supplement. Blood pressure was elevated and I have increased dos e of amlodipine from 2.5 mg to 5 mg daily. Social Service consultation was requested for discharge planning and it is recommended for patient to go to inpatient rehab if she is accepted. I will see h er tomorrow for followup. GAYLE/MODL Voice ID: [id number] Report ID: [id number]
[2022-01-27] MEDS: SOTALOL HCL 80 MG TAB PO SCH (05:49)
[2022-01-27] MEDS: LEVOTHYROXINE SOD 0.1 MG TAB PO SCH (05:49)
[2022-01-27 05:51] LABS: Magnesium 1.7 mg/dL (1.8-2.4); Potassium 3.1 mmol/L (3.5-5.1)
[2022-01-27 06:47] VITALS: TEMP 97.9
[2022-01-27 08:02] VITALS: BP 190/81
[2022-01-27] MEDS: HYDROCODONE/APAP 5/325 MG TAB PO SCH (08:16)
[2022-01-27] MEDS: AMLODIPINE 5 MG TAB PO SCH (08:16)
[2022-01-27] MEDS: POTASSIUM CL SA 10 MEQ TAB PO SCH (08:17)
[2022-01-27] MEDS: BRINZOLAMIDE OPTH SCH (08:17)
[2022-01-27] MEDS: SODIUM BICARB 325 MG TAB PO SCH (08:17)
[2022-01-27] MEDS: OPTH OPTH SCH (08:18)
[2022-01-27] MEDS: ENOXAPARIN 30 MG/0.3 ML SQ SCH (08:18)
[2022-01-27] MEDS: ENSURE ENLIVE 237 ML CAN PO SCH (08:18)
[2022-01-27] MEDS: TIMOLOL 0.5% OPTH SCH (08:18)
[2022-01-27] MEDS ORDERED: POTASSIUM CL SA 10 MEQ TAB PO ONE (09:00)
[2022-01-27] MEDS ORDERED: FUROSEMIDE 20 MG TABLET PO SCH (09:00)
[2022-01-27] MEDS ORDERED: MAGNESIUM OXIDE 400 MG TAB PO SCH (09:00)
[2022-01-27] MEDS ORDERED: FAMOTIDINE 20 MG TAB PO SCH (09:00)
[2022-01-27] MEDS ORDERED: MAGNESIUM SULFATE 1 gm IVPB 1 GM/100 ML BAG IV ONE (09:00)
--- NOTE | 2022-01-27 20:45 | DS ---
Date of Discharge: 01/27/2022 Disposition: Discharged to go to inpatient rehab. Physical Examination: HEENT: Unremarkable. Lungs: Clear to auscultation. Heart: Sounds normal. Abdomen: Soft. Bowel sounds normal. No guarding, rigidity, tenderness, or distention. Extremities: No leg edema. Laboratory Data: Upon admission; white count 14.6, hemoglobin 11.6, platelets 132. Lowest hemoglobin was 6.9 on 01/19/2022, hemoglobin 11.2, platelets 131. Initial chemistry; sodium 123, potassium 2.7, chloride 86, bicarb 27, BUN 19, creatinine 0.56, glucose 144, magnesium 1.6, triglyceride 58. Chemistry today; sodium 140, potassium 3.1, chloride 100, bicarb 35, BUN 20, creatinine 0.41, glucose 110, magnesium 1.7. Discharge Medications/instructions: See copy of current medication list and transfer order and transfer MAR. Hospital Course: This is an 81-year-old female patient admitted to the hospital with complaints of weakness. Please see dictated H and P for more information. The patient was admitted to the hospital with generalized weakness. She did not have any free fall as she was coming out of the bathroom with her 's help. Because of generalized weakness, she could not walk, so had to slowly get her down to the floor and then she was not able to get up, so she was brought into emergency room. After her evaluation in the ER, she was admitted to the hospital with hyponatremia. Corrected hyponatremia with IV fluid normal saline and the patient started complaining of some hip pain, so hip x-ray was ordered, which showed evidence of intertrochanteric fracture of the left hip. Dr. Savage was consulted and the patient also started to have trouble with acute respiratory failure with hypercapnia requiring BiPAP therapy. Dr. Paris from Pulmonary was consulted. Once we stabilized her condition and the patient was taken to surgery and after surgery, she was brought into ICU. The patient remained intubated after surgery and Dr. Paris managed the ventilator and successfully extubated her. While she was on ventilator, she received Dobhoff tube feeding, which was continued up until yesterday. The patient is not tolerating diet very well. Physical Therapy was consulted. She is participating well with physical therapy. The patient was very sensitive to pain medication and it caused drop in her blood pressure, but she is tolerating current oral pain medication as well as 1 mg of IV morphine. She has tolerated that without any significant drop in the blood pressure. Inpatient Rehab was consulted and the patient was accepted to go today and she was transferred with all current orders in stable condition. Final Diagnoses: 1. Acute respiratory failure with hypoxia and hypercapnia. 2. Hyponatremia. 3. Left hip intertrochanteric fracture. 4. Hypokalemia. 5. Hypomagnesemia. 6. Hypothyroidism. 7. Impaired fasting glucose. 8. Hypertension. 9. Hyperlipidemia. 10. Diverticulosis. 11. Osteoarthritis multiple sites. 12. Osteoporosis. 13. Decubitus ulcer, right buttock, stage II. GAYLE/MODL Voice ID: [id number] Report ID: [id number] MTDD
--- NOTE | 2022-01-28 18:08 | P.PN ---
Subjective Date of Service: 01/26/22 Chief Complaint: s/p IMN left hip Subjective: Working w/ PT pain controlled Physical Examination - Vital Signs Temperature: 97.9 F Blood Pressure: 190/81 Pulse: 98 Respirations: 18 Pulse Ox (%): 95 - Physical Exam General: Alert, In no apparent distress Musculoskeletal: Other (LLE: dressing c/d/i; mild sanguinous drainage over the proximal aspect of the dressing; no significant thigh swelling; neurovascular tact distally) Assessment And Plan - Plan Ms Valdes is an 81-year-old female status post left hip nailing -Patient is mobilizing with physical therapy; may be weightbearing as tolerated in her left lower extremity -Lovenox for DVT prophylaxis -Await possible inpatient rehab admission
== END 2022-01-27 09:35 | DRG 981 ==
LOC: ER 00:11 → ERHOLD 03:32 → 2ND 09:02 → 3RD-ICU 01-22 12:00 → 2ND 01-25 12:45
PROVIDERS: ADMIT Internal Medicine; ATTEND Internal Medicine
PROC: 30233N1 Transfusion of Nonautologous Red Blood Cells into Peripheral Vein, Percutaneous Approach (ICD-10-PCS; 2022-01-18)
PROC: 5A1945Z Respiratory Ventilation, 24-96 Consecutive Hours (ICD-10-PCS; 2022-01-22)
PROC: 0BH17EZ Insertion of Endotracheal Airway into Trachea, Via Natural or Artificial Opening (ICD-10-PCS; 2022-01-22)
PROC: 0QS706Z Reposition Left Upper Femur with Intramedullary Internal Fixation Device, Open Approach (ICD-10-PCS; principal; 2022-01-22 11:00)
PROC: 02H633Z Insertion of Infusion Device into Right Atrium, Percutaneous Approach (ICD-10-PCS; 2022-01-23)
DX: J96.01 Acute respiratory failure with hypoxia (principal); I50.33 Acute on chronic diastolic (congestive) heart failure; S72.142A Displaced intertrochanteric fracture of left femur, initial encounter for closed fracture; E87.1 Hypo-osmolality and hyponatremia; D62 Acute posthemorrhagic anemia; J96.02 Acute respiratory failure with hypercapnia; I11.0 Hypertensive heart disease with heart failure; G89.29 Other chronic pain; M54.9 Dorsalgia, unspecified; E87.6 Hypokalemia; E83.42 Hypomagnesemia; D72.829 Elevated white blood cell count, unspecified; I27.20 Pulmonary hypertension, unspecified; E03.9 Hypothyroidism, unspecified; E78.5 Hyperlipidemia, unspecified; M19.90 Unspecified osteoarthritis, unspecified site; D69.6 Thrombocytopenia, unspecified; K57.90 Diverticulosis of intestine, part unspecified, without perforation or abscess without bleeding; M19.09 Primary osteoarthritis, other specified site; M81.0 Age-related osteoporosis without current pathological fracture; L89.151 Pressure ulcer of sacral region, stage 1; I48.0 Paroxysmal atrial fibrillation; L89.312 Pressure ulcer of right buttock, stage 2; F17.200 Nicotine dependence, unspecified, uncomplicated; R73.01 Impaired fasting glucose; Z66 Do not resuscitate; Z23 Encounter for immunization; Z78.1 Physical restraint status; Z90.49 Acquired absence of other specified parts of digestive tract; Z79.899 Other long term (current) drug therapy; Z90.710 Acquired absence of both cervix and uterus; Z20.822 Contact with and (suspected) exposure to COVID-19
CPT/HCPCS: 0240U; 36415; 36569; 51702; 71045; 72192; 73521; 74018; 80048; 80061; 80076; 80202; 81003; 81015; 82805; 83605; 83690; 83735; 83880; 83935; 84100; 84132; 84300; 84439; 84443; 84484; 85014; 85018; 85025; 85610; 86850; 86900; 86901; 87040; 87205; 90471; 93005; 93306; 94002; 94003; 94660; 94760; 97161; 97530; 99285; A4216; J1650; J1940; J2250; J2270; J2310; J2370; J2405; J2543; J2920; J3010; J3370; J3475; J3480; J7030; J7042; J7050; J7614; J7644; P9016; Q2035

== ENCOUNTER 2022-01-27 08:09 | Inpatient (IN) | payer OTHER, BC ==
--- OUTSIDE RECORDS SUMMARY | 2022-01-27 09:46 | XMS REPORT | Continuity of Care Document ---
:1940 Author Organization [facility] t Address [address] [place] [address] Care Team Providers Name Role Phone Asked, [...] Stop Date Quantity Comments Source History SDOH [facility] Drinks History [facility] B[facility] Alcohol intake 2020-01-31 2020-01-31 Lifetime [facility] 00:00:00 00:00:00 non-drinker Hospital (finding) History [facility] 2020-01-29 2020-01-29 1 [facility] Alcohol Frequency 00:00:00 00:00:00 Hospita l Tobacco use and 2020-01-26 2020-01-26 Smokeless tobacco [facility] exposure 00:[facility]:00 [facility]:00 non-user Hospital Sex Assigned At [birth year] [facility]00 Hospital Smoking Status Start Date Stop Date Source Never smoked tobacco [facility] Medications Ordered Filled Start Stop Current Ordering Indication Dosage Frequency Signature Comments Components Source Medication Medication Date Date Medication? Clinician (SIG) Name Name amLODIPine 2019-03 Yes 5mg QD Take 5 mg [facility] (NORVASC) 5 1-[address] mg tablet 15:45: daily. Hospit a 53 l acetaminoph 2019-03 Yes 14890 1{tbl} Q.52130321 Take 1 [facility] en-codeine -[id number] (TYLENOL 15:45: 3D mouth [...] 53 daily. l sodium 2019-03 Yes 1g Q.25333019 Take 1 g M [facility] chloride 1 -24 [id number] by mouth [address] gram tablet 15:45: [...] Q24H Take 4 mg [facility] (ZANAFLEX) -[address] 4 MG tablet 15:45: daily as [facility] spita 53 needed for l muscle spasms. triamcinolo 2019-03 Yes Q.5D Apply Metho di ne 1-[address] (KENALOG) 15:45: 2 (two) Hospi ta 0.1 % cream 53 times a l day. latanoprost 2019-03 Yes 1[drp] QD Administer [facility] (XALATAN) -[address] 0.005 % 15:45: [...] B-12) 500 53 daily. l MCG tablet amLODIPine 2019-03 Yes 5mg QD Take 5 mg [facility] (NORVASC) 5 -[address] mg tablet 15:45: daily. Hospit a 53 l acetaminoph 2019-03 Yes [id number] 1{tbl} Q.88116968 Take 1 [facility] en-codeine 03-[id number] (TYLENOL 15:45: 3D mouth 3 Hospit a WITH 53 (three) l CODEINE #3) times a 300-30 mg day as per tablet needed for moderate pain .acute pain. atorvastati 2019-03 Yes 10mg QD Take 10 mg [facility] n (LIPITOR) 1-[address] 10 mg 15:45: daily. Hospita tablet 53 l brinzolamid 2019-03 Yes 1[drp] Q.5D Administer [facility] e (AZOPT) 1 1-[address] % 15:45: the right Hospita ophthalmic 53 eye 2 l suspension (two) times a day. carvediloL 2019-03 Yes 25mg Q.5D Take 25 mg M [facility]i (COREG) 25 1-[address] MG tablet 15:45: [...] 53 daily. l sodium 2019-03 Yes 1g Q.71255610 Take 1 g M [facility]i chloride 1 1-24 [id number] mouth [address] gram tablet 15:45: [...] Date Status Commen ts Source Name Name PFIZER COVID-19 MRNA 2020-04-26 Completed [facility] 00:00:00 Hospital PFIZER COVID-19 MRNA 2020-04-26 Completed [facility] VACC[facility]ATION 00:00:00 Hospital PFIZER COVID-19 MRNA 2020-04-05 Completed [facility] VACCINATION 00:00:00 Hospital PFIZER COVID-19 MRNA 2020-04-05 Completed [facility] VACCINATION 00:00:00 Hospital Procedures This patient has no known procedures. Plan of Care Planned Activity Planned Date Details Comments Source Future Scheduled 2022-01-17 HEPATITIS B VACCINES Met [facility] Test 00:13:59 (1 of 3 - 3-dose series) [code = HEPATITIS B VACCINES (1 of 3 - 3-dose series)] Future Scheduled 2022-01-17 SHINGLES VACCINES (1 [facility] Test 00:13:59 of 2) [code = SHINGLES VACCINES (1 of 2)] Future Scheduled 2022-01-17 65+ P[facility]OCOCCAL [facility] Test 00:13:59 VACCINE (1 - PCV) [code = 65+ PNEUMOCOCCAL VACCINE (1 - PCV)] Future Scheduled 2022-01-17 COVID-19 VACCINE (3 - Me [facility] Test 00:13:59 Booster for Pfizer series) [code = COVID-19 VACCINE (3 - Booster for Pfizer series)] Future Scheduled 2022-01-17 INFLUENZA VACCINE [facility] Test 00:13:59 [code = INFLUENZA VACCINE] Future Scheduled 2022-01-17 HEPATITIS B VACCINES [facility] Test 00:13:59 (1 of 3 - 3-dose series) [code = HEPATITIS B VACCINES (1 of 3 - 3-dose series)] Future Scheduled 2022-01-17 SHINGLES VACCINES (1 [facility] Test 00:13:59 of 2) [code = SHINGLES VACCINES (1 of 2)] Future Scheduled 2022-01-17 65+ PNEUMOCOCCAL [facility] Test 00:13:59 VACCINE (1 - PCV) [code = 65+ PNEUMOCOCCAL VACCINE (1 - PCV)] Future Scheduled 2022-01-17 COVID-19 VACCINE (3 - [facility] Test 00:13:59 Booster for Pfizer series) [code = COVID-19 VACCINE (3 - Booster for Pfizer series)] Future Scheduled 2022-01-17 INFLUENZA VACCINE [facility] Test 00:13:59 [code = INFLUENZA VACCINE] Encounters Start End Encounter Admission Attending Care Care Encounter Source Date/Time Date/Time Type Type Clinicians Facility Department ID 2020-04-26 2020-04-26 Outpatient [facility] [id number] [place] 00:00:00 00:00:[address] 2020-04-05 2020-04-05 Outpatient [facility] [id number] [place] 00:00:00 00:00:[address] 2020-01-26 2020-01-30 Inpatient [place] [id number] [place] 00:00:00 00:00:[address] [place] [address] Results Test Description Test Time Test Comments Results Result Comments Source SARS-CoV-2 (COVID-19) RNA [Presence] in Respiratory sp ecimen by 2020-01-28 14:34:34 PAPA with probe detection Test Item Value Reference Range Interpretation Comme nts SARS-CoV-2 (COVID-19) RNA [Presence] in Respiratory Not detected No t-Detected specimen by PPAA with probe detection (test code = 56849-6) RALPH BOWMAN
[2022-01-27 10:06] VITALS: BMI 16.0
[2022-01-27] MEDS ORDERED: ACETAMINOPHEN 500 MG TAB PO PRN (11:23)
[2022-01-27] MEDS ORDERED: ALBUTEROL 2.5 MG/3 ML NEB SOL NEB PRN (11:25)
[2022-01-27] MEDS ORDERED: IPRATROPIUM BROM 0.5MG/2.5ML NEB PRN (11:31)
[2022-01-27] MEDS ORDERED: ALBUTEROL 2.5 MG/3 ML NEB SOL NEB SCH (12:00)
[2022-01-27] MEDS ORDERED: TRAMADOL HCL 50 MG TAB PO PRN (12:12)
[2022-01-27] MEDS: TRAMADOL HCL 50 MG TAB PO PRN ×2 (12:25→17:08)
[2022-01-27 12:48] LABS: Specific Gravity 1.011 (1.005-1.030); Urine Bilirubin NEGATIVE (Negative); Urine Blood Negative (Negative); Urine Clarity Turbid (Clear); Urine Color Light-Yellow (Yellow); Urine Glucose NEGATIVE (Negative); Urine Mucus Slight /HPF (None Seen); Urine Protein TRACE (Negative); Urine RBC <5 /HPF (None Seen); Urine Urobilinogen Normal (Normal)
[2022-01-27] MEDS: SOTALOL HCL 80 MG TAB PO SCH (17:08)
--- NOTE | 2022-01-27 19:26 | RAD REPORT ---
EXAM DESCRIPTION: RAD - Chest Single View - 01/27/2022 7:16 pm CLINICAL HISTORY: check placement of PICC line COMPARISON: Chest Single View dated 01/25/2022; Chest Single View dated 01/24/2022; Chest Single Vie w dated 01/23/2022; Chest Single View dated 01/23/2022 FINDINGS: The examination is significantly limited due to patient's positioning. The PICC may have b een retracted. It probably overlies the left brachiocephalic vein or proximal SVC. Lungs not well ass essed due to positioning. Cardiomegaly. Kyphoplasty changes. IMPRESSION: Difficult to confirm the PICC tip location due to patient positioning. It probably overl ies the proximal SVC or left brachiocephalic vein. Advancing by 3 cm could be considered for more opt imal positioning.
[2022-01-27] MEDS ORDERED: TIMOLOL MALEATE OPTH SCH (20:00)
--- NOTE | 2022-01-27 20:03 | HP ---
Date of Admission: 01/27/2022 Time Of Visit: 9:30 a.m. Chief Complaint: Left hip fracture status post surgical repair. Additional complaints to include re cent respiratory failure with hypercapnia requiring intubation, hypokalemia, hyponatremia, hypomagnes emia, anemia, and thrombocytopenia. History Of Present Illness: Ms. Valdes is an 81-year-old right-handed patient with multip le medical problems including osteoporosis and who had failure to thrive over several days and was ap parently on her commode when she fell off and at that point, there was not a report of pain, but she actually came in because of decompensation with failure to thrive. She was admitted to [facility] on the 17 of January and at that point, she was found to be in respiratory distress with re spiratory failure, treated initially with BiPAP and oxygen replacement and started on empiric antibio tics and white blood cell count was found to be elevated. She did require oxygen by nasal cannula, b ut was able to maintain 96% to 98%. As she was further evaluated with imaging, it was determined lina t she had, on the 19 of January, left-sided displaced intertrochanteric fracture of the proximal f emur with valgus angulation. Her orthopedic surgeon, Dr. Savage has evaluated the patient on the and determined she was an appropriate candidate for surgery and performed a cephalomedullary fixation of the left intertrochanteric fracture. She was placed on weightbearing as tolerated status. Howev er, she did decompensate respiratorily with acute respiratory failure requiring intubation after surg berry and was in the ICU. She managed to keep her oxygen saturation above 90%, around 90% and once she was extubated on 3 L, she was sent to the acute care floor on the with oxygen via nasal cannula. She had a Dobhoff tube in place due to difficulty with swallowing after extubation on the , with in a day on the , the tube was removed and she was able to tolerate oral liquids and began to jacquelyn e oral fluid supplementation. Prior to her coming to the hospital, she ambulated with a rolling walker with some assistance from he r and she has been doing that for at least 6 months and she did require again some assistance to perform some of her activities of daily living. At this point, she is unable to transfer without maximum assistance, her upper and lower body dressing required maximal assistance, her toilet and ower transfer required maximum assistance, and ability to ambulate also required maximum assistance. As a result of that and her acute surgery along with her multiple medical issues, which include mult iple electrolyte derangements, which are being corrected in addition to respiratory failure requiring intubation and renal failure, she is determined to be an appropriate candidate for inpatient rehabil itation and is therefore admitted to the inpatient unit for physical and occupational therapy, in add ition to likely speech therapy as there may be some cognitive issues as well. She is an appropriate candidate given she is unable to at this point, be home and requires a very high level of care that i s not able to be provided in long term. Past Medical History: As noted, in addition to hypothyroidism, impaired fasting glucose, hyponatremi a, hypertension, dyslipidemia, diverticulosis, osteoarthritis, anemia, myelodysplastic syndrome, and osteoporosis. Past Surgical History: Cataract surgery, cholecystectomy, hysterectomy, and back surgery. Family History: Hypertension and stroke in father who was . Mother with cancer and gallblad juliette, also . Sister had pancreatic cancer and hypertension and is . Social History: The patient lives with her at home. He is somewhat frail and unable to prov jada a lot of assistance for her. She has no alcohol, tobacco, or IV drug use. Allergies: NO KNOWN DRUG ALLERGIES. Home Medications: Atorvastatin 10 mg daily, Tylenol 3 times daily as needed for chronic back pain, w hich is the reason she uses a walker, amlodipine 2.5 mg daily, Caltrate plus D 1 tablet twice daily, levocetirizine 5 mg daily for allergies, levothyroxine 100 mcg daily, Metamucil gummies 3 daily, meto prolol 25 mg 2 times daily, losartan 100 mg daily, sodium chloride 1 g 3 times daily, Bactrim 80/400 one by mouth daily for the prevention of recurrent urinary tract infections and she has been on that for several years, and Tizanidine 4 mg daily at bedtime. Review of Systems: She has noted chronic back pain and now some weakness in the lower extremities. She does have an are a of skin breakdown around stage 1-2 in the buttock region and no significant breakdown on her heels. She has mild shortness of breath on oxygen via nasal cannula. She has some bruising noted on the f selena, likely related to her intubation. She has otherwise no psychiatric issues, no active genitourin arnoldo issues, and no gastrointestinal issues. Physical Examination: Vital Signs: Blood pressure 172/77, pulse 84, respiratory rate 18, temperature is 97.7, and oxygen s aturation 98%. General: Ms. Valdes is resting in bed. She is frail and mildly cachectic. Otherwise, she does hav e some bruising just beneath the nose where nasal cannula is in place and to the left cheek. Extremities: She has some areas of hyperemia in the upper extremities in the forearms and otherwise she has surgical site that is intact in the left hip and there is trace edema in the right more than left lower extremity. Lungs: She has good air movement. Abdomen: Soft. Heart: Regular. Neurological: She is alert, oriented, and follows commands appropriately. She is aware of her situa tion including the fracture and her prior limitations in terms of her ability to mobilize. In terms of the upper extremity strength, she is symmetric 4/5 in the arms proximally and distally and in the left around 3-4 with pain limiting her ability to move the left leg. Right 4/5 proximally and distal ly. Sensory exam with stocking-glove loss to light touch and temperature. Coordination appears inta ct. Gait, she will be assessed with physical therapy and gait belt and walker. Laboratory Studies: White blood cell count yesterday 13.3, neutrophils 83.5, hemoglobin 11.2, hemato crit 33.8, and platelets 141. INR 1.03. Chemistries: Today sodium 140. Potassium 3.1, earlier yes terday it was 2.8 and she had potassium replacement. Carbon dioxide 35, anion gap 8.1, BUN 20, creat inine 0.41, glucose 110, calcium 9.2, magnesium 1.7. TSH 5.05, free T4 1.13. LDL cholesterol 32, HD L 62, cholesterol to HDL ratio 1.71, and lipase 52. Liver function studies unremarkable except direc t bilirubin slightly elevated to 0.3 and total bilirubin normal at 1. Urinalysis shows 3+ protein, 3 + ketones, otherwise unremarkable. On the , she was on vancomycin with a level of 1.2. COVID-19 test and influenza A and B tests are all negative. X-ray/Imaging: Last chest x-ray on 01/25/2022 shows mild worsening lung aeration. There is nonvisua lization of the endotracheal tube. There was a left-sided PICC line tip in the superior vena cava, m oderate bilateral pulmonary opacities with bilateral pleural effusion and moderate cardiomegaly, like ly indicating CHF. KUB from the showed a nonobstructive bowel gas pattern. Hip x-ray from the showed intramedullary skyler with cephalomedullary screw in the left femur. No evidence of immedia te hardware complications or acute fractures. The left hip is dislocated. Current Level Of Functioning: Currently for [id number]-vk-[id number] transfers, she requires maximum assistance for left lower extremity and trunk. She did multiple tod-gd-tgaek transfers with maximum assistance . She did stand pivot to chair with maximum assistance. She was able to scoot back in a chair with moderate assistance. She did maintain a poor standing balance with [employer] assisting requiring total ass istance. Rehabilitation Assessment And Plan: She is admitted to the rehabilitation unit with status post unil ateral hip fracture 10.16 and with orthopedic left lower extremity fracture 07. Her etiologic diagno sis is the intertrochanteric fracture of proximal left femur with significant valgus angulation. She does have multiple comorbid conditions including hypomagnesemia, hypokalemia, elevated white blood c ell count with left shift, hypothyroidism, thrombocytopenia, recent intubation for acute respiratory failure, and a stage 1-2 decubital ulcer in the sacrum measuring around 4 x 2 cm. Note, her risks of complication do include respiratory distress in addition to further failure, pneumonia, and congesti ve heart failure. She does have significant risk of falling, bleeding, worsening weakness, more skin breakdown, deep vein thrombosis, stroke, significant pain, pneumonia, more debility, liver dysfuncti on with elevated bilirubin and renal failure. She does not require isolation and she does not have a communicable disease. Active comorbid conditions present on admission: As noted above, she did have respiratory failure, c ongestive heart failure, bleeding, anemia, diffuse weakness, decubital ulcer in the sacral region, an d pneumonia. Those are addressed aggressively with medications as listed in her medication list. In addition, she is followed by her primary care physician, Dr. Ceballos while on the unit. Impact of comorbidities: Given her multiple comorbid conditions, she requires careful medical evalua tion on a daily basis and adjustment of medications as appropriate, which will include blood work for magnesium, potassium, calcium, electrolytes, for white blood cell count, for liver function and kidn ey function. In addition, she had x-ray to evaluate the potential for worsening congestive heart karlos lure or pneumonia. Also, urinalysis will be followed. In addition, the decubital ulcer will be foll owed by Wound Care and dressed appropriately. In addition, she was on long-term antibiotic for urina ry tract infection suppression and that will be continued. In addition risk for deep vein thrombosis will be addressed with Lovenox subcutaneously. Pain will be addressed with narcotic and muscle rela xant. Insomnia will be addressed with melatonin. Her constipation will be addressed with stool soft ener. Rehab specific plan: She is being admitted to the inpatient rehabilitation unit, which is a comprehe nsive unit and she will have medical care daily physical, occupational, and speech therapy. She will have those for 180 minutes, 5 of 7 days and note, the patient has a good understanding of her admiss ion to the rehabilitation unit and what it entails and the benefits from the interdisciplinary approa ch to rehabilitation. She has a potential to make great improvement and will need least physical and occupational, likely speech therapy along with nursing and physician evaluation on an ongoing basis in addition to wound care and her primary care physician attending her. She will have Nutrition Serv ices as well. Given the complex condition that the patient is in, she has a risk of further medical complications and therefore it is appropriate for her to be in the acute inpatient rehabilitation uni t and not a skilled facility or to be discharged home. Barriers to discharge: As noted, there are multiple prior to discharge, which do include respiratory failure, chronic anemia, decubital ulcer, risk of sepsis, infection, myocardial infarction, stroke, renal failure, and liver failure and those will be addressed as noted above. Length Of Stay: Around 14 days. Disposition: Expected to be home. Prognosis is fair at this point. Rehabilitation Goals: It is anticipated she will be able to go back home and ambulate with a rolling walker with jusrdfv-ml-fslhzlhd assistance, to be able to perform upper and lower body dressing with minimal assistance, to perform toileting and showering with minimum assistance, and to ambulate hous ehold distances with minimum assistance. I acknowledge that I personally performed a full physical examination on this patient as soon as she got to the unit and it was determined that she was able to withstand the therapy as outlined in the n ote above and she will have a detailed plan of her care completed by hospital day 4 of her hospitaliz ation based upon her preadmission screening history and physical and her therapeutic evaluations. AMILCAR Voice ID: [id number]
[2022-01-27] MEDS: HYDROCODONE/APAP 5/325 MG TAB PO SCH (21:03)
[2022-01-27] MEDS: ENSURE ENLIVE 237 ML CAN PO SCH (21:03)
[2022-01-27] MEDS: POTASSIUM CL SA 10 MEQ TAB PO SCH (21:03)
[2022-01-27] MEDS: FAMOTIDINE 20 MG TAB PO SCH (21:04)
[2022-01-27] MEDS: SODIUM BICARB 325 MG TAB PO SCH (21:04)
[2022-01-27] MEDS: ATORVASTATIN 10 MG TAB PO SCH (21:04)
[2022-01-27] MEDS: BRINZOLAMIDE OPTH SCH (21:05)
[2022-01-28] MEDS: LEVOTHYROXINE SOD 0.1 MG TAB PO SCH (05:13)
[2022-01-28] MEDS: SOTALOL HCL 80 MG TAB PO SCH ×2 (05:13→16:58)
[2022-01-28] MEDS: ENOXAPARIN 30 MG/0.3 ML SQ SCH (07:11)
[2022-01-28] MEDS: BRINZOLAMIDE OPTH SCH ×2 (07:12→20:17)
[2022-01-28] MEDS: HYDROCODONE/APAP 5/325 MG TAB PO SCH ×2 (07:25→20:16)
[2022-01-28] MEDS: FUROSEMIDE 20 MG TABLET PO SCH (07:27)
[2022-01-28] MEDS: FAMOTIDINE 20 MG TAB PO SCH ×2 (07:27→20:16)
[2022-01-28] MEDS: MAGNESIUM OXIDE 400 MG TAB PO SCH (07:27)
[2022-01-28] MEDS: SODIUM BICARB 325 MG TAB PO SCH ×2 (07:28→20:17)
[2022-01-28] MEDS: POTASSIUM CL SA 10 MEQ TAB PO SCH ×2 (07:28→08:00)
[2022-01-28] MEDS: AMLODIPINE 5 MG TAB PO SCH (07:28)
[2022-01-28] MEDS: ENSURE ENLIVE 237 ML CAN PO SCH (07:29)
[2022-01-28 07:56] LABS: Absolute Lymphocytes (CBC) 0.9 K/uL (0.7-4.9); Hematocrit 31.2 % (36.0-45.0); Lymphocytes % 5.3 % (15.3-44.8); MCV 93.8 fL (80-100); MPV 7.7 fL (7.6-11.3); RBC Red Blood Cell Count 3.33 M/uL (3.86-4.86)
[2022-01-28] MEDS ORDERED: POTASSIUM 25 MEQ EFFERV TAB PO SCH (08:00)
[2022-01-28] MEDS ORDERED: AMLODIPINE 5 MG TAB PO SCH (08:00)
[2022-01-28] MEDS: TIMOLOL MALEATE OPTH SCH (08:09)
[2022-01-28 08:14] LABS: Albumin 2.9 g/dL (3.4-5.0); Magnesium 2.1 mg/dL (1.8-2.4); Potassium 4.3 mmol/L (3.5-5.1); Prealbumin 10.3 mg/dL (20-40)
[2022-01-28 09:07] LABS: Basophilic Stippling 1+; Blood Morphology Comment NOTED (NOT SEEN); Platelet Estimate ADEQ
--- NOTE | 2022-01-28 10:21 | RAD REPORT ---
EXAM DESCRIPTION: RAD - Barium Swallow Modified - 01/28/2022 10:14 am CLINICAL HISTORY: dysphagia COMPARISON: Abdomen Pelvis W Contrast dated 01/25/2020 TECHNIQUE: The patient was given liquid, semi-solid and solid forms of barium. Lateral view fluorosc opic imaging was performed in conjunction with speech pathology service. FINDINGS: Laryngeal penetration: cleared Aspiration: no cough with thin liquid by cup and straw Pharyngeal residue: Vallecular Base of tongue weakness and swallow delay. Total fluoroscopy time: 2 minutes and 5 seconds
[2022-01-28] MEDS: LIDOCAINE 4% PATCH TOP SCH (10:35)
[2022-01-28] MEDS: TRAMADOL HCL 50 MG TAB PO PRN (11:32)
--- NOTE | 2022-01-28 12:44 | RAD REPORT ---
EXAM DESCRIPTION: RAD - Chest Single View - 01/28/2022 11:48 am CLINICAL HISTORY: PICC line placement COMPARISON: Chest Single View dated 01/27/2022; Chest Single View dated 01/25/2022; Chest Single Vie w dated 01/24/2022; Chest Single View dated 01/23/2022 FINDINGS: Portable chest was obtained following placement of a left upper extremity PICC line. The c atheter tip projects over the SVC.
[2022-01-28] MEDS: PIPER TAZO 3.375 GM in NA CHLORIDE 0.9% 100 ML IV SCH (16:57)
--- NOTE | 2022-01-28 17:29 | PN ---
Date of Progress Note: 01/28/2022 Reason: Back wound and left sacral wound. Subjective: The patient was on the acute floor and I saw her on 01/18 and made some orders for her w ounds and the patient is developing a new area on her back. I was asked to reevaluate the patient. The patient is awake and alert. No purulent discharge. No fever or chills. In the meantime, the emilia mcgraw had a broken left femur and underwent surgery and apparently she is on rehab for physical thera py. She is in no acute pain. No chest pain. No fever or chills. No purulent discharge. Review of Systems: Otherwise unremarkable. Physical Examination: Vital Signs: Stable. Afebrile. Back: Examination of the back wound reveals a stage II wound on the prominence of her thoracic spine on the right side of midline. No surrounding erythema, warmth, or edema. On the sacral region, the re is also a small stage II area with stage I as well with no surrounding erythema, warmth, and edema . Assessment: Stage II pressure ulcers on her back and sacral region. Recommendations: Nutritional optimization. Vitamins as ordered. Offloading and Dalia with foam dr vasquez. /MODL Voice ID: [id number] Report ID: [id number]
--- NOTE | 2022-01-28 18:08 | PN ---
Date of Progress Note: 01/28/2022 Subjective: The patient was seen this morning for followup. She was sitting in the wheelchair compl aining of some back pain. The patient remains on nasal cannula oxygen. Objective: Vital Signs: Reviewed. HEENT: Unremarkable. Lungs: Clear to auscultation. Heart: Sounds normal. Abdomen: Soft. Bowel sounds normal. No guarding, rigidity, tenderness, distention. Extremities: No leg edema. Laboratory Data: White count 17, hemoglobin 10.4, platelets 267. Sodium 141, potassium 4.3, chlorid e 102, bicarb 39, BUN 25, creatinine 0.49, glucose 124. Serum albumin 2.9. Impression: 1.Left hip fracture. 2.Anemia. 3.Mild nutrition. 4.Generalized weakness. 5.Debility. Plan: We will go ahead and request Dr. Lim to follow up on patient for decubitus ulcer. Originall y she had a decubitus ulcer stage II on her buttock region and now she has a dressing present over he r mid back. She has significant kyphosis and I have discussed details with Dr. Lim and requested h im to manage these areas. We will continue current nutritional supplement. The patient will have mo dified barium swallow test today. We will continue current pain medication. Continue current DVT pr ophylaxis and yesterday's chest x-ray results reviewed. We will repeat another chest x-ray for positioning of PICC line. I will see her tomorrow for followup. GAYLE/MODL Voice ID: [id number] Report ID: [id number]
[2022-01-28] MEDS ORDERED: NA CHLORIDE 0.9% 250 ML ONE (20:05)
[2022-01-28] MEDS: ATORVASTATIN 10 MG TAB PO SCH (20:17)
[2022-01-28 21:34] VITALS: O2SAT 99
[2022-01-29] MEDS: PIPER TAZO 3.375 GM in NA CHLORIDE 0.9% 100 ML IV SCH ×3 (00:26→16:39)
[2022-01-29] MEDS: SOTALOL HCL 80 MG TAB PO SCH ×2 (05:09→17:24)
[2022-01-29] MEDS: LEVOTHYROXINE SOD 0.1 MG TAB PO SCH (05:34)
[2022-01-29 06:09] LABS: Absolute Lymphocytes (CBC) 0.7 K/uL (0.7-4.9); Hematocrit 29.7 % (36.0-45.0); Lymphocytes % 3.9 % (15.3-44.8); MCV 93.3 fL (80-100); MPV 8.5 fL (7.6-11.3); RBC Red Blood Cell Count 3.19 M/uL (3.86-4.86)
[2022-01-29 06:24] LABS: Albumin 3.1 g/dL (3.4-5.0); Magnesium 2.2 mg/dL (1.8-2.4); Potassium 3.2 mmol/L (3.5-5.1); Prealbumin 10.7 mg/dL (20-40)
[2022-01-29] MEDS: ENOXAPARIN 30 MG/0.3 ML SQ SCH (07:23)
[2022-01-29] MEDS: LIDOCAINE 4% PATCH TOP SCH (07:28)
[2022-01-29] MEDS: HYDROCODONE/APAP 5/325 MG TAB PO SCH ×2 (07:28→18:22)
[2022-01-29] MEDS: MAGNESIUM OXIDE 400 MG TAB PO SCH (07:29)
[2022-01-29] MEDS: FAMOTIDINE 20 MG TAB PO SCH ×2 (07:29→19:37)
[2022-01-29] MEDS: FUROSEMIDE 20 MG TABLET PO SCH (07:36)
[2022-01-29] MEDS: BRINZOLAMIDE OPTH SCH ×3 (07:45→19:41)
[2022-01-29] MEDS ORDERED: ZINC SULFATE 220 MG CAP PO SCH (08:00)
[2022-01-29] MEDS ORDERED: ASCORBIC ACID 500 MG TABLET PO SCH (08:00)
[2022-01-29] MEDS: TIMOLOL MALEATE OPTH SCH (08:13)
[2022-01-29] MEDS: SODIUM BICARB 325 MG TAB PO SCH ×2 (08:14→19:37)
[2022-01-29] MEDS: AMLODIPINE 5 MG TAB PO SCH (08:18)
[2022-01-29] MEDS ORDERED: LOSARTAN POTASSIUM 50 MG TABLET PO SCH (10:00)
[2022-01-29] MEDS ORDERED: IPRATROPIUM BROM 0.5MG/2.5ML NEB PRN (10:00)
[2022-01-29] MEDS ORDERED: POTASSIUM CL SA 10 MEQ TAB PO ONE (10:00)
[2022-01-29] MEDS ORDERED: ALBUTEROL 2.5 MG/3 ML NEB SOL NEB PRN (10:00)
[2022-01-29] MEDS ORDERED: VANCOMYCIN 1 GM in NA CHLORIDE 0.9% 250 ML IVPB ONE (12:00)
--- NOTE | 2022-01-29 15:14 | RAD REPORT ---
EXAM DESCRIPTION: Peggy Noonan And Lat (2 Views)01/29/2022 2:15 pm CLINICAL HISTORY: Cough COMPARISON: January 28 FINDINGS: No significant change in mild bilateral pulmonary opacities. There may be a small right pleural effusion. Heart remains enlarged. Marked kyphosis. Cement has been placed into several vertebral body fractures. Several additional tho racic spine compression deformities IMPRESSION: No significant change in mild bilateral pulmonary opacities which may represent intersti tial pulmonary edema
--- NOTE | 2022-01-29 15:15 | RAD REPORT ---
EXAM DESCRIPTION: RADSinus 3/+ Views01/29/2022 2:15 pm CLINICAL HISTORY: leukocytosis FINDINGS: The sinuses appear clear
--- NOTE | 2022-01-29 15:42 | PN ---
Date of Progress Note: 01/29/2022 Subjective: The patient was seen this morning for followup. No new complaints or problems reported by patient. She was sitting in chair during physical therapy this morning. Her appetite is poor. Objective: Vital Signs: Reviewed. HEENT: Unremarkable. Lungs: Clear to auscultation. Heart: Sounds normal. Abdomen: Soft. Bowel sounds normal. No guarding, rigidity, tenderness, distention. Extremities: No leg edema. Laboratory Data: White count elevated today at 18.6, hemoglobin 10.1, platelets 255. Sodium 144, po tassium 3.2, chloride 103, bicarb 39, BUN 29, creatinine 0.46, glucose 102, albumin 3.1. Impression: 1.Hip fracture. 2.Acute respiratory failure with hypercapnia. 3.Hypertension. 4.Anemia. 5.Hypokalemia. Plan: We will go ahead and add losartan 25 mg daily for blood pressure control. Continue her amlodi pine. We will continue oxygen replacement therapy, and she was encouraged to eat and use nutritional supplement. We will replace potassium per order using oral potassium replacement. Continue Zosyn, and I will go ahead and add vancomycin. We will get x-ray of the sinuses to rule out any sinus infec tion considering she had Dobbhoff tube in place for few days while she was on the medical floor and a lso will repeat a chest x-ray today. Details and plan of treatment discussed with her. I will see her tomorrow for followup. GAYLE/MODL Voice ID: [id number] Report ID: [id number]
--- NOTE | 2022-01-29 16:00 | PN ---
Date of Progress Note: 01/29/2022 Time Of Service: 11 a.m. Subjective: Ms. Valdes is getting ready to have a bowel movement. She has no new complaints. She does say there is mild pain in the left hip fracture site. She had the displaced intertrochanteric f racture of the proximal femur in the left hip. There was valgus angulation and Orthopedic surgeon pe rformed cephalomedullary skyler fixation of the intertrochanteric fracture on the . She denies any issues with sleep. No other complaints. Review of Systems: She does have a stage II decubital ulcer in the sacral region. The heels are being offloaded. She d oes have some mild bruising below the nose and on the left cheek. Otherwise, mild myalgias and arthr algias and no other positives on her review of systems. Physical Examination: Vital Signs: Blood pressure 177/72, pulse of 90, respiratory rate 18, temperature 98.4, oxygen satur ation 99%. General: Ms. Valdes is lying in bed, in no acute distress. She does have, as noted, bruises below the nose and on left cheek. She has good hemostasis on the left hip fracture surgical site. Heels a re offloaded. No other positives on her exam. Laboratory Studies: White blood cell count did go up to 18.6 with neutrophils 87.6, hemoglobin is lo w at 10.1. She was seen by Dr. Ceballos, her primary care physician and is now on vancomycin 1 g every 1 8 hours. She is also on Zosyn 3.375 g every 8 hours. In addition, her chemistries show sodium of 14 4, potassium 3.2, chloride 103, carbon dioxide 39, BUN 29, creatinine 0.46, prealbumin is 10.7. X-ray/Imaging: She had a barium swallow study done yesterday. The study showed laryngeal penetratio n which cleared. There was aspiration. No cough with thin liquids by cup and straw. There was phar yngeal residue in the vallecular region of the base of the tongue. There was weakness and delay in s wallowing. Chest x-ray evaluating the placement of a left upper extremity PICC line. The catheter t ip was over in the superior vena cava.` Medications: Extra-strength Tylenol 500 mg every 6 hours, [place] 5/325 twice daily, Norvasc 5 mg jamie y, vitamin C 500 mg daily, Lipitor 10 mg at bedtime, Lovenox 30 mg subcutaneously daily, Pepcid 20 mg twice daily, Lasix 20 mg daily, Atrovent 0.5 mg nebulizer every 4 hours, Synthroid 0.1 mg daily, lid ocaine patch 1 patch daily, Cozaar 25 mg daily, magnesium oxide 400 mg daily, piperacillin/tazobactam 3.375 g every 8 hours, sodium bicarb 325 mg twice daily, sotalol 80 mg twice daily, Ultram 50 mg ever y 4 hours, vancomycin 1 g every 18 hours per protocol followed by the pharmacy service, zinc sulfate 250 mg daily. Current Functional Status: Currently, she ambulated 15 feet with maximum assistance using a rolling walker. She did have touchdown on the left lower extremity. She did tend to rotate her lower body t o the right during ambulation. She performed a bounce, postural control exercises with supervision, supine to sit transfers are maximum assistance for trunk and lower body assistance required. She did multiple sit to stand transfers with maximum assistance with a rolling walker. Progress toward rehabilitation goal: She is making slow progress at this point. She does have eleva feli white count, although afebrile and neutrophil shift. She is on multiple IV antibiotics. Chest x -ray did not mention pneumonia. She does have cultures pending from today, her urine on the w nothing so far. Assessment And Plan: Ms. Valdes is an 81-year-old with the left hip fracture, status post surgical repair who is making slow progress overall with physical and occupational therapy possibly due to her comorbidities which now include systemic infection, for which she is receiving vancomycin and Zosyn. White count has been elevated with neutrophil shift. She is followed by her primary care physician . She does have a stage II breakdown ulcer in the sacral region. She is followed by the Wound Care service including Dr. Zia Lim, who is making adjustments to the treatment of the wound which he in his note notes is a stage II decubital ulcer, for which she is receiving offloading, nutritional opt imization, vitamins including zinc has been ordered and there is Dalia with foam dressing applied as directed. Note, other comorbid conditions include hypertension, and she is on sotalol, furosemide, Norvasc. She has pain, treated with Saint Charles and Tylenol. Her wound is addressed with vitamins includi ng vitamin C and zinc and as noted of the foam application. Dyslipidemia, treated with Lipitor. Celestina p vein thrombosis risk reviewed with Lovenox. Respiratory obstructive disease treated with Atrovent nebulizer. Hypothyroidism treated with Synthroid. Comorbid that continue to impact rehabilitation process: Currently the most recent comorbid is a pot ential systemic infection, but cultures are pending and are negative, thus far. She is on multiple a ntibiotics. Her other comorbidity is malnutrition. She is on protein supplementation for anemia and iron supplementation as well. RACHELLE/KESHAWN Voice ID: [id number] Report ID: [id number]
[2022-01-29] MEDS: TRAMADOL HCL 50 MG TAB PO PRN (16:35)
[2022-01-29] MEDS: ATORVASTATIN 10 MG TAB PO SCH (19:37)
[2022-01-29] MEDS ORDERED: NYSTATIN PWDR 100000 UNIT/GM TOP SCH (20:00)
[2022-01-30] MEDS: PIPER TAZO 3.375 GM in NA CHLORIDE 0.9% 100 ML IV SCH (00:05)
[2022-01-30] MEDS: LEVOTHYROXINE SOD 0.1 MG TAB PO SCH ×2 (05:42→06:30)
[2022-01-30] MEDS: SOTALOL HCL 80 MG TAB PO SCH ×2 (05:43→06:00)
[2022-01-30] MEDS ORDERED: VANCOMYCIN 750 MG in NA CHLORIDE 0.9% 150 ML IVPB SCH (06:00)
[2022-01-30 06:12] LABS: Absolute Lymphocytes (CBC) 0.5 K/uL (0.7-4.9); Hematocrit 30.2 % (36.0-45.0); Lymphocytes % 3.4 % (15.3-44.8); MCV 94.4 fL (80-100); MPV 7.2 fL (7.6-11.3)
[2022-01-30 06:28] LABS: Potassium 2.2 mmol/L (3.5-5.1)
[2022-01-30 06:39] LABS: Arterial Blood Carboxyhemoglob 2.8 % (0-1.5); Blood Gas Oxyhemoglobin 94.9 % (94-97); Blood O2 Saturation 99.2 % (92-98.5)
[2022-01-30 07:09] VITALS: BP 171/77; TEMP 97
[2022-01-30] MEDS: BRINZOLAMIDE OPTH SCH ×2 (07:20→07:23)
[2022-01-30] MEDS: LIDOCAINE 4% PATCH TOP SCH (07:22)
[2022-01-30] MEDS: TIMOLOL MALEATE OPTH SCH (07:22)
[2022-01-30] MEDS ORDERED: FE SULF/FA/VIT B COMP & C TAB PO SCH (08:00)
[2022-01-30] MEDS ORDERED: TIMOLOL MALEATE 0.5% OPTH SCH (08:00)
[2022-01-30] MEDS ORDERED: OPTH OPTH SCH (08:00)
[2022-01-30] MEDS ORDERED: ENSURE HIGH PROTEIN 237 ML CAN PO SCH (12:00)
--- NOTE | 2022-01-30 14:22 | RAD REPORT ---
EXAM DESCRIPTION: CT - Head Brain Wo Cont - 01/30/2022 6:53 am CLINICAL HISTORY: Weakness COMPARISON: None. 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 FINDINGS: There is no acute hemorrhage, mass effect or midline shift. Jaimes-white differentiation is preserved. There is no hydrocephalus. There is no significant volume loss for age. The calvarium is intact. Orbits and globes are unremarkable. The paranasal sinuses are clear. Mastoid air cells are clear. IMPRESSION: No acute intracranial findings. Electronically signed by: Dayron Smith MD 01/30/2022 6:44 AM STENCIL CUTTER MACHINE Due to temporary technical issues with the PACS/Fluency reporting system, reports are being signed by the in house radiologists without review as a courtesy to insure prompt reporting. The interpreting radiologist is fully responsible for the content of the report.
--- NOTE | 2022-02-01 23:54 | DS ---
Date of Discharge: 01/30/2022 Disposition: The patient was discharged to go to acute medical floor. Physical Examination: General: The patient lying in bed with altered mental status. Does not respond to any painful stimu li, shallow breathing. HEENT: Unremarkable. Lungs: Bilateral shallow air entry. Heart: Sounds normal. Abdomen: Soft. Bowel sounds normal. No guarding, rigidity, tenderness, distention. Extremities: No leg edema. Laboratory Data: Today, white count 15.9, hemoglobin 10.1, platelets 299. Yesterday, white count wa s 18.6. Today, sodium 144, potassium 2.2, chloride 103, bicarb 38, BUN 17, creatinine 0.39, glucose 115, magnesium 2. Hospital Course: This is an 81-year-old pleasant female patient, who was admitted to rehab floor on 01/27/2022. The patient was getting physical therapy under guidance of Dr. Peralta. Last pain medi cation that she got was around 7 or 8 p.m. yesterday evening. Overnight, she did not get any pain me dications. This morning, nurse contacted and informed me that the patient was not responding like th e way she was yesterday and she had altered mental status. Respiratory therapist came by, evaluated her. We did a stat arterial blood gas, results reviewed. Stat CAT scan of the head was done, which was negative for any acute changes. The patient had agonal breathing and with this low potassium and respiratory failure problem, decision was made to transfer her from rehab floor to acute medical [facility] or. BiPAP was ordered and patient was ordered to be transferred to medical floor for further managem ent. Final Diagnoses: 1.Left hip intertrochanteric fracture. 2.Anemia. 3.Hypokalemia. 4.Acute respiratory failure with hypoxia and hypercapnia. 5.Hyponatremia. 6.Hypothyroidism. 7.Impaired fasting glucose. 8.Hypertension. 9.Hyperlipidemia. 10.Diverticulosis. 11.Osteoarthritis, multiple sites. 12.Osteoporosis. 13.Decubitus ulcer, right buttock, stage II. 14.Metabolic encephalopathy. GAYLE/MODL Voice ID: [id number] Report ID: [id number]
== END 2022-01-30 07:50 | disposition short-term general hospital (02) | DRG 559 ==
LOC: 5TH 09:43
PROVIDERS: ADMIT Internal Medicine; ATTEND Internal Medicine
PROC: 02HV33Z Insertion of Infusion Device into Superior Vena Cava, Percutaneous Approach (ICD-10-PCS; principal; 2022-01-28)
PROC: 5A09357 Assistance with Respiratory Ventilation, Less than 24 Consecutive Hours, Continuous Positive Airway Pressure (ICD-10-PCS; 2022-01-30)
DX: S72.142D Displaced intertrochanteric fracture of left femur, subsequent encounter for closed fracture with routine healing (principal); G93.41 Metabolic encephalopathy; J96.01 Acute respiratory failure with hypoxia; J96.02 Acute respiratory failure with hypercapnia; N39.0 Urinary tract infection, site not specified; Z68.1 Body mass index [BMI] 19.9 or less, adult; L89.102 Pressure ulcer of unspecified part of back, stage 2; L89.152 Pressure ulcer of sacral region, stage 2; L89.312 Pressure ulcer of right buttock, stage 2; M81.0 Age-related osteoporosis without current pathological fracture; I10 Essential (primary) hypertension; E78.5 Hyperlipidemia, unspecified; E03.9 Hypothyroidism, unspecified; E87.6 Hypokalemia; D69.6 Thrombocytopenia, unspecified; E83.42 Hypomagnesemia; D64.9 Anemia, unspecified; M19.09 Primary osteoarthritis, other specified site; G47.00 Insomnia, unspecified; G89.29 Other chronic pain; M54.9 Dorsalgia, unspecified; D72.829 Elevated white blood cell count, unspecified; K57.90 Diverticulosis of intestine, part unspecified, without perforation or abscess without bleeding; R53.81 Other malaise; R62.7 Adult failure to thrive; R73.01 Impaired fasting glucose; Z90.49 Acquired absence of other specified parts of digestive tract; Z79.890 Hormone replacement therapy; Z90.710 Acquired absence of both cervix and uterus; Z20.822 Contact with and (suspected) exposure to COVID-19
CPT/HCPCS: 36415; 70220; 70450; 71045; 71046; 74230; 80048; 81001; 82040; 82805; 82947; 83735; 84134; 85025; 87040; 87086; 87088; 92523; 92526; 92611; 94660; 97110; 97112; 97116; 97161; 97165; 97530; J1650; J2001; J2543; J3370; J7050; U0003

== ENCOUNTER 2022-01-30 08:17 | Inpatient (IN) | payer OTHER, BC ==
--- OUTSIDE RECORDS SUMMARY | 2022-01-30 08:22 | XMS REPORT | Continuity of Care Document ---
:1940 Author Organization [facility] t Address [address] [place] [address] Care Team Providers Name Role Phone Asked, [...] Stop Date Quantity Comments Source History SDOH [facility] Std Hospital Drinks History [facility] Alcohol Binge Hospital Alcohol intake 2020-01-31 2020-01-31 Lifetime Jew 00:00:00 00:00:00 non-drinker Hospital (finding) History [facility] 2020-01-29 2020-01-29 1 Jew Alcohol Frequency 00:00:00 00:00:00 Hospita l Tobacco use and 2020-01-26 2020-01-26 Smokeless tobacco [facility] exposure 00:00:00 [facility]:00:00 non-user Hospital Sex Assigned At [birth year] [facility] 00:00:00 00:00:00 Hospital Smoking Status Start Date Stop Date Source Never smoked tobacco [facility]spital Medications Ordered Filled Start Stop Current Ordering Indication Dosage Frequency Signature Comments Components Source Medication Medication Date Date Medication? Clinician (SIG) Name Name amLODIPine 2019-03 Yes 5mg QD Take 5 mg [facility] (NORVASC) 5 1-[address] mg tablet 15:45: daily. Hospit a [facility] l amLODIPine 2019-03 Yes 5mg QD Take 5 mg [facility] (NORVASC) 5 1-[address] mg tablet 15:45: daily. Hospit a 53 l acetaminoph 2019-03 Yes 10894 1{tbl} Q.70595561 Take 1 [facility] en-codeine 1-[id number] (TYLENOL 15:45: 3D mouth [...] 53 daily. l sodium 2019-03 Yes 1g Q.35398923 Take 1 g M [facility] chloride 1 1-24 [id number] mouth [address] gram tablet 15:45: 3D (three) Hos neftali 53 times a l day. sulfamethox 2019-03 Yes 1{tbl} QD Take 1 [facility] azole-trime 1-[address] thoprim 15:45: mouth Hospita (BACTRIM 53 daily. l DS) 800-160 mg per tablet timolol 2019-03 Yes 1[drp] QD Administer [facility] (TIMOPTIC) [address] 0.5 % 15:45: the right Hospita ophthalmic 53 eye daily. l solution tiZANidine 2019-03 Yes 4mg Q24H Take 4 mg [facility] (ZANAFLEX) [address] 4 MG tablet 15:45: [...] Hospit a 53 l acetaminoph 2019-03 Yes [id number] 1{tbl} Q.48354545 Take 1 [facility] en-codeine [id number] (TYLENOL 15:45: 3D mouth [...] 53 daily. l sodium 2019-03 Yes 1g Q.39251114 Take 1 g M [facility]i chloride 1 1-24 [id number] mouth [address] gram tablet 15:45: [...] 53 needed for l muscle spasms. triamcinolo 2019- Yes Q.5D Apply Metho di ne 1-[address] (KENALOG) 15:45: 2 (two) Hospi ta 0.1 % cream 53 times a l day. latanoprost 2019-03 Yes 1[drp] QD Administer [facility] (XALATAN) 1-[address] 0.005 % 15:45: the right Hospi ta ophthalmic 53 eye l solution nightly. cholecalcif 2020- Yes 2000U QD Take 2,000 [facility] matthew, 1-[address] vitamin D3, 15:45: mouth Hospi ta 1,000 unit 53 daily. l tablet cyanocobala 2019-03 Yes 500ug QD Take 500 M ethodi min 1-[address] (VITAMIN 15:45: mouth Hospita B-12) 500 53 daily. l MCG tablet acetaminoph 2019-03 Yes [id number] 1{tbl} Q.34382237 Take 1 [facility] en-codeine 1-[id number] (TYLENOL 15:45: 3D mouth [...] 53 daily. l sodium 2019-03 Yes 1g Q.42528819 Take 1 g M ethodi chloride 1 1-24 [id number] mouth [address] gram tablet 15:45: [...] Date Status Commen ts Source Name Name pic5 COVID-19 [facility] 2020-04-26 Completed Meth odist VACCINATION 00:00:00 [facility] PFIZER COVID-19 MRNA 2020-04-26 Completed Meth odist VACCINATION 00:00:00 [facility] PFIZER COVID-19 MRNA 2020-04-26 Completed Meth odist VACCINATION 00:00:00 [facility] COVID-19 MRNA 2020-04-05 Completed Meth odist VACCINATION 00:00:00 [facility] COVID-19 MRNA 2020-04-05 Completed Meth odist VACCINATION 00:00:00 [facility] PFIZER COVID-19 MRNA 2020-04-05 Completed Meth odist VACCINATION 00:00:00 Hospital Procedures This patient has no known procedures. Plan of Care Planned Activity Planned Date Details Comments Source Future Scheduled 2022-01-17 HEPATITIS B VACCINES [facility] Test 00:13:59 (1 of 3 - 3-dose series) [code = HEPATITIS B VACCINES (1 of 3 - 3-dose series)] Future Scheduled 2022-01-17 SHINGLES VACCINES (1 Met [facility] Test 00:13:59 of 2) [code = SHINGLES VACCINES (1 of 2)] Future Scheduled 2022-01-17 65+ PNEUMOCOCCAL [facility] Test 00:13:59 VACCINE (1 - PCV) [code = 65+ PNEUMOCOCCAL VACCINE (1 - PCV)] Future Scheduled 2022-01-17 COVID-19 VACCINE (3 - [facility] Test 00:13:59 Booster for Pfizer series) [code = COVID-19 VACCINE (3 - Booster for Pfizer series)] Future Scheduled 2022-01-17 INFLUENZA VACCINE [facility] Test 00:13:59 [code = INFLUENZA VACCINE] Future Scheduled 2022-01-17 HEPATITIS B VACCINES [facility] Hospital Test 00:13:59 (1 of 3 - 3-dose series) [code = HEPATITIS B VACCINES (1 of 3 - 3-dose series)] Future Scheduled 2022-01-17 SHINGLES VACCINES (1 [facility] Test 00:13:59 of 2) [code = SHINGLES VACCINES (1 of 2)] Future Scheduled 2022-01-17 65+ PNEUMOCOCCAL [facility] Test 00:13:59 VACCINE (1 - PCV) [code = 65+ PNEUMOCOCCAL VACCINE (1 - PCV)] Future Scheduled 2022-01-17 COVID-19 VACCINE (3 - Me [facility] Test 00:13:59 Booster for Pfizer series) [code = COVID-19 VACCINE (3 - Booster for Pfizer series)] Future Scheduled 2022-01-17 INFLUENZA VACCINE [facility] Test 00:13:59 [code = INFLUENZA VACCINE] Future Scheduled 2022-01-17 HEPATITIS B VACCINES [facility] Hospital Test 00:13:59 (1 of 3 - 3-dose series) [code = HEPATITIS B VACCINES (1 of 3 - 3-dose series)] Future Scheduled 2022-01-17 SHINGLES VACCINES (1 [facility] Hospital Test 00:13:59 of 2) [code = [...] Clinicians Facility Department ID 2020-04-26 2020-04-26 Outpatient [facility] [id number] [address] [place] 00:00:00 00:00:[address] 2020-04-05 2020-04-05 Outpatient [facility] [id number] [address] [place] 00:00:00 00:00:[address] 2020-01-26 2020-01-30 Inpatient [place], [facility] [id number] [address] [place] 00:00:00 00:00:[address] Results Test Description Test Time Test Comments Results Result Comments Source SARS-CoV-2 (COVID-19) RNA [Presence] in Respiratory sp ecimen by 2020-01-28 14:34:34 PAPA with probe detection Test Item Value Reference Range Interpretation Comme nts SARS-CoV-2 (COVID-19) RNA [Presence] in Respiratory Not detected No t-Detected specimen by [facility] with probe detection (test code = 01477-0) [facility]
[2022-01-30 10:41] VITALS: BMI 16.0
[2022-01-30] MEDS ORDERED: ACETAMINOPHEN 500 MG TAB PO PRN (10:59)
[2022-01-30] MEDS ORDERED: ALBUTEROL 2.5 MG/3 ML NEB SOL NEB PRN (11:00)
[2022-01-30] MEDS ORDERED: IPRATROPIUM BROM 0.5MG/2.5ML NEB PRN (11:09)
[2022-01-30] MEDS ORDERED: NA CHLORIDE 0.9% 0 ML ONE (11:14)
[2022-01-30] MEDS ORDERED: D5 0.9 NS 1,000 ML IV ONE (11:24)
[2022-01-30] MEDS: ENSURE HIGH PROTEIN 237 ML CAN PO SCH (11:28)
[2022-01-30] MEDS: KCL 20 MEQ/100 mL IVPB 20 MEQ/100 ML BAG IV SCH ×3 (11:30→15:43)
[2022-01-30] MEDS: D5 0.9 NS 1,000 ML IV SCH (11:30)
[2022-01-30] MEDS ORDERED: VANCOMYCIN 0.75 GM in NA CHLORIDE 0.9% 150 ML IVPB SCH (12:00)
[2022-01-30] MEDS: LIDOCAINE 4% PATCH TOP SCH (13:38)
[2022-01-30] MEDS: ENOXAPARIN 30 MG/0.3 ML SQ SCH (14:52)
[2022-01-30] MEDS: PIPER TAZO 3.375 GM in NA CHLORIDE 0.9% 100 ML IV SCH (17:24)
[2022-01-30] MEDS: TRAMADOL HCL 50 MG TAB PO PRN (17:26)
[2022-01-30] MEDS: SOTALOL HCL 80 MG TAB PO SCH (17:26)
[2022-01-30] MEDS: NYSTATIN PWDR 100000 UNIT/GM TOP SCH (20:18)
[2022-01-30] MEDS: SODIUM BICARB 325 MG TAB PO SCH (20:18)
[2022-01-30] MEDS: FAMOTIDINE 20 MG TAB PO SCH (20:18)
[2022-01-30] MEDS: ATORVASTATIN 10 MG TAB PO SCH (20:18)
[2022-01-30] MEDS: HYDROCODONE/APAP 5/325 MG TAB PO SCH (20:19)
[2022-01-31] MEDS: PIPER TAZO 3.375 GM in NA CHLORIDE 0.9% 100 ML IV SCH ×3 (00:08→16:30)
[2022-01-31] MEDS: VANCOMYCIN 0.75 GM in NA CHLORIDE 0.9% 150 ML IVPB SCH ×2 (00:09→20:43)
[2022-01-31] MEDS: TRAMADOL HCL 50 MG TAB PO PRN (00:14)
[2022-01-31] MEDS: KCL 20 MEQ/100 mL IVPB 20 MEQ/100 ML BAG IV SCH ×2 (03:16→05:16)
[2022-01-31] MEDS: LEVOTHYROXINE SOD 0.1 MG TAB PO SCH (05:17)
[2022-01-31] MEDS: SOTALOL HCL 80 MG TAB PO SCH ×2 (05:17→17:12)
[2022-01-31] MEDS: D5 0.9 NS 1,000 ML IV SCH (05:23)
[2022-01-31] MEDS: LIDOCAINE 4% PATCH TOP SCH (08:21)
[2022-01-31] MEDS: ENOXAPARIN 30 MG/0.3 ML SQ SCH (08:21)
[2022-01-31] MEDS: ASCORBIC ACID 500 MG TABLET PO SCH (08:22)
[2022-01-31] MEDS: MAGNESIUM OXIDE 400 MG TAB PO SCH (08:22)
[2022-01-31] MEDS: FUROSEMIDE 20 MG TABLET PO SCH (08:22)
[2022-01-31] MEDS: FAMOTIDINE 20 MG TAB PO SCH ×2 (08:22→20:41)
[2022-01-31] MEDS: FE SULF/FA/VIT B COMP & C TAB PO SCH (08:22)
[2022-01-31] MEDS: AMLODIPINE 5 MG TAB PO SCH (08:22)
[2022-01-31] MEDS: SODIUM BICARB 325 MG TAB PO SCH ×2 (08:22→20:40)
[2022-01-31] MEDS: LOSARTAN POTASSIUM 50 MG TABLET PO SCH (08:22)
[2022-01-31] MEDS: NYSTATIN PWDR 100000 UNIT/GM TOP SCH ×2 (08:23→20:41)
[2022-01-31] MEDS: ZINC SULFATE 220 MG CAP PO SCH (08:23)
[2022-01-31] MEDS: HYDROCODONE/APAP 5/325 MG TAB PO SCH ×2 (08:23→20:40)
[2022-01-31] MEDS ORDERED: LIDOCAINE 4% PATCH TOP SCH (09:00)
[2022-01-31] MEDS: OPTH OPTH SCH (09:00)
[2022-01-31] MEDS: TIMOLOL MALEATE 0.5% OPTH SCH (09:00)
[2022-01-31] MEDS: ENSURE HIGH PROTEIN 237 ML CAN PO SCH (12:17)
[2022-01-31] MEDS ORDERED: POTASSIUM CL 40 MEQ in NA CHLORIDE 0.9% 500 ML IV SCH (13:00)
[2022-01-31 15:44] LABS: Arterial Blood Carboxyhemoglob 2.3 % (0-1.5); Blood Gas Oxyhemoglobin 93.7 % (94-97); Blood O2 Saturation 97.4 % (92-98.5)
[2022-01-31] MEDS ORDERED: KCL 20 MEQ/100 mL IVPB 20 MEQ/100 ML BAG IV SCH (17:30)
[2022-01-31] MEDS: ATORVASTATIN 10 MG TAB PO SCH (20:41)
[2022-02-01] MEDS: PIPER TAZO 3.375 GM in NA CHLORIDE 0.9% 100 ML IV SCH ×3 (01:10→17:01)
[2022-02-01] MEDS: TRAMADOL HCL 50 MG TAB PO PRN (02:43)
[2022-02-01 05:14] LABS: Absolute Lymphocytes (CBC) 0.6 K/uL (0.7-4.9); Hematocrit 30.1 % (36.0-45.0); Lymphocytes % 4.2 % (15.3-44.8); MCV 95.8 fL (80-100); MPV 7.8 fL (7.6-11.3); RBC Red Blood Cell Count 3.14 M/uL (3.86-4.86)
[2022-02-01] MEDS: SOTALOL HCL 80 MG TAB PO SCH ×2 (05:37→17:00)
[2022-02-01] MEDS: LEVOTHYROXINE SOD 0.1 MG TAB PO SCH (05:37)
[2022-02-01 05:43] LABS: Magnesium 1.9 mg/dL (1.8-2.4)
[2022-02-01 05:45] LABS: Potassium 2.8 mmol/L (3.5-5.1)
[2022-02-01] MEDS ORDERED: KCL 20 MEQ/100 mL IVPB 20 MEQ/100 ML BAG IV SCH (06:00)
[2022-02-01] MEDS: NYSTATIN PWDR 100000 UNIT/GM TOP SCH ×2 (09:00→20:56)
[2022-02-01] MEDS: TIMOLOL MALEATE 0.5% OPTH SCH (09:00)
[2022-02-01] MEDS: OPTH OPTH SCH (09:00)
[2022-02-01] MEDS: LIDOCAINE 4% PATCH TOP SCH (09:32)
[2022-02-01] MEDS: FUROSEMIDE 20 MG TABLET PO SCH (09:33)
[2022-02-01] MEDS: LOSARTAN POTASSIUM 50 MG TABLET PO SCH (09:33)
[2022-02-01] MEDS: ZINC SULFATE 220 MG CAP PO SCH (09:34)
[2022-02-01] MEDS: ASCORBIC ACID 500 MG TABLET PO SCH (09:34)
[2022-02-01] MEDS: AMLODIPINE 5 MG TAB PO SCH (09:34)
[2022-02-01] MEDS: FE SULF/FA/VIT B COMP & C TAB PO SCH (09:34)
[2022-02-01] MEDS: MAGNESIUM OXIDE 400 MG TAB PO SCH (09:35)
[2022-02-01] MEDS: HYDROCODONE/APAP 5/325 MG TAB PO SCH ×2 (09:35→20:55)
[2022-02-01] MEDS: FAMOTIDINE 20 MG TAB PO SCH ×2 (09:35→20:55)
[2022-02-01] MEDS: ENOXAPARIN 30 MG/0.3 ML SQ SCH (09:37)
[2022-02-01] MEDS: KCL 20 MEQ/100 mL IVPB 20 MEQ/100 ML BAG IV SCH ×5 (10:00→21:39)
[2022-02-01] MEDS: ENSURE HIGH PROTEIN 237 ML CAN PO SCH (10:56)
[2022-02-01] MEDS: SODIUM CHLORIDE 1 GM TAB PO SCH ×2 (10:56→20:55)
[2022-02-01] MEDS: VANCOMYCIN 0.75 GM in NA CHLORIDE 0.9% 150 ML IVPB SCH (12:00)
[2022-02-01] MEDS: VANCOMYCIN 750 MG in NA CHLORIDE 0.9% 150 ML IVPB SCH (15:53)
--- NOTE | 2022-02-01 16:06 | PN ---
Date of Progress Note: 01/31/2022 Subjective: The patient was seen this morning for followup. Her was present with her at bed side and the patient reported that she was feeling better, also reported same thing. When I saw her, she was on nasal cannula oxygen. She did remain on BiPAP all night. Objective: Vital Signs: Reviewed. HEENT: Unremarkable. Lungs: Bilateral good equal air entry. Clear to auscultation. Heart: Sounds normal. Abdomen: Soft. Bowel sounds normal. No guarding, rigidity, tenderness, distention. Extremities: No leg edema. Laboratory Data: Potassium level is 2.9 today. Impression: 1.Hypokalemia. 2.Acute respiratory failure with hypoxia and hypercapnia. 3.Left hip intertrochanteric fracture, status post surgery. 4.Anemia. 5.Hypertension. 6.Hyponatremia. Plan: We will go ahead and repeat blood work tomorrow morning. Continue current empiric antibiotics . Continue oxygen replacement therapy. Continue BiPAP therapy. We will continue current DVT prophy laxis and pain medications per order. I will see her tomorrow for followup. Plan of treatment discu ssed with her and her . GAYLE/MODL Voice ID: [id number] Report ID: [id number]
--- NOTE | 2022-02-01 16:24 | PN ---
Date of Progress Note: 02/01/2022 Subjective: The patient was seen this morning for followup. No new complaints or problems reported by the patient. She was on nasal cannula oxygen when I saw her and her family members were at bedside including and son. Objective: Vital Signs: Reviewed. HEENT: Unremarkable. Lungs: Clear to auscultation. Heart: Sounds normal. Abdomen: Soft. Bowel sounds normal. No guarding, rigidity, tenderness, distention. Extremities: Trace leg edema. Laboratory Data: Sodium 145, potassium 2.8, chloride 104, bicarb 39, BUN 13, creatinine 0.40, glucose 144. White count 13.3, hemoglobin 10, platelets 301. Impression: 1. Acute respiratory failure with hypoxia and hypercapnia. 2. Hypokalemia. 3. Anemia. 4. Hyponatremia. 5. Hypertension. Plan: We will go ahead and continue current empiric antibiotic, continue antihypertensive medication which is amlodipine and losartan. Continue current DVT prophylaxis. We will go ahead and continue to follow with Dr. Paris and tomorrow we will have Social Service initiate the process of [facility] facility placement. Details and plan of treatment discussed with the patient and the patient's and son today. We will repeat blood work tomorrow morning. We will discontinue sodium bicarbonate and again start sodium chloride for hyponatremia problem. GAYLE/MODL Voice ID: [id number] Report ID: [id number]
--- NOTE | 2022-02-01 17:24 | HP ---
Date of Admission: 01/30/2022 Chief Complaint: Altered mental status and low potassium. History Of Present Illness: This is an 81-year-old female patient, who was admitted to rehab floor after her hip fracture and this morning she was transferred back to medical floor because of change in her condition. Nurse contacted me this morning and informed me that the patient was having altered mental status, she was not responding to verbal stimuli and arterial blood gas was done, stat CT of the head was done. CAT scan of the head was negative for any acute changes and potassium level was very low at 2.2. Decision was made to transfer the patient to medical floor for further management. Allergies: NO KNOWN ALLERGIES. Medications: List reviewed. Review of Systems: Musculoskeletal: Chronic back pain and joint pain. Constitutional: Generalized weakness. Respiratory: Shortness of breath. All other systems reviewed and negative. Past Medical History: Significant for hypothyroidism, impaired fasting glucose,hyponatremia, hypertension, hyperlipidemia, diverticulosis, osteoarthritis at multiple sites, anemia, myelodysplastic syndrome, and osteoporosis. Past Surgical History: Cataract surgery, cholecystectomy, hysterectomy, and back surgery. Family History: Father , had hypertension and stroke. Mother , had cancer of the gallbladder. Sister , had pancreatic cancer and hypertension. Social History: Negative for smoking and alcohol use. Physical Examination: Vital Signs: Temperature 96.8, pulse 68, respiratory rate 18, blood pressure 114/59, oxygen saturation 100% on BiPAP. General: The patient is unresponsive to any verbal stimuli and painful stimuli. She is breathing shallow. HEENT: Head atraumatic, normocephalic. Conjunctivae nonerythematous. Sclerae white. Mouth, no thrush or edema noted. Ears/Nose, no mass, lesion, discharge noted. Neck: Supple. No JVD, lymph nodes, bruit, thyromegaly noted. Lungs: Bilateral good equal air entry. Clear to auscultation. No rhonchi. No rales. Heart: Normal heart sounds, no murmur or gallop. Abdomen: Soft, bowel sounds normal. No guarding, rigidity, tenderness, mass, hepatosplenomegaly, distention, or bruit noted. Extremities: No leg edema. No calf tenderness. Skin: No rash, ulcer, cellulitis. Lymphatics: No lymph node enlargement in neck, supraclavicular, infraclavicular region. Neuro: No focal neurological deficit. Chest: Unremarkable. External Genitalia: Deferred. Rectal: Deferred. Laboratory Data: CAT scan of the head was negative for any acute changes. Sodium this morning 144, potassium 2.2, chloride 103, bicarb 38, BUN 17, creatinine 0.39, glucose 115, ABG shows pH 7.34, pCO2 76.3, pO2 264, saturation 99.2% on 28% FiO2, which is actually not true because the patient was receiving higher level of oxygen just prior to this blood gas, the respiratory therapist could not tell me exactly how much. White count 15.9, hemoglobin 10.1, platelets 299. Impression: 1. Acute respiratory failure with hypoxia and hypercapnia. 2. Hypokalemia. 3. Anemia. 4. Hyponatremia. 5. Metabolic encephalopathy. 6. Left hip intertrochanteric fracture, status post surgery. 7. Hypothyroidism. 8. Impaired fasting glucose. 9. Hypertension. 10. Hyperlipidemia. 11. Diverticulosis. 12. Osteoarthritis, multiple sites. 13. Osteoporosis. Plan: We will go ahead and admit the patient to hospital for further evaluation and management of this problem. The patient is appropriate for inpatient and is expected to spend 2 midnights in hospital. We will go ahead and use BiPAP per protocol, oxygen replacement therapy per order. We will consult Dr. Paris from Pulmonary Service. Continue current DVT prophylaxis using Lovenox. For hypertension, we will continue antihypertensive medication per order. For hyperlipidemia, continue statin therapy per order. We will continue current pain medication as per order. The patient's sodium level is stable and continue sodium bicarbonate per order. We will monitor the patient's electrolytes, replace potassium per protocol. The patient is on empiric antibiotics, Zosyn and we will add vancomycin. At this point, there is no definite source of infection that is known to us. We will follow up on CBC as well. Plan of treatment and advance directives discussed with the patient's and according to the patient's decision, DNR order will be written in the chart. Our plan will be now once the patient recovers is to go ahead and have Social Service assist us with [facility] facility placement. GAYLE/MODL Voice ID: [id number] RADHA
--- NOTE | 2022-02-01 19:47 | P.PN ---
Subjective Date of Service: 02/01/22 Chief Complaint: Chronic respiratory failure PT tranfered from Rehab. Recetn surgical repair of R Hip/ Admitted with desat and hypercapnia. Never smoked Review of Systems General: Weakness Respiratory: Shortness of Breath Musculoskeletal: Leg Pain Physical Examination - Vital Signs Temperature: 98 F Blood Pressure: 165/72 Pulse: 80 Respirations: 18 Pulse Ox (%): 98 - Physical Exam General: Alert, Oriented x3, Mild distress Neck: Supple Respiratory: Clear to auscultation bilaterally, Diminished Cardiovascular: No edema, Normal S1 S2 - Studies Laboratory Data (last 24 hrs) 02/01/22 16:02: Potassium 2.7 L* 02/01/22 05:00: Sodium 145, Potassium 2.8 L*, BUN 13, Creatinine 0.40 L, Glucose 144 H, Magnesium 1.9 02/01/22 05:00: WBC 13.30 H, Hgb 10.0 L, Hct 30.1 L, Plt Count 301 Assessment And Plan - Current Problems (Diagnosis) (1) Chronic respiratory failure with hypercapnia Current Visit: Yes Status: Acute Plan: Pt is age 81 Transferred from Rehab due to desaturation. doubt sepsis. Restrictive lung disorder fro severe Kyphois and will benefit from NIV to prevent readmissions. LAbs CXRY reviewed/ Labs reviewed DC lasix prevent Alkalosis and add Diamox.Hypokalemic
[2022-02-01] MEDS: ATORVASTATIN 10 MG TAB PO SCH (20:55)
[2022-02-01] MEDS ORDERED: WATER FOR INJ,STERILE 10 ML ONE (21:07)
[2022-02-01] MEDS ORDERED: ACETAZOLAMIDE 500 MG IV ONE (21:28)
[2022-02-01] MEDS: ACETAZOLAMIDE 500 MG IV IV SCH (21:39)
[2022-02-02] MEDS: PIPER TAZO 3.375 GM in NA CHLORIDE 0.9% 100 ML IV SCH ×3 (01:03→16:52)
[2022-02-02] MEDS: VANCOMYCIN 750 MG in NA CHLORIDE 0.9% 150 ML IVPB SCH ×2 (03:46→14:28)
[2022-02-02] MEDS: SOTALOL HCL 80 MG TAB PO SCH ×2 (05:56→17:46)
[2022-02-02] MEDS: LEVOTHYROXINE SOD 0.1 MG TAB PO SCH (05:56)
[2022-02-02] MEDS: D5 0.9 NS 1,000 ML IV SCH (08:08)
[2022-02-02] MEDS: ENOXAPARIN 30 MG/0.3 ML SQ SCH (08:12)
[2022-02-02] MEDS: AMLODIPINE 5 MG TAB PO SCH (08:25)
[2022-02-02] MEDS: ASCORBIC ACID 500 MG TABLET PO SCH (08:26)
[2022-02-02] MEDS: HYDROCODONE/APAP 5/325 MG TAB PO SCH ×2 (08:26→20:10)
[2022-02-02] MEDS: SODIUM CHLORIDE 1 GM TAB PO SCH ×2 (08:26→20:12)
[2022-02-02] MEDS: ZINC SULFATE 220 MG CAP PO SCH (08:26)
[2022-02-02] MEDS: FE SULF/FA/VIT B COMP & C TAB PO SCH (08:26)
[2022-02-02] MEDS: FAMOTIDINE 20 MG TAB PO SCH ×2 (08:26→20:10)
[2022-02-02] MEDS: MAGNESIUM OXIDE 400 MG TAB PO SCH (08:27)
[2022-02-02] MEDS: LOSARTAN POTASSIUM 50 MG TABLET PO SCH (08:27)
[2022-02-02] MEDS: LIDOCAINE 4% PATCH TOP SCH (08:27)
[2022-02-02] MEDS: TIMOLOL MALEATE 0.5% OPTH SCH (08:28)
[2022-02-02] MEDS: OPTH OPTH SCH (08:28)
[2022-02-02] MEDS: NYSTATIN PWDR 100000 UNIT/GM TOP SCH ×2 (08:29→20:13)
[2022-02-02 09:16] LABS: Bilirubin Total 1.2 mg/dL (0.2-1.0); Protein, Total 6.2 g/dL (6.4-8.2)
[2022-02-02 09:17] LABS: Potassium 2.7 mmol/L (3.5-5.1)
[2022-02-02] MEDS: ENSURE HIGH PROTEIN 237 ML CAN PO SCH (12:00)
[2022-02-02] MEDS: ACETAZOLAMIDE 500 MG IV IV SCH (13:57)
[2022-02-02] MEDS ORDERED: VANCOMYCIN 500 MG/VIAL ONE (14:15)
[2022-02-02] MEDS: ATORVASTATIN 10 MG TAB PO SCH (20:12)
[2022-02-02] MEDS: KCL 20 MEQ/100 mL IVPB 20 MEQ/100 ML BAG IV SCH ×2 (20:12→22:57)
[2022-02-02] MEDS ORDERED: KCL 20 MEQ/100 mL IVPB 200 ML IV ONE (22:56)
[2022-02-03] MEDS: PIPER TAZO 3.375 GM in NA CHLORIDE 0.9% 100 ML IV SCH ×3 (01:09→16:54)
[2022-02-03] MEDS: KCL 20 MEQ/100 mL IVPB 20 MEQ/100 ML BAG IV SCH ×4 (01:11→15:05)
[2022-02-03] MEDS: VANCOMYCIN 750 MG in NA CHLORIDE 0.9% 150 ML IVPB SCH ×2 (03:00→09:00)
[2022-02-03] MEDS: SOTALOL HCL 80 MG TAB PO SCH ×2 (06:06→16:54)
[2022-02-03] MEDS: LEVOTHYROXINE SOD 0.1 MG TAB PO SCH (06:06)
--- NOTE | 2022-02-03 06:56 | PN ---
Date of Progress Note: 02/02/2022 Subjective: Patient was seen this morning for followup. No new complaints or problems reported by h er. Her was present with her at bedside. She used BiPAP all night. This morning when I saw her, she was on nasal cannula oxygen. Objective: Vital Signs: Reviewed. HEENT: Unremarkable. Lungs: Clear to auscultation. Heart: Sounds normal. Abdomen: Soft. Bowel sounds normal. No guarding, rigidity, tenderness, distention. Extremities: No leg edema. Laboratory Data: Labs from this morning, is pending. Impression: 1.Acute respiratory failure with hypoxia and hypercapnia. 2.Anemia. 3.Hypokalemia. 4.Left hip intertrochanteric fracture. 5.Hypertension. 6.Generalized weakness. 7.Debility. Plan: We will go ahead and continue current medication. Continue to replace electrolytes per protoc ol. We will go ahead and continue current empiric antibiotic, which is Zosyn and vancomycin. Pain m edications will be also continued per order. Physical Therapy to continue to work with the patient a nd so I have requested Social Service to assist with discharge planning. [facility] facility [facility] acement is recommended for patient and is in agreement with that. The patient really would l marcio to go home, but realizes that she is not able to return back home until she gets strong e nough to do so and she will need to go to shelter facility, which agrees with the plan. GAYLE/MODL Voice ID: [id number] Report ID: [id number]
[2022-02-03] MEDS: OPTH OPTH SCH (09:00)
[2022-02-03] MEDS: NYSTATIN PWDR 100000 UNIT/GM TOP SCH ×2 (09:00→21:00)
[2022-02-03] MEDS: TIMOLOL MALEATE 0.5% OPTH SCH (09:00)
[2022-02-03] MEDS: HYDROCODONE/APAP 5/325 MG TAB PO SCH ×2 (09:01→21:01)
[2022-02-03] MEDS: FAMOTIDINE 20 MG TAB PO SCH ×2 (09:01→21:01)
[2022-02-03] MEDS: LOSARTAN POTASSIUM 50 MG TABLET PO SCH (09:01)
[2022-02-03] MEDS: SODIUM CHLORIDE 1 GM TAB PO SCH ×2 (09:01→21:01)
[2022-02-03] MEDS: AMLODIPINE 5 MG TAB PO SCH (09:01)
[2022-02-03] MEDS: ACETAZOLAMIDE 500 MG IV IV SCH (09:02)
[2022-02-03] MEDS: FE SULF/FA/VIT B COMP & C TAB PO SCH (09:02)
[2022-02-03] MEDS: ZINC SULFATE 220 MG CAP PO SCH (09:02)
[2022-02-03] MEDS: ENOXAPARIN 30 MG/0.3 ML SQ SCH (09:02)
[2022-02-03] MEDS: MAGNESIUM OXIDE 400 MG TAB PO SCH (09:02)
[2022-02-03] MEDS: ASCORBIC ACID 500 MG TABLET PO SCH (09:02)
[2022-02-03] MEDS: LIDOCAINE 4% PATCH TOP SCH (09:03)
[2022-02-03 09:06] LABS: Absolute Lymphocytes (CBC) 0.5 K/uL (0.7-4.9); Hematocrit 27.2 % (36.0-45.0); Lymphocytes % 4.4 % (15.3-44.8); MCV 96.8 fL (80-100); MPV 8.3 fL (7.6-11.3); RBC Red Blood Cell Count 2.81 M/uL (3.86-4.86)
[2022-02-03 09:18] LABS: Potassium 2.5 mmol/L (3.5-5.1)
[2022-02-03] MEDS: ENSURE HIGH PROTEIN 237 ML CAN PO SCH (12:00)
[2022-02-03] MEDS: D5 0.9 NS 1,000 ML IV SCH (16:54)
[2022-02-03] MEDS ORDERED: KCL 20 MEQ/100 mL IVPB 20 MEQ/100 ML BAG IV SCH (21:00)
[2022-02-03] MEDS: ATORVASTATIN 10 MG TAB PO SCH (21:01)
[2022-02-04] MEDS: PIPER TAZO 3.375 GM in NA CHLORIDE 0.9% 100 ML IV SCH ×3 (01:01→17:59)
[2022-02-04] MEDS: VANCOMYCIN 750 MG in NA CHLORIDE 0.9% 150 ML IVPB SCH ×2 (03:10→20:40)
[2022-02-04] MEDS: LEVOTHYROXINE SOD 0.1 MG TAB PO SCH (05:42)
[2022-02-04] MEDS: SOTALOL HCL 80 MG TAB PO SCH ×2 (05:42→17:52)
[2022-02-04] MEDS: KCL 20 MEQ/100 mL IVPB 20 MEQ/100 ML BAG IV SCH ×2 (06:31→08:30)
[2022-02-04] MEDS ORDERED: NACHLORIDE 0.45% 1,000 ML IV SCH (07:00)
[2022-02-04] MEDS: ENOXAPARIN 30 MG/0.3 ML SQ SCH (08:30)
[2022-02-04] MEDS: ASCORBIC ACID 500 MG TABLET PO SCH (08:31)
[2022-02-04] MEDS: HYDROCODONE/APAP 5/325 MG TAB PO SCH ×2 (08:31→20:45)
[2022-02-04] MEDS: LIDOCAINE 4% PATCH TOP SCH (08:31)
[2022-02-04] MEDS: AMLODIPINE 5 MG TAB PO SCH (08:32)
[2022-02-04] MEDS: FAMOTIDINE 20 MG TAB PO SCH ×2 (08:33→20:45)
[2022-02-04] MEDS: MAGNESIUM OXIDE 400 MG TAB PO SCH (08:33)
[2022-02-04] MEDS: FE SULF/FA/VIT B COMP & C TAB PO SCH (08:33)
[2022-02-04] MEDS: ZINC SULFATE 220 MG CAP PO SCH (08:33)
[2022-02-04] MEDS: LOSARTAN POTASSIUM 50 MG TABLET PO SCH (08:33)
[2022-02-04] MEDS ORDERED: WATER FOR INJECTION,STERILE 5 ML ONE (08:51)
[2022-02-04] MEDS: ACETAZOLAMIDE 500 MG IV IV SCH (08:56)
[2022-02-04] MEDS: NYSTATIN PWDR 100000 UNIT/GM TOP SCH ×2 (08:59→20:44)
[2022-02-04] MEDS: OPTH OPTH SCH (08:59)
[2022-02-04] MEDS: TIMOLOL MALEATE 0.5% OPTH SCH (08:59)
[2022-02-04] MEDS: WATER FOR INJ,STERILE 10 ML IV SCH (09:00)
--- NOTE | 2022-02-04 10:30 | PN ---
Date of Progress Note: 02/03/2022 Subjective: The patient was seen this morning for followup. No new complaints or problems reported by the patient. She was sleeping, arousable, not in any distress. Objective: Vital Signs: Reviewed. HEENT: Unremarkable. Lungs: Clear to auscultation. Heart: Sounds normal. Abdomen: Soft. Bowel sounds normal. No guarding, rigidity, tenderness, distention. Extremities: No leg edema. Laboratory Data: Reviewed. Potassium still remained low. Impression: 1.Hypokalemia. 2.Left hip intertrochanteric fracture. 3.Anemia. 4.Hypertension. 5.Generalized weakness. 6.Debility. 7.Acute respiratory failure with hypoxia and hypercapnia. Plan: Social Service is assisting with residential facility placement. We will replace karen porter per order. Continue oxygen replacement therapy. Continue current empiric antibiotic and I will se e her tomorrow for followup. Possible discharge to go to residential facility this week. GAYLE/MODL Voice ID: [id number] Report ID: [id number]
[2022-02-04] MEDS: ENSURE HIGH PROTEIN 237 ML CAN PO SCH (11:15)
[2022-02-04] MEDS ORDERED: KCL 20 MEQ/100 mL IVPB 20 MEQ/100 ML BAG IV SCH (16:00)
[2022-02-04] MEDS: ATORVASTATIN 10 MG TAB PO SCH (20:44)
[2022-02-05] MEDS: PIPER TAZO 3.375 GM in NA CHLORIDE 0.9% 100 ML IV SCH (01:02)
[2022-02-05 04:49] LABS: Absolute Lymphocytes (CBC) 0.5 K/uL (0.7-4.9); Hematocrit 30.2 % (36.0-45.0); Lymphocytes % 3.3 % (15.3-44.8); MCV 98.9 fL (80-100); MPV 8.3 fL (7.6-11.3); RBC Red Blood Cell Count 3.05 M/uL (3.86-4.86)
[2022-02-05 05:00] LABS: Magnesium 2.4 mg/dL (1.8-2.4); Potassium 3.3 mmol/L (3.5-5.1)
[2022-02-05] MEDS: KCL 20 MEQ/100 mL IVPB 20 MEQ/100 ML BAG IV SCH ×2 (05:23→09:02)
[2022-02-05] MEDS: LEVOTHYROXINE SOD 0.1 MG TAB PO SCH (05:24)
[2022-02-05] MEDS: SOTALOL HCL 80 MG TAB PO SCH ×2 (05:24→17:38)
[2022-02-05 05:29] LABS: Blood Morphology Comment NOT SEEN (NOT SEEN); Platelet Estimate ADEQ
--- NOTE | 2022-02-05 05:57 | PN ---
Date of Progress Note: 02/04/2022 Subjective: The patient was seen this morning for followup. Her was with her at bedside. N o new complaints or problems reported by the patient lying in bed, on nasal cannula oxygen. She did use BiPAP all throughout the night. Objective: Vital Signs: Reviewed. HEENT: Unremarkable. Lungs: Clear to auscultation. Heart: Sounds normal. Abdomen: Soft. Bowel sounds normal. No guarding, rigidity, tenderness, distention. Extremities: Trace edema of left leg. Laboratory Data: Sodium 150, potassium 3, chloride 117, bicarb 29, BUN 20, creatinine 0.64, glucose 98. Impression: 1.Left hip intertrochanteric fracture. 2.Volume depletion. 3.Hypokalemia. 4.Chronic diastolic heart failure. 5.Acute respiratory failure with hypoxia and hypercapnia. Plan: We will go ahead and continue BiPAP and oxygen replacement therapy per order. We will discont inue sodium chloride. Change IV fluids from D5 normal saline to half-normal saline. Replace electro lyte per protocol. Repeat blood work tomorrow morning. Continue current empiric antibiotics and I w ill see her tomorrow for followup. The patient has been accepted to go to [facility] and hopefully will be able to discharge her to go there on February 06, 2022. Details were discussed with the patient and the patient's . GAYLE/MODL Voice ID: [id number] Report ID: [id number]
--- NOTE | 2022-02-05 07:45 | RAD REPORT ---
EXAM DESCRIPTION: Peggy Single View02/05/2022 6:52 am CLINICAL HISTORY: Leukocytosis COMPARISON: January 29, 2022 FINDINGS: Marked scoliosis Probable small right pleural effusion with right basilar atelectasis Mild bilateral pulmonary opacities may represent mild pulmonary edema or infiltrates. Cardiomegaly
[2022-02-05] MEDS: OPTH OPTH SCH (09:00)
[2022-02-05] MEDS: TIMOLOL MALEATE 0.5% OPTH SCH (09:00)
[2022-02-05] MEDS: WATER FOR INJ,STERILE 10 ML IV SCH (09:35)
[2022-02-05] MEDS: ACETAZOLAMIDE 500 MG IV IV SCH (09:35)
[2022-02-05] MEDS: LIDOCAINE 4% PATCH TOP SCH (09:35)
[2022-02-05] MEDS: ENOXAPARIN 30 MG/0.3 ML SQ SCH (09:36)
[2022-02-05] MEDS: MAGNESIUM OXIDE 400 MG TAB PO SCH (09:44)
[2022-02-05] MEDS: ZINC SULFATE 220 MG CAP PO SCH (09:44)
[2022-02-05] MEDS: LOSARTAN POTASSIUM 50 MG TABLET PO SCH (09:44)
[2022-02-05] MEDS: FAMOTIDINE 20 MG TAB PO SCH ×2 (09:44→19:39)
[2022-02-05] MEDS: ASCORBIC ACID 500 MG TABLET PO SCH (09:44)
[2022-02-05] MEDS: FE SULF/FA/VIT B COMP & C TAB PO SCH (09:44)
[2022-02-05] MEDS: AMLODIPINE 5 MG TAB PO SCH (09:45)
[2022-02-05] MEDS: NYSTATIN PWDR 100000 UNIT/GM TOP SCH ×2 (09:57→21:30)
[2022-02-05] MEDS: HYDROCODONE/APAP 5/325 MG TAB PO SCH ×2 (10:06→19:39)
[2022-02-05] MEDS: D5W 1,000 ML IV SCH (10:10)
[2022-02-05] MEDS: ENSURE HIGH PROTEIN 237 ML CAN PO SCH (12:17)
[2022-02-05 16:42] LABS: Specific Gravity 1.015 (1.005-1.030); Urine Bilirubin NEGATIVE (Negative); Urine Blood Negative (Negative); Urine Clarity Clear (Clear); Urine Color Yellow (Yellow); Urine Crystals Unidentified Few /HPF (None Seen); Urine Glucose NEGATIVE (Negative); Urine Mucus Slight /HPF (None Seen); Urine Protein TRACE (Negative); Urine RBC <5 /HPF (None Seen); Urine Urobilinogen Normal (Normal)
[2022-02-05] MEDS: ATORVASTATIN 10 MG TAB PO SCH (19:37)
[2022-02-06] MEDS: D5W 1,000 ML IV SCH (05:15)
[2022-02-06 05:46] LABS: Absolute Lymphocytes (CBC) 0.6 K/uL (0.7-4.9); Hematocrit 26.9 % (36.0-45.0); Lymphocytes % 4.8 % (15.3-44.8); MCV 97.6 fL (80-100); MPV 9.6 fL (7.6-11.3); RBC Red Blood Cell Count 2.75 M/uL (3.86-4.86)
[2022-02-06 05:56] LABS: Magnesium 2.3 mg/dL (1.8-2.4)
--- NOTE | 2022-02-06 06:21 | PN ---
Date of Progress Note: 02/05/2022 Subjective: The patient was seen this morning for followup. No new complaints or problems reported by or patient. Lying in bed, not in distress. Objective: Vital Signs: Reviewed. HEENT: Examination unremarkable. Lungs: Clear to auscultation. Cardiac: Heart sounds normal. Abdomen: Soft, bowel sounds normal. No guarding, rigidity, tenderness, distention. Extremities: On exam, trace leg edema. SKIN: On examination, some redness of the skin in the mid thoracic spine region. No open wound, and similar area on the sacrococcygeal region. Laboratory Data: White count 14.8, hemoglobin 9.6, platelets 233. Sodium 151, potassium 3.3, chlori de 117, bicarb 30, BUN 27, creatinine 0.72, glucose 87. Impression: 1.Leukocytosis. 2.Hypokalemia. 3.Volume depletion. 4.Hypernatremia. 5.Hypertension. 6.Anemia. Plan: The patient is on Zosyn and vancomycin and white count was coming down, but now it has started to go up again. She had pneumonia before and what we will have to do is discontinue current antibio tics. We will repeat another chest x-ray, get urinalysis, blood culture. She does not have any diar mike, so no reason to do any stool test for Clostridium difficile. We will go ahead and give IV flui d D5W for correction of high sodium and volume depletion problem. Repeat blood work tomorrow morning . Continue to monitor electrolytes and replace electrolytes per protocol. Follow up on chest x-ray results. We will see her tomorrow for followup. Plan of treatment discussed with the patient's and the patien tLiang ARAUJO/MODL Voice ID: [id number] Report ID: [id number]
[2022-02-06] MEDS: SOTALOL HCL 80 MG TAB PO SCH ×2 (06:40→18:00)
[2022-02-06] MEDS: LEVOTHYROXINE SOD 0.1 MG TAB PO SCH (06:41)
[2022-02-06] MEDS ORDERED: POTASSIUM 25 MEQ EFFERV TAB PO ONE (08:09)
[2022-02-06] MEDS: TIMOLOL MALEATE 0.5% OPTH SCH (09:00)
[2022-02-06] MEDS: WATER FOR INJ,STERILE 10 ML IV SCH (09:00)
[2022-02-06] MEDS: NYSTATIN PWDR 100000 UNIT/GM TOP SCH ×2 (09:00→21:00)
[2022-02-06] MEDS: OPTH OPTH SCH (09:00)
[2022-02-06] MEDS: MAGNESIUM OXIDE 400 MG TAB PO SCH (09:00)
[2022-02-06] MEDS: ACETAZOLAMIDE 500 MG IV IV SCH (09:32)
[2022-02-06] MEDS: DOXYCYCLINE 100 MG in NA CHLORIDE 0.9% 100 ML IVPB SCH ×2 (09:33→21:01)
[2022-02-06] MEDS: ZINC SULFATE 220 MG CAP PO SCH (09:38)
[2022-02-06] MEDS: FAMOTIDINE 20 MG TAB PO SCH ×2 (09:38→20:59)
[2022-02-06] MEDS: ENOXAPARIN 30 MG/0.3 ML SQ SCH (09:38)
[2022-02-06] MEDS: ASCORBIC ACID 500 MG TABLET PO SCH (09:38)
[2022-02-06] MEDS: AMLODIPINE 5 MG TAB PO SCH (09:38)
[2022-02-06] MEDS: LIDOCAINE 4% PATCH TOP SCH (09:39)
[2022-02-06] MEDS: SPIRONOLACTONE 25 MG TABLET PO SCH (09:39)
[2022-02-06] MEDS: FE SULF/FA/VIT B COMP & C TAB PO SCH (09:39)
[2022-02-06] MEDS: HYDROCODONE/APAP 5/325 MG TAB PO SCH ×2 (09:39→20:59)
[2022-02-06] MEDS: KCL 20 MEQ/100 mL IVPB 20 MEQ/100 ML BAG IV SCH ×2 (16:51→18:29)
--- NOTE | 2022-02-06 20:03 | PN ---
Date of Progress Note: 02/06/2022 Subjective: Patient was seen this morning for followup. No new complaints or problems reported by t he patient and her and son, who were present. Objective: Vital Signs: Reviewed. HEENT: Unremarkable. Lungs: Clear to auscultation. Heart: Sounds normal. Abdomen: Soft. Bowel sounds normal. No guarding, rigidity, tenderness, distention. Extremities: No leg edema. Laboratory Data: White count 13.2, hemoglobin 8.8, platelets 164. Sodium 147, potassium 3, chloride 115, bicarb 31, BUN 28, creatinine 0.61, glucose 98, magnesium 2.2. Impression: 1.Left hip intertrochanteric fracture. 2.Anemia. 3.Volume depletion. 4.Hypokalemia. 5.Hypertension. 6.Pneumonia. Plan: We will go ahead and follow up on culture results. Start the patient on doxycycline and ceftr iaxone. Replace electrolyte per protocol. Continue current IV fluid D5W. We will discontinue losar kimbrough and start the patient on spironolactone 25 mg daily. Details and plan of treatment discussed wit h the patient and patient's son as well as . I will see her tomorrow for followup. Plan is f or patient to go to [facility] and the earliest possible discharge date will be next week on Wednesday, if her condition is stable by that time. GAYLE/MODL Voice ID: [id number] Report ID: [id number]
[2022-02-06] MEDS: ATORVASTATIN 10 MG TAB PO SCH (20:59)
[2022-02-07] MEDS ORDERED: NA CHLORIDE 0.9% 0 ML ONE (00:16)
[2022-02-07] MEDS: D5W 1,000 ML IV SCH ×2 (01:04→18:59)
[2022-02-07] MEDS: LEVOTHYROXINE SOD 0.1 MG TAB PO SCH (06:03)
[2022-02-07] MEDS: SOTALOL HCL 80 MG TAB PO SCH ×2 (06:03→17:09)
[2022-02-07 07:24] LABS: Absolute Lymphocytes (CBC) 0.6 K/uL (0.7-4.9); Hematocrit 25.3 % (36.0-45.0); Lymphocytes % 4.9 % (15.3-44.8); MCV 97.9 fL (80-100); MPV 9.3 fL (7.6-11.3); RBC Red Blood Cell Count 2.59 M/uL (3.86-4.86)
[2022-02-07 07:38] LABS: Magnesium 2.2 mg/dL (1.8-2.4); Potassium 3.5 mmol/L (3.5-5.1)
[2022-02-07] MEDS: TIMOLOL MALEATE 0.5% OPTH SCH (09:00)
[2022-02-07] MEDS: OPTH OPTH SCH (09:00)
[2022-02-07] MEDS: DOXYCYCLINE 100 MG in NA CHLORIDE 0.9% 100 ML IVPB SCH ×2 (09:05→21:44)
[2022-02-07] MEDS: ENOXAPARIN 30 MG/0.3 ML SQ SCH (09:06)
[2022-02-07] MEDS: ASCORBIC ACID 500 MG TABLET PO SCH (09:07)
[2022-02-07] MEDS: SPIRONOLACTONE 25 MG TABLET PO SCH (09:07)
[2022-02-07] MEDS: HYDROCODONE/APAP 5/325 MG TAB PO SCH ×2 (09:08→21:45)
[2022-02-07] MEDS: AMLODIPINE 5 MG TAB PO SCH (09:09)
[2022-02-07] MEDS: acetaZOLAMIDE 250 MG TAB PO SCH (09:10)
[2022-02-07] MEDS: ZINC SULFATE 220 MG CAP PO SCH (09:10)
[2022-02-07] MEDS: FE SULF/FA/VIT B COMP & C TAB PO SCH (09:10)
[2022-02-07] MEDS: FAMOTIDINE 20 MG TAB PO SCH ×2 (09:10→21:45)
[2022-02-07] MEDS: MAGNESIUM OXIDE 400 MG TAB PO SCH (09:12)
[2022-02-07] MEDS: NYSTATIN PWDR 100000 UNIT/GM TOP SCH ×2 (09:12→21:46)
[2022-02-07] MEDS: LIDOCAINE 4% PATCH TOP SCH (09:15)
--- NOTE | 2022-02-07 15:54 | PN ---
Date of Progress Note: 02/07/2022 Subjective: The patient was seen this morning for followup. She was lying on nasal cannula oxygen a t 2 L/minute. Appears very sleepy. She wakes up with her eyes open. Does not answer any questions, not in any respiratory distress. Objective: Vital signs: Reviewed. HEENT: Examination unremarkable. Lungs: Clear to auscultation. Heart: Sounds normal. Abdomen: Soft, bowel sounds normal. No guarding, rigidity, tenderness, distention. Extremities: No leg edema. Laboratory Data: White count 11.6, hemoglobin 8.2, platelets 152. Sodium 144, potassium 3.5, chlori de 113, bicarb 31, BUN 25, creatinine 0.56, glucose 106. Arterial blood gas results reviewed. Impression: 1.Chronic respiratory failure with hypercapnia and hypoxia. 2.Left hip intertrochanteric fracture. 3.Anemia due to acute blood loss. 4.Hypertension. 5.Pneumonia. Plan: We will go ahead and continue current antibiotics. The patient has been using BiPAP therapy o nly at nighttime, but after I looked at her today, I was concerned about CO2 retention and blood gas was done today. Results reviewed and now we will go ahead and use BiPAP most of the time except she can have 2 hours break around mealtime like hour before meal and hour after meals, so altogether abou t 6 hours during daytime. She can stay on nasal cannula oxygen. Otherwise, she will need to stay on BiPAP therapy for this respiratory failure with hypercapnia and hypoxia problem. Overall, prognosis is guarded. I will see her tomorrow for followu pLiang ARAUJO/MODL Voice ID: [id number] Report ID: [id number]
[2022-02-07 18:40] LABS: Arterial Blood Carboxyhemoglob 1.8 % (0-1.5); Blood Gas Oxyhemoglobin 95.4 % (94-97); Blood O2 Saturation 98.6 % (92-98.5)
[2022-02-07] MEDS: ATORVASTATIN 10 MG TAB PO SCH (21:45)
[2022-02-08] MEDS: LEVOTHYROXINE SOD 0.1 MG TAB PO SCH (06:33)
[2022-02-08] MEDS: SOTALOL HCL 80 MG TAB PO SCH ×2 (06:33→17:57)
[2022-02-08] MEDS: OPTH OPTH SCH (09:00)
[2022-02-08] MEDS: TIMOLOL MALEATE 0.5% OPTH SCH (09:00)
[2022-02-08 09:03] LABS: Potassium 3.5 mmol/L (3.5-5.1)
[2022-02-08] MEDS: ZINC SULFATE 220 MG CAP PO SCH (09:37)
[2022-02-08] MEDS: MAGNESIUM OXIDE 400 MG TAB PO SCH (09:37)
[2022-02-08] MEDS: SPIRONOLACTONE 25 MG TABLET PO SCH (09:37)
[2022-02-08] MEDS: FE SULF/FA/VIT B COMP & C TAB PO SCH (09:38)
[2022-02-08] MEDS: HYDROCODONE/APAP 5/325 MG TAB PO SCH ×2 (09:38→21:27)
[2022-02-08] MEDS: FAMOTIDINE 20 MG TAB PO SCH ×2 (09:39→21:27)
[2022-02-08] MEDS: ASCORBIC ACID 500 MG TABLET PO SCH (09:39)
[2022-02-08] MEDS: acetaZOLAMIDE 250 MG TAB PO SCH (09:39)
[2022-02-08] MEDS: ENOXAPARIN 30 MG/0.3 ML SQ SCH (09:40)
[2022-02-08] MEDS: DOXYCYCLINE 100 MG in NA CHLORIDE 0.9% 100 ML IVPB SCH ×2 (09:40→21:28)
[2022-02-08] MEDS: LIDOCAINE 4% PATCH TOP SCH (09:40)
[2022-02-08] MEDS: AMLODIPINE 5 MG TAB PO SCH (11:05)
[2022-02-08] MEDS: NYSTATIN PWDR 100000 UNIT/GM TOP SCH ×2 (11:10→21:00)
--- NOTE | 2022-02-08 16:33 | PN ---
Date of Progress Note: 02/08/2022 Subjective: Patient was seen this morning for followup. She was more awake and alert today when I s aw her compared to yesterday. Her son and were present in the room. Objective: Vital Signs: Reviewed. HEENT: Unremarkable. Lungs: Clear to auscultation. Heart: Sounds normal. Abdomen: Soft. Bowel sounds normal. No guarding, rigidity, tenderness, distention. Extremities: No leg edema. Laboratory Data: Sodium 141, potassium 3.5, chloride 109, bicarb 30, BUN 22, creatinine 0.45, glucos e 105. Impression: 1.Left hip intertrochanteric fracture. 2.Anemia due to acute blood loss. 3.Hypertension. 4.Chronic respiratory failure with hypoxia and hypercapnia. Plan: We will go ahead and continue BiPAP therapy per order. Continue current empiric antibiotics f or pneumonia. Her volume depletion problem has resolved and I did discuss with the patient's regarding plan to use BiPAP all night and most of the time during day time except altogether about 6 hours she can take time off around mealtime as per order. [facility] either tomorrow or day after tomorrow depending on patient's condition. GAYLE/MODL Voice ID: [id number] Report ID: [id number]
[2022-02-08] MEDS: D5W 1,000 ML IV SCH (16:44)
[2022-02-08] MEDS: ATORVASTATIN 10 MG TAB PO SCH (21:27)
[2022-02-09] MEDS: LEVOTHYROXINE SOD 0.1 MG TAB PO SCH (06:06)
[2022-02-09] MEDS: SOTALOL HCL 80 MG TAB PO SCH ×2 (06:06→17:28)
[2022-02-09 07:13] LABS: Absolute Lymphocytes (CBC) 0.7 K/uL (0.7-4.9); Lymphocytes % 6.8 % (15.3-44.8); MCV 96.1 fL (80-100); MPV 8.8 fL (7.6-11.3); RBC Red Blood Cell Count 2.61 M/uL (3.86-4.86)
[2022-02-09 07:20] LABS: Potassium 3.3 mmol/L (3.5-5.1)
[2022-02-09] MEDS: FE SULF/FA/VIT B COMP & C TAB PO SCH (08:00)
[2022-02-09] MEDS: DOXYCYCLINE 100 MG in NA CHLORIDE 0.9% 100 ML IVPB SCH ×2 (08:38→20:51)
[2022-02-09] MEDS: ENOXAPARIN 30 MG/0.3 ML SQ SCH (08:40)
[2022-02-09] MEDS: LIDOCAINE 4% PATCH TOP SCH (08:40)
[2022-02-09] MEDS: FAMOTIDINE 20 MG TAB PO SCH ×2 (08:41→20:51)
[2022-02-09] MEDS: SPIRONOLACTONE 25 MG TABLET PO SCH (08:41)
[2022-02-09] MEDS: MAGNESIUM OXIDE 400 MG TAB PO SCH (08:41)
[2022-02-09] MEDS: ZINC SULFATE 220 MG CAP PO SCH (08:41)
[2022-02-09] MEDS: HYDROCODONE/APAP 5/325 MG TAB PO SCH ×2 (08:41→20:50)
[2022-02-09] MEDS: OPTH OPTH SCH (08:42)
[2022-02-09] MEDS: ASCORBIC ACID 500 MG TABLET PO SCH (08:42)
[2022-02-09] MEDS: TIMOLOL MALEATE 0.5% OPTH SCH (08:42)
[2022-02-09] MEDS: AMLODIPINE 5 MG TAB PO SCH (08:42)
[2022-02-09] MEDS: acetaZOLAMIDE 250 MG TAB PO SCH (08:42)
[2022-02-09] MEDS: KCL 20 MEQ/100 mL IVPB 20 MEQ/100 ML BAG IV SCH ×2 (08:42→10:45)
[2022-02-09] MEDS: NYSTATIN PWDR 100000 UNIT/GM TOP SCH ×2 (08:43→20:52)
[2022-02-09 09:18] LABS: Blood Morphology Comment NOTED (NOT SEEN); Platelet Estimate DECR
[2022-02-09 09:19] LABS: Basophilic Stippling 1+; Rouleau SLIGHT
[2022-02-09] MEDS ORDERED: ALBUTEROL 2.5 MG/3 ML NEB SOL NEB PRN ×2 (11:06→15:00)
[2022-02-09] MEDS ORDERED: IPRATROPIUM BROM 0.5MG/2.5ML NEB PRN ×2 (11:13→15:00)
[2022-02-09] MEDS: D5W 1,000 ML IV SCH (13:08)
--- NOTE | 2022-02-09 16:28 | RAD REPORT ---
EXAM DESCRIPTION: Eront Single View02/09/2022 3:19 pm CLINICAL HISTORY: Chest pain COMPARISON: February 05, 2022 FINDINGS: Bilateral pulmonary opacities have mostly resolved. Mild right basilar atelectasis. There may be small to moderate right and small left pleural effusions. The heart remains enlarged. PICC line in place
[2022-02-09] MEDS: ATORVASTATIN 10 MG TAB PO SCH (20:50)
--- NOTE | 2022-02-09 23:42 | PN ---
Date of Progress Note: 02/09/2022 Subjective: The patient was seen this morning for followup. No new complaints or problems reported by patient. Lying in bed, not in distress. Her was present with her at bedside and she was on BiPAP. Objective: Vital Signs: Reviewed. HEENT: Unremarkable. Lungs: Clear to auscultation. Heart: Sounds normal. Abdomen: Soft. Bowel sounds normal. No guarding, rigidity, tenderness, or distention. Extremities: No leg edema. Impression: 1.Pneumonia. 2.Acute respiratory failure with hypoxia and hypercapnia. 3.Hypertension. 4.Left hip intertrochanteric fracture. Plan: We will go ahead and continue current medication. We will continue current pain medication an d current antibiotic and get a chest x-ray done today. We will see her tomorrow for followup. Possi ble discharge to go to halfway tomorrow depending on patient's condition. GAYLE/MODL Voice ID: [id number] Report ID: [id number]
[2022-02-10 01:27] VITALS: O2SAT 100
[2022-02-10 05:09] LABS: Absolute Lymphocytes (CBC) 0.8 K/uL (0.7-4.9); Lymphocytes % 8.3 % (15.3-44.8); MCV 96.8 fL (80-100); MPV 9.6 fL (7.6-11.3); RBC Red Blood Cell Count 2.59 M/uL (3.86-4.86)
[2022-02-10 05:26] LABS: Potassium 3.8 mmol/L (3.5-5.1)
[2022-02-10] MEDS: SOTALOL HCL 80 MG TAB PO SCH ×2 (05:55→18:17)
[2022-02-10] MEDS: LEVOTHYROXINE SOD 0.1 MG TAB PO SCH (05:55)
[2022-02-10] MEDS ORDERED: KCL 20 MEQ/100 mL IVPB 20 MEQ/100 ML BAG IV SCH (06:00)
[2022-02-10] MEDS: OPTH OPTH SCH (09:00)
[2022-02-10] MEDS: TIMOLOL MALEATE 0.5% OPTH SCH (09:00)
[2022-02-10] MEDS: DOXYCYCLINE 100 MG in NA CHLORIDE 0.9% 100 ML IVPB SCH (09:34)
[2022-02-10] MEDS: acetaZOLAMIDE 250 MG TAB PO SCH (09:38)
[2022-02-10] MEDS: LIDOCAINE 4% PATCH TOP SCH (09:38)
[2022-02-10] MEDS: ZINC SULFATE 220 MG CAP PO SCH (09:38)
[2022-02-10] MEDS: MAGNESIUM OXIDE 400 MG TAB PO SCH (09:38)
[2022-02-10] MEDS: HYDROCODONE/APAP 5/325 MG TAB PO SCH (09:38)
[2022-02-10] MEDS: SPIRONOLACTONE 25 MG TABLET PO SCH (09:38)
[2022-02-10] MEDS: AMLODIPINE 5 MG TAB PO SCH (09:40)
[2022-02-10] MEDS: FAMOTIDINE 20 MG TAB PO SCH (09:40)
[2022-02-10] MEDS: ASCORBIC ACID 500 MG TABLET PO SCH (09:40)
[2022-02-10] MEDS: ENOXAPARIN 30 MG/0.3 ML SQ SCH (09:41)
[2022-02-10] MEDS: FE SULF/FA/VIT B COMP & C TAB PO SCH (09:41)
[2022-02-10] MEDS: NYSTATIN PWDR 100000 UNIT/GM TOP SCH (09:42)
[2022-02-10 16:06] VITALS: BP 140/58; TEMP 97.4
--- NOTE | 2022-02-11 03:05 | DS ---
Date of Discharge: 02/10/2022 Disposition: Discharged to go to [facility]. Physical Examination: HEENT: Unremarkable. Lungs: Clear to auscultation. Heart: Sounds normal. Abdomen: Soft. Bowel sounds normal. No guarding, rigidity, tenderness, or distention. Extremities: No leg edema. Laboratory Data: Today WBC is 9.3, hemoglobin 8.4, and platelets 158 and on 02/01/2022 WBC was 13.3, hemoglobin 10, and platelets 301. Today sodium is 137, potassium 3.8, chloride 106, bicarb 29, BUN 18, creatinine 0.47, glucose 97, and magnesium 2. Discharge Instructions/medications: 1. Use BiPAP all the time. May remove BiPAP 1 hour before and 1 hour after meal time. So BiPAP to be used for 18 hours out of 24 hours and the patient to get 2 hours off around breakfast, lunch, and dinner time. 2. While not using BiPAP, use oxygen 2 L/minute nasal cannula. 3. Doxycycline 100 mg 2 times a day for 1 week. 4. Fall precautions. 5. Consult Physical Therapy and Occupational Therapy. 6. Regular diet. 7. Acetazolamide 250 mg p.o. daily. 8. Sotalol 80 mg 2 times a day. 9. Spironolactone 25 mg p.o. daily. 10. Magnesium oxide 400 mg p.o. daily. 11. Lidocaine patch 4% applied to back daily. 12. Albuterol and Atrovent nebulizer treatment 4 times a day as needed for shortness of breath. 13. Amlodipine 5 mg daily. 14. Atorvastatin 10 mg daily at bedtime. 15. Famotidine 20 mg 2 times a day. 16. Levothyroxine 100 mcg daily. 17. Tylenol 500 mg 4 times a day as needed for pain. 18. Vitamin C 500 mg daily. 19. Zinc 220 mg daily. 20. Nystatin powder to rash 2 times a day as needed. 21. Hemocyte Plus 1 tablet daily. 22. CBC and Chem-7 and magnesium level to be done in 1 week. 23. Change position every 2 hours. 24. Offload heels. 25. Consult Dr. Lim. Hospital Course: This is an 81-year-old pleasant female patient admitted to medical floor after she was transferred from rehab floor. Please see dictated H and P for more information. After patient was admitted to medical floor, her low potassium was corrected. She was given antibiotic for pneumonia and it was vancomycin and Zosyn and subsequently we changed it to doxycycline and she actually has responded very well to doxycycline. Dr. Paris from Pulmonary was consulted. The patient continued to receive her Lovenox during this hospitalization for DVT prophylaxis. Her blood pressure was monitored and antihypertensive medications were given per order. Hemoglobin remained stable and she was taking sodium bicarbonate and sodium chloride for hyponatremia at different times, which were discontinued. She had some volume depletion, which was corrected with IV fluid. We were using BiPAP at nighttime and 2 to 3 days ago, we changed it to all the time except the patient to take off BiPAP around mealtime and this decision was made because she was found to still have hypercapnia during day time. This was around 10 to 10:30 in the morning as per last blood gas, so decision was made to use BiPAP during day time. Today when I saw her, she was looking a lot more awake and alert. Decision was made to send her to nursing home facility of her choice and after all the arrangements were completed today, she was discharged in stable condition. Final Diagnoses: 1. Acute respiratory failure with hypoxia and hypercapnia. 2. Hypokalemia. 3. Pneumonia. 4. Anemia. 5. Paroxysmal atrial fibrillation. 6. Hyponatremia. 7. Volume depletion. 8. Metabolic encephalopathy. 9. Left hip intertrochanteric fracture. 10. Hypothyroidism. 11. Impaired fasting glucose. 12. Hypertension. 13. Hyperlipidemia. 14. Diverticulosis. 15. Osteoarthritis, multiple sites. 16. Osteoporosis. Advanced Directives: Do Not Resuscitate while in the hospital and out of hospital. DNR form was signed this morning and nurse was advised to have Social Service assist patient to complete this form so she can have out of hospital DNR for [facility] as per my discussion with the patient's and as per his decision and patient's decision. GAYLE/MODL Voice ID: [id number] Report ID: [id number]
== END 2022-02-10 19:30 | DRG 193 ==
LOC: 4TH 08:17
PROVIDERS: ADMIT Internal Medicine; ATTEND Internal Medicine
PROC: 5A09557 Assistance with Respiratory Ventilation, Greater than 96 Consecutive Hours, Continuous Positive Airway Pressure (ICD-10-PCS; principal; 2022-01-30)
DX: J18.9 Pneumonia, unspecified organism (principal); G93.41 Metabolic encephalopathy; J96.01 Acute respiratory failure with hypoxia; J96.02 Acute respiratory failure with hypercapnia; E44.1 Mild protein-calorie malnutrition; Z68.1 Body mass index [BMI] 19.9 or less, adult; E87.1 Hypo-osmolality and hyponatremia; I50.32 Chronic diastolic (congestive) heart failure; E87.0 Hyperosmolality and hypernatremia; D62 Acute posthemorrhagic anemia; I11.0 Hypertensive heart disease with heart failure; L89.152 Pressure ulcer of sacral region, stage 2; L89.101 Pressure ulcer of unspecified part of back, stage 1; E78.5 Hyperlipidemia, unspecified; E03.9 Hypothyroidism, unspecified; E86.9 Volume depletion, unspecified; E87.6 Hypokalemia; I48.0 Paroxysmal atrial fibrillation; K57.90 Diverticulosis of intestine, part unspecified, without perforation or abscess without bleeding; M19.09 Primary osteoarthritis, other specified site; G89.29 Other chronic pain; M54.9 Dorsalgia, unspecified; M25.50 Pain in unspecified joint; M81.0 Age-related osteoporosis without current pathological fracture; S72.142D Displaced intertrochanteric fracture of left femur, subsequent encounter for closed fracture with routine healing; R53.81 Other malaise; R73.01 Impaired fasting glucose; Z66 Do not resuscitate; Z90.49 Acquired absence of other specified parts of digestive tract; Z90.710 Acquired absence of both cervix and uterus; Z79.890 Hormone replacement therapy; Z79.899 Other long term (current) drug therapy; Z20.822 Contact with and (suspected) exposure to COVID-19
CPT/HCPCS: 36415; 71045; 80048; 80053; 80202; 81001; 82805; 82947; 83735; 84132; 85025; 87040; 94660; 94760; 97165; J1120; J1650; J2001; J2543; J3370; J3480; J7030; J7040; J7042; U0003